=== PATIENT | male | born 1940 ===

== ENCOUNTER 2019-11-03 13:51 | Inpatient (IN) | payer MEDICAID, MEDICARE ==
[2019-11-03 16:40] LABS: Bilirubin,Urine NEG (Negative); Blood,Urine MOD (Negative); Color,Urine Yellow (Yellow); Mucus,Urine FEW /HPF; Urobilinogen,Urine < 2.0 mg/dL (<2.0)
[2019-11-03] MEDS ORDERED: SODIUM CHLORIDE 0.9% 1000 ML 1,000 ML IV ONE ×2 (16:40)
--- NOTE | 2019-11-03 16:40 | Emergency Department Report ---
ED General Adult HPI - General Chief complaint: Weakness Stated complaint: HYPOTENSION/DEMENTIA/LAB WORK Time Seen by Provider: 11/03/19 15:24 Source: EMS Mode of arrival: Ambulatory Limitations: Altered Mental Status, Physical Limitation - History of Present Illness Initial comments: The patient presents from a local alf for altered mental status and concern for systemic infection. Due to the patient's mental status is not able to add to the history and physical. -: unknown Severity scale (0 -10): 0 Consistency: constant Improves with: none Worsens with: none Associated Symptoms: other (Patient not able to answer questions about associated symptoms) Treatments Prior to Arrival: none - Related Data Previous Rx's Medication Instructions Recorded Last Taken Type Prednisone [predniSONE 10 mg 10 mg PO .TAPER #1 tab.ds.pk 02/02/16 Unknown Rx (6-Day Pack, 21 Tabs)] Amoxicillin/K Clav Tab [Augmentin 1 tab PO Q12HR #5 tab 02/03/16 Unknown Rx 875MG TAB] ALBUTEROL NEB's [Proventil 0.083% 2.5 mg IH Q3HRT PRN #30 nebu 02/04/16 Unknown Rx NEBS] Allergies Allergy/AdvReac Type Severity Reaction Status Date / Time No Known Allergies Allergy Unverified 01/31/16 13:51 ED Review of Systems ROS: Stated complaint: HYPOTENSION/DEMENTIA/LAB WORK Other details as noted in HPI Comment: Unobtainable due to pts medical conditions ED Past Medical Hx - Past Medical History Previous Medical History?: Yes Hx Psychiatric Treatment: Yes (dementia) - Surgical History Past Surgical History?: Yes Additional Surgical History: hand surgery as a child - Social History Smoking Status: Never Smoker Substance Use Type: None - Medications Home Medications: Home Medications Medication Instructions Recorded Confirmed Last Taken Type Prednisone [predniSONE 10 mg 10 mg PO .TAPER #1 tab.ds.pk 02/02/16 Unknown Rx (6-Day Pack, 21 Tabs)] Amoxicillin/K Clav Tab [Augmentin 1 tab PO Q12HR #5 tab 02/03/16 Unknown Rx 875MG TAB] ALBUTEROL NEB's [Proventil 0.083% 2.5 mg IH Q3HRT PRN #30 nebu 02/04/16 Unknown Rx NEBS] ED Physical Exam - General Limitations: Altered Mental Status, Physical Limitation General appearance: other (Altered) - Head Head exam: Present: atraumatic, normocephalic - Eye Eye exam: Present: normal appearance - ENT ENT exam: Present: mucous membranes dry - Neck Neck exam: Present: normal inspection - Respiratory Respiratory exam: Present: normal lung sounds bilaterally. Absent: respiratory distress, wheezes, rales - Cardiovascular Cardiovascular Exam: Present: normal rhythm, tachycardia. Absent: systolic murmur, diastolic murmur, rubs, gallop - GI/Abdominal GI/Abdominal exam: Present: soft, normal bowel sounds. Absent: distended, tenderness - Rectal Rectal exam: Present: deferred - Extremities Exam Extremities exam: Present: normal inspection - Back Exam Back exam: Present: normal inspection - Neurological Exam Neurological exam: Present: altered, other (Not able to assess cranial nerves or motor sensory deficits due to the patient's condition) - Psychiatric Psychiatric exam: Present: other (Not able to assess due to the patient's condition) - Skin Skin exam: Present: warm, dry, intact, normal color. Absent: rash ED Course Vital Signs 11/03/19 11/03/19 11/03/19 14:32 14:45 15:01 Temperature Pulse Rate 91 H 86 Respiratory 26 H 29 H Rate Blood Pressure 120/50 96/53 Blood Pressure [Right] O2 Sat by Pulse 90 91 93 Oximetry 11/03/19 11/03/19 11/03/19 15:15 15:18 16:19 Temperature 98.6 F Pulse Rate 94 H 89 Respiratory 26 H 18 18 Rate Blood Pressure 96/53 120/76 Blood Pressure 120/76 [Right] O2 Sat by Pulse 91 86 100 Oximetry ED Medical Decision Making - Lab Data Result diagrams: 11/03/19 16:24 11/03/19 16:24 Lab Results 11/03/19 11/03/19 11/03/19 Range/Units 16:24 16:24 16:24 WBC 18.3 H (4.5-11.0) K/mm3 RBC 4.74 (3.65-5.03) M/mm3 Hgb 13.9 (11.8-15.2) gm/dl Hct 43.7 (35.5-45.6) % MCV 92 (84-94) fl MCH 29 (28-32) pg MCHC 32 (32-34) % RDW 15.4 H (13.2-15.2) % Plt Count 294 (140-440) K/mm3 Lymph % (Auto) 6.2 L (13.4-35.0) % [place] % (Auto) 5.5 (0.0-7.3) % Eos % (Auto) 0.0 (0.0-4.3) % Baso % (Auto) 0.5 (0.0-1.8) % Lymph # 1.1 L (1.2-5.4) K/mm3 [place] # 1.0 H (0.0-0.8) K/mm3 Eos # 0.0 (0.0-0.4) K/mm3 Baso # 0.1 (0.0-0.1) K/mm3 Seg Neutrophils % 87.8 H (40.0-70.0) % Seg Neutrophils # 16.0 H (1.8-7.7) K/mm3 PT 15.7 H (12.2-14.9) Sec. INR 1.22 H (0.87-1.13) APTT 26.2 (24.2-36.6) Sec. Sodium 170 H* (137-145) mmol/L Potassium 3.8 (3.6-5.0) mmol/L Chloride 133.5 H (98-107) mmol/L Carbon Dioxide 20 L (22-30) mmol/L Anion Gap 20 mmol/L BUN 54 H (9-20) mg/dL Creatinine 1.4 H (0.8-1.3) mg/dL Estimated GFR 49 ml/min BUN/Creatinine Ratio 39 % Glucose 107 H (75-100) mg/dL Lactic Acid (0.7-2.0) mmol/L Calcium 9.3 (8.4-10.2) mg/dL Total Bilirubin 0.50 (0.1-1.2) mg/dL AST 57 H (5-40) units/L ALT 27 (7-56) units/L Alkaline Phosphatase 79 (35-129) units/L Troponin T 0.011 (0.00-0.029) ng/mL NT-Pro-B Natriuret Pep (0-900) pg/mL Total Protein 7.6 (6.3-8.2) g/dL Albumin 2.5 L (3.9-5) g/dL Albumin/Globulin Ratio 0.5 % Lipase 36 (13-60) units/L Urine Color (Yellow) Urine Turbidity (Clear) Urine pH (5.0-7.0) Ur Specific [place] (1.003-1.030) Urine Protein (Negative) mg/dL Urine Glucose (UA) (Negative) mg/dL Urine Ketones (Negative) mg/dL Urine Blood (Negative) Urine Nitrite (Negative) Urine Bilirubin (Negative) Urine Urobilinogen (<2.0) mg/dL Ur Leukocyte Esterase (Negative) Urine WBC (Auto) (0.0-6.0) /HPF Urine RBC (Auto) (0.0-6.0) /HPF U Epithel Cells (Auto) (0-13.0) /HPF Urine Mucus /HPF Urine Yeast (Budding) /HPF Urine Opiates Screen Urine Methadone Screen Ur Barbiturates Screen Ur Phencyclidine Scrn Ur Amphetamines Screen U Benzodiazepines Scrn Urine Cocaine Screen U Marijuana (THC) Screen Drugs of Abuse Note 11/03/19 11/03/19 11/03/19 Range/Units 16:24 16:24 16:29 WBC (4.5-11.0) K/mm3 RBC (3.65-5.03) M/mm3 Hgb (11.8-15.2) gm/dl Hct (35.5-45.6) % MCV (84-94) fl MCH (28-32) pg MCHC (32-34) % RDW (13.2-15.2) % Plt Count (140-440) K/mm3 Lymph % (Auto) (13.4-35.0) % [place] % (Auto) (0.0-7.3) % Eos % (Auto) (0.0-4.3) % Baso % (Auto) (0.0-1.8) % Lymph # (1.2-5.4) K/mm3 [place] # (0.0-0.8) K/mm3 Eos # (0.0-0.4) K/mm3 Baso # (0.0-0.1) K/mm3 Seg Neutrophils % (40.0-70.0) % Seg Neutrophils # (1.8-7.7) K/mm3 PT (12.2-14.9) Sec. INR (0.87-1.13) APTT (24.2-36.6) Sec. Sodium (137-145) mmol/L Potassium (3.6-5.0) mmol/L Chloride (98-107) mmol/L Carbon Dioxide (22-30) mmol/L Anion Gap mmol/L BUN (9-20) mg/dL Creatinine (0.8-1.3) mg/dL Estimated GFR ml/min BUN/Creatinine Ratio % Glucose (75-100) mg/dL Lactic Acid 2.10 H* (0.7-2.0) mmol/L Calcium (8.4-10.2) mg/dL Total Bilirubin (0.1-1.2) mg/dL AST (5-40) units/L ALT (7-56) units/L Alkaline Phosphatase (35-129) units/L Troponin T (0.00-0.029) ng/mL NT-Pro-B Natriuret Pep 1532 H (0-900) pg/mL Total Protein (6.3-8.2) g/dL Albumin (3.9-5) g/dL Albumin/Globulin Ratio % Lipase (13-60) units/L Urine Color Yellow (Yellow) Urine Turbidity Slightly-cloudy (Clear) Urine pH 5.0 (5.0-7.0) Ur Specific [place] 1.019 (1.003-1.030) Urine Protein 30 mg/dl (Negative) mg/dL Urine Glucose (UA) Neg (Negative) mg/dL Urine Ketones Neg (Negative) mg/dL Urine Blood Mod (Negative) Urine Nitrite Neg (Negative) Urine Bilirubin Neg (Negative) Urine Urobilinogen < 2.0 (<2.0) mg/dL Ur Leukocyte Esterase Neg (Negative) Urine WBC (Auto) 2.0 (0.0-6.0) /HPF Urine RBC (Auto) 2.0 (0.0-6.0) /HPF U Epithel Cells (Auto) < 1.0 (0-13.0) /HPF Urine Mucus Few /HPF Urine Yeast (Budding) Few /HPF Urine Opiates Screen Urine Methadone Screen Ur Barbiturates Screen Ur Phencyclidine Scrn Ur Amphetamines Screen U Benzodiazepines Scrn Urine Cocaine Screen U Marijuana (THC) Screen Drugs of Abuse Note 11/03/19 11/03/19 11/03/19 Range/Units 16:29 18:20 18:20 WBC (4.5-11.0) K/mm3 RBC (3.65-5.03) M/mm3 Hgb (11.8-15.2) gm/dl Hct (35.5-45.6) % MCV (84-94) fl MCH (28-32) pg MCHC (32-34) % RDW (13.2-15.2) % Plt Count (140-440) K/mm3 Lymph % (Auto) (13.4-35.0) % [place] % (Auto) (0.0-7.3) % Eos % (Auto) (0.0-4.3) % Baso % (Auto) (0.0-1.8) % Lymph # (1.2-5.4) K/mm3 [place] # (0.0-0.8) K/mm3 Eos # (0.0-0.4) K/mm3 Baso # (0.0-0.1) K/mm3 Seg Neutrophils % (40.0-70.0) % Seg Neutrophils # (1.8-7.7) K/mm3 PT (12.2-14.9) Sec. INR (0.87-1.13) APTT (24.2-36.6) Sec. Sodium (137-145) mmol/L Potassium (3.6-5.0) mmol/L Chloride (98-107) mmol/L Carbon Dioxide (22-30) mmol/L Anion Gap mmol/L BUN (9-20) mg/dL Creatinine (0.8-1.3) mg/dL Estimated GFR ml/min BUN/Creatinine Ratio % Glucose (75-100) mg/dL Lactic Acid 1.70 (0.7-2.0) mmol/L Calcium (8.4-10.2) mg/dL Total Bilirubin (0.1-1.2) mg/dL AST (5-40) units/L ALT (7-56) units/L Alkaline Phosphatase (35-129) units/L Troponin T < 0.010 (0.00-0.029) ng/mL NT-Pro-B Natriuret Pep (0-900) pg/mL Total Protein (6.3-8.2) g/dL Albumin (3.9-5) g/dL Albumin/Globulin Ratio % Lipase (13-60) units/L Urine Color (Yellow) Urine Turbidity (Clear) Urine pH (5.0-7.0) Ur Specific [place] (1.003-1.030) Urine Protein (Negative) mg/dL Urine Glucose (UA) (Negative) mg/dL Urine Ketones (Negative) mg/dL Urine Blood (Negative) Urine Nitrite (Negative) Urine Bilirubin (Negative) Urine Urobilinogen (<2.0) mg/dL Ur Leukocyte Esterase (Negative) Urine WBC (Auto) (0.0-6.0) /HPF Urine RBC (Auto) (0.0-6.0) /HPF U Epithel Cells (Auto) (0-13.0) /HPF Urine Mucus /HPF Urine Yeast (Budding) /HPF Urine Opiates Screen Presumptive negative Urine Methadone Screen Presumptive negative Ur Barbiturates Screen Presumptive negative Ur Phencyclidine Scrn Presumptive negative Ur Amphetamines Screen Presumptive negative U Benzodiazepines Scrn Presumptive negative Urine Cocaine Screen Presumptive negative U Marijuana (THC) Screen Presumptive negative Drugs of Abuse Note Disclamer - EKG Data -: EKG Interpreted by [place] EKG shows normal: sinus rhythm Rate: normal - Radiology Data Radiology results: report reviewed - Medical Decision Making Due to the patient's hyponatremia his 30 cc/kg of IV fluids for sepsis protocol will be given over 24 hours then 175 cc/h per sepsis [facility] protocol. IV antibiotics given Critical Care Time: Yes Critical care time in (mins) excluding proc time.: 35 Critical care attestation.: If time is entered above; I have spent that time in minutes in the direct care of this critically ill patient, excluding procedure time. ED Disposition Clinical Impression: SIRS (systemic inflammatory response syndrome), Hyponatremia, AMS (altered mental status) Disposition: OP ADMIT IP TO THIS HOSP Is pt being admited?: Yes Does the pt Need Aspirin: No Condition: Fair
[2019-11-03] MEDS ORDERED: SODIUM CHLORIDE 0.9% 500 ML 500 ML IV ONE (16:41)
[2019-11-03 16:46] LABS: Amphetamine Screen,Urine PRESUMPTIVE NEGATIVE; Benzodiazepines Screen,Urine PRESUMPTIVE NEGATIVE; Cannabinoid Screen,Urine PRESUMPTIVE NEGATIVE; Cocaine Screen,Urine PRESUMPTIVE NEGATIVE; Methadone Screen,Urine PRESUMPTIVE NEGATIVE; Opiate Screen,Urine PRESUMPTIVE NEGATIVE
--- NOTE | 2019-11-03 16:51 | XRay Report ---
CHEST 1 VIEW 1641 INDICATION / CLINICAL INFORMATION: Chest Pain, failure to thrive, altered mental status COMPARISON: 01/31/2016 FINDINGS: SUPPORT DEVICES: None HEART / MEDIASTINUM: No significant abnormality. LUNGS / PLEURA: Patient is mildly rotated. Less than full degree of inspiration is seen. In view of t his, no definite acute infiltrates are noted. No pneumothorax. ADDITIONAL FINDINGS: No significant additional findings. IMPRESSION: No significant acute abnormality Signer Name: Chandler Mansfield MD Signed: 11/03/2019 4:47 PM Workstation Name: [id number]
[2019-11-03 17:26] LABS: Basophils # (Auto) 0.1 K/mm3 (0.0-0.1); Basophils % (Auto) 0.5 % (0.0-1.8); Hematocrit 43.7 % (35.5-45.6); Hemoglobin 13.9 gm/dl (11.8-15.2); Lymphocytes # (Auto) 1.1 K/mm3 (1.2-5.4); Lymphocytes % (Auto) 6.2 % (13.4-35.0); Mean Corpuscular HGB Conc 32 % (32-34); Mean Corpuscular Volume 92 fl (84-94); Monocytes % (Auto) 5.5 % (0.0-7.3); Platelet Count 294 K/mm3 (140-440); Red Blood Count 4.74 M/mm3 (3.65-5.03); Red Cell Distribution Width 15.4 % (13.2-15.2)
--- NOTE | 2019-11-03 17:26 | Cat Scan Report ---
NONENHANCED CT SCAN OF THE HEAD: INDICATION / CLINICAL INFORMATION: 78 years Male; weakneaa. TECHNIQUE: Routine CT head without contrast. All CT scans at this location are performed using CT dos e reduction for ALARA by means of automated exposure control. COMPARISON: None. FINDINGS: BRAIN / INTRACRANIAL CONTENTS: 2 ventricle sets of nonenhanced CT scan of the head from 11/03/2019 obt ained at 4:56 PM and 5:03 PM are available for interpretation. No previous imaging studies are availa ble. No hemorrhage or stroke mimics. Encephalomalacia is seen in the corpus stratum bilaterally with compensatory enlargement of the front al horns. Extensive periventricular low attenuation areas are seen due to chronic small vessel diseas e. Focal small low-attenuation deep hemispheric white matter lesions are seen coronal due to chronic small vessel disease. Small left thalamic lacune is seen. It is difficult to determine the age of thi s lacune. Chronic ischemic changes are seen in the paul. Cerebellar hemispheres are normal. Mild cortical involution is seen. CRANIOCERVICAL JUNCTION: No significant abnormality. ORBITS: No significant abnormality of visualized orbits. SINUSES / MASTOIDS: No significant abnormality of the visualized paranasal sinuses or mastoid air les ls. ADDITIONAL FINDINGS: None. 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
[2019-11-03 17:40] LABS: Albumin 2.5 g/dL (3.9-5); Calcium 9.3 mg/dL (8.4-10.2)
[2019-11-03 17:44] LABS: INR 1.22 (0.87-1.13)
[2019-11-03 17:45] LABS: Partial Thromboplastin Time 26.2 Sec. (24.2-36.6)
[2019-11-03] MEDS ORDERED: CEFEPIME/NS 1 GM/100 ML 1 GM/100 ML BAG IV ONE (17:52)
[2019-11-03] MEDS ORDERED: HYDROmorphone 1 MG/1 ML INJ IV ONE (21:41)
[2019-11-04] MEDS ORDERED: ONDANSETRON 4 MG/2 ML INJ IV PRN (00:25)
[2019-11-04] MEDS ORDERED: SODIUM CHLORIDE 0.9% 1000 ML 1,000 ML IV SCH (00:30)
--- NOTE | 2019-11-04 00:33 | History and Physical Report ---
History of Present Illness Date of examination: 11/03/19 Date of admission: 11/03/19 22:42 Chief complaint: Altered mental status History of present illness: 78-year-old male with history of dementia [facility] for changes in mental status which started today. Patient is unable to give any history and most of the history was gotten from the ER physician. There was said to be constant at the jail and patient may have an unde rlying infection. Work-up in the emergency room reveals a leukocytosis of 18, hypernatremia of 170, elevated BUN and creatinine and slightly elevated lactic acid. Chest x-ray and urinalysis were within normal limits Patient is being treated for dehydration,SIRS. Was commenced on IV fluid and also placed on empiric IV antibiotics. Past History Past Medical History: other (Dementia) Past Surgical History: Other (Hand surgery in childhood) Social history: other (Unknown) Family history: other (Unknown) Medications and Allergies Allergies Allergy/AdvReac Type Severity Reaction Status Date / Time No Known Allergies Allergy Unverified 01/31/16 13:51 Home Medications Medication Instructions Recorded Confirmed Last Taken Type Prednisone [predniSONE 10 mg 10 mg PO .TAPER #1 tab.ds.pk 02/02/16 11/04/19 Unknown Rx (6-Day Pack, 21 Tabs)] Amoxicillin/K Clav Tab [Augmentin 1 tab PO Q12HR #5 tab 02/03/16 11/04/19 Unknown Rx 875MG TAB] ALBUTEROL NEB's [Proventil 0.083% 2.5 mg IH Q3HRT PRN #30 nebu 02/04/16 11/04/19 Unknown Rx NEBS] Review of Systems ROS unobtainable: due to mental status Exam - Constitutional Vitals: Temp Pulse Resp BP Pulse Ox 98.6 F 77 24 115/63 97 11/03/19 15:18 11/03/19 23:01 11/03/19 23:01 11/03/19 23:01 11/03/19 23:01 General appearance: Present: no acute distress, well-nourished - EENT Eyes: Present: PERRL, EOM intact ENT: hearing intact, clear oral mucosa, dentition normal - Neck Neck: Present: supple, normal ROM - Respiratory Respiratory effort: normal Respiratory: bilateral: CTA - Cardiovascular Rhythm: regular Heart Sounds: Present: S1 & S2. Absent: gallop, systolic murmur, diastolic murmur, rub - Extremities Extremities: no ischemia, pulses intact, pulses symmetrical, No edema, Full ROM - Abdominal General gastrointestinal: Present: soft, non-tender, non-distended, normal bowel sounds. Absent: mass - Integumentary Integumentary: Present: clear, warm, dry. Absent: rash - Musculoskeletal Musculoskeletal: strength equal bilaterally - Psychiatric Psychiatric: cooperative - Neurologic Neurologic: CNII-XII intact, moves all extremities HEART Score - HEART Score Troponin: Troponin T < 0.010 ng/mL (0.00-0.029) 11/03/19 18:20 Results - Labs CBC & Chem 7: 11/03/19 16:24 11/03/19 16:24 Labs: Abnormal lab results 11/03/19 11/03/19 11/03/19 Range/Units 16:24 16:24 16:24 WBC 18.3 H (4.5-11.0) K/mm3 RDW 15.4 H (13.2-15.2) % Lymph % (Auto) 6.2 L (13.4-35.0) % Lymph # 1.1 L (1.2-5.4) K/mm3 [place] # 1.0 H (0.0-0.8) K/mm3 Seg Neutrophils % 87.8 H (40.0-70.0) % Seg Neutrophils # 16.0 H (1.8-7.7) K/mm3 PT 15.7 H (12.2-14.9) Sec. INR 1.22 H (0.87-1.13) Sodium 170 H* (137-145) mmol/L Chloride 133.5 H (98-107) mmol/L Carbon Dioxide 20 L (22-30) mmol/L BUN 54 H (9-20) mg/dL Creatinine 1.4 H (0.8-1.3) mg/dL Glucose 107 H (75-100) mg/dL Lactic Acid (0.7-2.0) mmol/L AST 57 H (5-40) units/L NT-Pro-B Natriuret Pep (0-900) pg/mL Albumin 2.5 L (3.9-5) g/dL 11/03/19 11/03/19 Range/Units 16:24 16:24 WBC (4.5-11.0) K/mm3 RDW (13.2-15.2) % Lymph % (Auto) (13.4-35.0) % Lymph # (1.2-5.4) K/mm3 [place] # (0.0-0.8) K/mm3 Seg Neutrophils % (40.0-70.0) % Seg Neutrophils # (1.8-7.7) K/mm3 PT (12.2-14.9) Sec. INR (0.87-1.13) Sodium (137-145) mmol/L Chloride (98-107) mmol/L Carbon Dioxide (22-30) mmol/L BUN (9-20) mg/dL Creatinine (0.8-1.3) mg/dL Glucose (75-100) mg/dL Lactic Acid 2.10 H* (0.7-2.0) mmol/L AST (5-40) units/L NT-Pro-B Natriuret Pep 1532 H (0-900) pg/mL Albumin (3.9-5) g/dL Assessment and Plan - Patient Problems (1) Hypernatremia Current Visit: Yes Status: Acute Plan to address problem: Possibly secondary to dehydration. Patient placed on IV fluids and will monitor chemistry (2) Dehydration Current Visit: Yes Status: Acute Plan to address problem: We will continue on IV fluid and monitor chemistry. (3) Leucocytosis Current Visit: Yes Status: Acute Plan to address problem: Possibly reactive. We will monitor CBC. (4) AMS (altered mental status) Current Visit: Yes Status: Acute Plan to address problem: Possibly secondary to the hypernatremia and a baseline history of dementia. (5) SIRS (systemic inflammatory response syndrome) Current Visit: Yes Status: Acute Plan to address problem: There has been no obvious source of infection. However patient was placed on empiric IV antibiotics. (6) DVT prophylaxis Current Visit: Yes Status: Acute Plan to address problem: Patient placed on anticoagulation. (7) Full code status Current Visit: Yes Status: Acute
[2019-11-04] MEDS: HEPARIN 5,000 UNIT/1 ML VIAL SUB-Q SCH ×3 (05:50→21:47)
[2019-11-04 07:20] LABS: Basophils % (Auto) 0.2 % (0.0-1.8); Hematocrit 39.3 % (35.5-45.6); Hemoglobin 12.6 gm/dl (11.8-15.2); Lymphocytes # (Auto) 0.7 K/mm3 (1.2-5.4); Lymphocytes % (Auto) 5.1 % (13.4-35.0); Mean Corpuscular HGB Conc 32 % (32-34); Mean Corpuscular Volume 95 fl (84-94); Monocytes # (Auto) 0.8 K/mm3 (0.0-0.8); Monocytes % (Auto) 5.7 % (0.0-7.3); Platelet Count 222 K/mm3 (140-440); Red Blood Count 4.14 M/mm3 (3.65-5.03); Red Cell Distribution Width 15.4 % (13.2-15.2)
[2019-11-04 07:40] LABS: Calcium 8.1 mg/dL (8.4-10.2)
[2019-11-04] MEDS ORDERED: DEXTROSE 5% IN WATER 1,000 ML IV SCH ×2 (09:00→16:00)
--- NOTE | 2019-11-04 09:55 | Progress Note ---
Assessment and Plan Assessment and plan: Acute toxic metabolic encephalopathy. Patient with a sodium of 170 on admission and now 175. We will continue to treat hyponatremia as likely etiology. Severe hypernatremia. Nephrology consulted. Start hypotonic IV fluids with D5W at 75 cc an hour. Monitor serial CBC. SIRS. Patient meets criteria given the tachycardia, tachypnea and leukocytosis but no obvious signs of infection. Urinalysis and checks x-ray are negative. Follow-up blood cultures. Acute renal failure. Etiology secondary to acute kidney injury from vasomotor nephropathy/dehydration. Continue IV fluids and follow-up BMP. Hypokalemia. Replete potassium. History Interval history: No new issues overnight. Patient remains confused. Hospitalist Physical - Constitutional Vitals: Temp Pulse Resp BP Pulse Ox 97.9 F 68 20 109/59 96 11/04/19 04:48 11/04/19 04:48 11/04/19 05:00 11/04/19 04:48 11/04/19 07:40 General appearance: Present: no acute distress, well-nourished - EENT Eyes: Present: PERRL, EOM intact ENT: hearing intact, clear oral mucosa, dentition normal - Neck Neck: Present: supple, normal ROM - Respiratory Respiratory effort: normal Respiratory: bilateral: CTA - Cardiovascular Rhythm: regular Heart Sounds: Present: S1 & S2. Absent: gallop, rub - Extremities Extremities: no ischemia, No edema, Full ROM - Abdominal General gastrointestinal: soft, non-tender, non-distended, normal bowel sounds - Integumentary Integumentary: Present: clear, warm, dry - Neurologic Neurologic: CNII-XII intact, moves all extremities HEART Score - HEART Score Troponin: Troponin T < 0.010 ng/mL (0.00-0.029) 11/03/19 18:20 Results - Labs CBC & Chem 7: 11/04/19 06:52 11/04/19 06:52 Labs: Laboratory Last Values WBC 14.3 K/mm3 (4.5-11.0) H 11/04/19 06:52 RBC 4.14 M/mm3 (3.65-5.03) 11/04/19 06:52 Hgb 12.6 gm/dl (11.8-15.2) 11/04/19 06:52 Hct 39.3 % (35.5-45.6) 11/04/19 06:52 MCV 95 fl (84-94) H 11/04/19 06:52 MCH 30 pg (28-32) 11/04/19 06:52 MCHC 32 % (32-34) 11/04/19 06:52 RDW 15.4 % (13.2-15.2) H 11/04/19 06:52 Plt Count 222 K/mm3 (140-440) 11/04/19 06:52 Lymph % (Auto) 5.1 % (13.4-35.0) L 11/04/19 06:52 [place] % (Auto) 5.7 % (0.0-7.3) 11/04/19 06:52 Eos % (Auto) 0.0 % (0.0-4.3) 11/04/19 06:52 Baso % (Auto) 0.2 % (0.0-1.8) 11/04/19 06:52 Lymph # 0.7 K/mm3 (1.2-5.4) L 11/04/19 06:52 [place] # 0.8 K/mm3 (0.0-0.8) 11/04/19 06:52 Eos # 0.0 K/mm3 (0.0-0.4) 11/04/19 06:52 Baso # 0.0 K/mm3 (0.0-0.1) 11/04/19 06:52 Seg Neutrophils % 89.0 % (40.0-70.0) H 11/04/19 06:52 Seg Neutrophils # 12.7 K/mm3 (1.8-7.7) H 11/04/19 06:52 PT 15.7 Sec. (12.2-14.9) H 11/03/19 16:24 INR 1.22 (0.87-1.13) H 11/03/19 16:24 APTT 26.2 Sec. (24.2-36.6) 11/03/19 16:24 Sodium 175 mmol/L (137-145) H* 11/04/19 06:52 Potassium 3.2 mmol/L (3.6-5.0) L 11/04/19 06:52 Chloride 138.1 mmol/L (98-107) H 11/04/19 06:52 Carbon Dioxide 21 mmol/L (22-30) L 11/04/19 06:52 Anion Gap 16 mmol/L 11/04/19 06:52 BUN 50 mg/dL (9-20) H 11/04/19 06:52 Creatinine 1.3 mg/dL (0.8-1.3) 11/04/19 06:52 Estimated GFR 54 ml/min 11/04/19 06:52 BUN/Creatinine Ratio 38 % 11/04/19 06:52 Glucose 102 mg/dL (75-100) H 11/04/19 06:52 Lactic Acid 1.70 mmol/L (0.7-2.0) 11/03/19 18:20 Calcium 8.1 mg/dL (8.4-10.2) L 11/04/19 06:52 Total Bilirubin 0.50 mg/dL (0.1-1.2) 11/03/19 16:24 AST 57 units/L (5-40) H 11/03/19 16:24 ALT 27 units/L (7-56) 11/03/19 16:24 Alkaline Phosphatase 79 units/L (35-129) 11/03/19 16:24 Troponin T < 0.010 ng/mL (0.00-0.029) 11/03/19 18:20 NT-Pro-B Natriuret Pep 1532 pg/mL (0-900) H 11/03/19 16:24 Total Protein 7.6 g/dL (6.3-8.2) 11/03/19 16:24 Albumin 2.5 g/dL (3.9-5) L 11/03/19 16:24 Albumin/Globulin Ratio 0.5 % 11/03/19 16:24 Lipase 36 units/L (13-60) 11/03/19 16:24 Urine Color Yellow (Yellow) 11/03/19 16:29 Urine Turbidity Slightly-cloudy (Clear) 11/03/19 16: Urine pH 5.0 (5.0-7.0) 11/03/19 16: Ur Specific [place] 1.019 (1.003-1.030) 11/03/19 16: Urine Protein 30 mg/dl mg/dL (Negative) 11/03/19 16: Urine Glucose (UA) Neg mg/dL (Negative) 11/03/19 16:29 Urine Ketones Neg mg/dL (Negative) 11/03/19 16:29 Urine Blood Mod (Negative) 11/03/19 16:29 Urine Nitrite Neg (Negative) 11/03/19 16:29 Urine Bilirubin Neg (Negative) 11/03/19 16:29 Urine Urobilinogen < 2.0 mg/dL (<2.0) 11/03/19 16:29 Ur Leukocyte Esterase Neg (Negative) 11/03/19 16:29 Urine WBC (Auto) 2.0 /HPF (0.0-6.0) 11/03/19 16:29 Urine RBC (Auto) 2.0 /HPF (0.0-6.0) 11/03/19 16:29 U Epithel Cells (Auto) < 1.0 /HPF (0-13.0) 11/03/19 16:29 Urine Mucus Few /HPF 11/03/19 16:29 Urine Yeast (Budding) Few /HPF 11/03/19 16:29 Urine Opiates Screen Presumptive negative 11/03/19 16:29 Urine Methadone Screen Presumptive negative 11/03/19 16:29 Ur Barbiturates Screen Presumptive negative 11/03/19 16:29 Ur Phencyclidine Scrn Presumptive negative 11/03/19 16:29 Ur Amphetamines Screen Presumptive negative 11/03/19 16:29 U Benzodiazepines Scrn Presumptive negative 11/03/19 16:29 Urine Cocaine Screen Presumptive negative 11/03/19 16:29 U Marijuana (THC) Screen Presumptive negative 11/03/19 16:29 Drugs of Abuse Note Disclamer 11/03/19 16:29 Microbiology: Microbiology 11/03/19 16:24 Peripheral/Venous Blood Culture - Preliminary Culture in Progress 11/03/19 16:24 Peripheral/Venous Blood Culture - Preliminary Culture in Progress Alcazar/IV: Voiding Method Diaper IV Catheter Type [Left Forearm INT / Saline Lock ] Active Medications - Current Medications Current Medications: Generic Name Dose Route Start Last Admin Trade Name Freq PRN Reason Stop Dose Admin Acetaminophen 650 mg 11/04/19 00:25 Tylenol PO Q4H PRN Pain MILD(1-3)/Fever >100.5/VALENTIN Heparin Sodium (Porcine) 5,000 unit 11/04/19 06:00 11/04/19 05:50 Heparin SUB-Q 5,000 unit Q8HR GIDEON Administration Dextrose 1,000 mls @ 75 mls/hr 11/04/19 09:00 D5w IV DIRECT GIDEON Ondansetron HCl 4 mg 11/04/19 00:25 Zofran IV Q8H PRN Nausea And Vomiting Sodium Chloride 10 ml 11/04/19 10:00 Sodium Chloride Flush Syringe 10 Ml IV BID GIDEON Sodium Chloride 10 ml 11/04/19 00:25 Sodium Chloride Flush Syringe 10 Ml IV PRN PRN LINE FLUSH Nutrition/Malnutrition Assess - Dietary Evaluation Nutrition/Malnutrition Findings: Nutrition Notes Start: 11/04/19 09:16 Freq: Status: Active Protocol: Document 11/04/19 09:16 LP (Rec: 11/04/19 09:22 LP [id number]) Nutrition Notes Need for Assessment generated from: transcript clerk Initial or Follow up Assessment Other Pertinent Diagnosis Dehydration, AMS, SIRS Current Diet NPO Labs/Tests Na 175 K 3.2 BUN 50 BG 102 Pertinent Medications NS at 125ml/h Height 5 ft 10 in Weight 79.379 kg [place] Body Weight (kg) 75.45 BMI 25.1 Weight Status Overweight Subjective/Other Information Screen for MST. Pt from NH and unable to comprehend, and noted with bilateral weak fish peddler strength. Burn Absent Trauma Absent GI Symptoms None Current % PO Negligible Minimum of two criteria Yes Energy Intake (severe) < or equal to 50% Estimated Energy Requirement > or equal to 5 days Reduced Spare Parts Clerk Strength Measurably Reduced (severe) #1 Nutrition Diagnosis Malnutrition Etiology advanced age/AMS As Evidenced by Signs and Symptoms Pt admitted with dehydration and weak fish peddler strength Is patient on ventilator? No Is Patient Ambulatory and/or Out of Bed No REE-([facility]-confined to bed) [phone] Calculation Used for Recommendations [facility] Additional Notes Protein needs are 95-119g (1.2 -1.5g/kg) Fluid needs are 1ml/kcal Nutrition Intervention Change Diet Order: Advance diet as feasible to Regular diet Nutrition Support: May need TF if AMS continues Goal #1 Advance diet as feasible Goal #2 Na WNL Anticipated Discharge Needs: Unable to determine at this time Follow-Up By: 11/06/19 Additional Comments Follow for diet advancement and intakes or need for nutrition support
--- NOTE | 2019-11-04 10:02 | Consultation ---
History of Present Illness - Reason for Consult Consult date: 11/04/19 hypernatremia - History of Present Illness HPI: Mr Loving is a 78 year old M with a PMH of dementia who has been admitted to the [facility] with hypernatremia. Pt is altered and cannot give any history. Pt has been found to have severe hypernatremia. ROS: Unable to obtain due to AMS Past History Past Medical History: other (Dementia) Past Surgical History: Other (Hand surgery in childhood) Social history: other (Unknown) Family history: other (Unknown) Medications and Allergies Allergies Allergy/AdvReac Type Severity Reaction Status Date / Time No Known Allergies Allergy Unverified 01/31/16 13:51 Home Medications Medication Instructions Recorded Confirmed Last Taken Type Prednisone [predniSONE 10 mg 10 mg PO .TAPER #1 tab.ds.pk 02/02/16 11/04/19 Unknown Rx (6-Day Pack, 21 Tabs)] Amoxicillin/K Clav Tab [Augmentin 1 tab PO Q12HR #5 tab 02/03/16 11/04/19 Unknown Rx 875MG TAB] ALBUTEROL NEB's [Proventil 0.083% 2.5 mg IH Q3HRT PRN #30 nebu 02/04/16 11/04/19 Unknown Rx NEBS] Active Meds: Active Medications Acetaminophen (Tylenol) 650 mg PO Q4H PRN PRN Reason: Pain MILD(1-3)/Fever >100.5/VALENTIN Heparin Sodium (Porcine) (Heparin) 5,000 unit SUB-Q Q8HR GIDEON Last Admin: 11/04/19 05:50 Dose: 5,000 unit Documented by: Dextrose (D5w) 1,000 mls @ 75 mls/hr IV DIRECT GIDEON Last Admin: 11/04/19 10:00 Dose: 75 mls/hr Documented by: Ondansetron HCl (Zofran) 4 mg IV Q8H PRN PRN Reason: Nausea And Vomiting Sodium Chloride (Sodium Chloride Flush Syringe 10 Ml) 10 ml IV BID GIDEON Sodium Chloride (Sodium Chloride Flush Syringe 10 Ml) 10 ml IV PRN PRN PRN Reason: LINE FLUSH Exam - Vital Signs Vital signs: Vital Signs Pulse Ox 90 11/03/19 14:32 - Physical Exam Narrative exam: - EENT Eyes: Present: PERRL, EOM intact ENT: hearing intact, clear oral mucosa, dentition normal - Neck Neck: Present: supple, normal ROM - Respiratory Respiratory effort: normal Respiratory: bilateral: CTA - Cardiovascular Rhythm: regular Heart Sounds: Present: S1 & S2. Absent: gallop, systolic murmur, diastolic murmur, rub - Extremities Extremities: no ischemia, pulses intact, pulses symmetrical, No edema, Full ROM - Abdominal General gastrointestinal: Present: soft, non-tender, non-distended, normal bowel sounds. Absent: mass - Integumentary Integumentary: Present: clear, warm, dry. Absent: rash - Musculoskeletal Musculoskeletal: strength equal bilaterally - Psychiatric Psychiatric: altered - Neurologic Neurologic: CNII-XII intact, moves all extremities Results - Lab Results 11/04/19 06:52 11/04/19 06:52 Most recent lab results Calcium 8.1 mg/dL (8.4-10.2) L 11/04/19 06:52 Assessment and Plan Hypernatremia: Acute renal failure likely pre-renal: Dehydration: Altered Mental status: SIRS: History of dementia: -Inc D5W rate to 100 mls/hr -Check BMP q4H -Target drop in Na <10 meq/24 hours to prevent Cerebral edema -Strict I/Os Sixto Caruso MD [phone]
[2019-11-04] MEDS: ACETAMINOPHEN 325 MG TAB PO PRN (17:55)
[2019-11-04 20:43] LABS: Calcium 8.4 mg/dL (8.4-10.2)
[2019-11-04] MEDS ORDERED: POTASSIUM CHLORIDE ER 20 MEQ TAB PO ONE (22:00)
[2019-11-04] MEDS: POTASSIUM CHLORIDE 10 MEQ 10 MEQ/100 ML BAG IV SCH (23:17)
[2019-11-05 00:08] LABS: Calcium 8.2 mg/dL (8.4-10.2)
[2019-11-05] MEDS: POTASSIUM CHLORIDE 10 MEQ 10 MEQ/100 ML BAG IV SCH (03:16)
[2019-11-05] MEDS: HEPARIN 5,000 UNIT/1 ML VIAL SUB-Q SCH ×3 (05:03→21:00)
[2019-11-05 08:25] LABS: Basophils # (Auto) 0.1 K/mm3 (0.0-0.1); Basophils % (Auto) 0.6 % (0.0-1.8); Eosinophils % (Auto) 0.1 % (0.0-4.3); Hematocrit 40.3 % (35.5-45.6); Lymphocytes # (Auto) 0.9 K/mm3 (1.2-5.4); Lymphocytes % (Auto) 6.4 % (13.4-35.0); Mean Corpuscular HGB Conc 32 % (32-34); Mean Corpuscular Volume 93 fl (84-94); Monocytes # (Auto) 0.6 K/mm3 (0.0-0.8); Monocytes % (Auto) 4.5 % (0.0-7.3); Platelet Count 224 K/mm3 (140-440); Red Blood Count 4.33 M/mm3 (3.65-5.03); Red Cell Distribution Width 15.2 % (13.2-15.2)
[2019-11-05 08:33] LABS: INR 1.26 (0.87-1.13)
[2019-11-05 08:34] LABS: BUN/Creatinine Ratio TNR; Blood Urea Nitrogen TNR mg/dL (9-20)
[2019-11-05 08:35] LABS: Calcium TNR mg/dL (8.4-10.2); Hemolysis Index TNR
--- NOTE | 2019-11-05 09:12 | Progress Note ---
Assessment and Plan Assessment and plan: Acute toxic metabolic encephalopathy. Patient with a sodium of 170 on admission and now 175. We will continue to treat hyponatremia as likely etiology. Severe hypernatremia. Nephrology consulted. Start hypotonic IV fluids with D5W at 75 cc an hour. Monitor serial CBC. SIRS. Patient meets criteria given the tachycardia, tachypnea and leukocytosis but no obvious signs of infection. Urinalysis and checks x-ray are negative. Follow-up blood cultures. Acute renal failure. Etiology secondary to acute kidney injury from vasomotor nephropathy/dehydration. Continue IV fluids and follow-up BMP. Hypokalemia. Replete potassium. 11/05/2019. Replete potassium. Hyponatremia has improved from 175> 171> 166. Continue to monitor BMP closely. Nephrology following. History Interval history: No new issues overnight. Patient remains confused. Hospitalist Physical - Constitutional Vitals: Temp Pulse Resp BP Pulse Ox 99.0 F 74 18 131/64 97 11/05/19 06:18 11/05/19 06:18 11/05/19 06:18 11/05/19 06:18 11/05/19 09:07 General appearance: Present: no acute distress, well-nourished - EENT Eyes: Present: PERRL, EOM intact ENT: hearing intact, clear oral mucosa, dentition normal - Neck Neck: Present: supple, normal ROM - Respiratory Respiratory effort: normal Respiratory: bilateral: CTA - Cardiovascular Rhythm: regular Heart Sounds: Present: S1 & S2. Absent: gallop, rub - Extremities Extremities: no ischemia, No edema, Full ROM - Abdominal General gastrointestinal: soft, non-tender, non-distended, normal bowel sounds - Integumentary Integumentary: Present: clear, warm, dry - Neurologic Neurologic: CNII-XII intact, moves all extremities HEART Score - HEART Score Troponin: Troponin T < 0.010 ng/mL (0.00-0.029) 11/03/19 18:20 Results - Labs CBC & Chem 7: 11/05/19 07:08 11/05/19 07:08 Labs: Laboratory Last Values WBC 13.4 K/mm3 (4.5-11.0) H 11/05/19 07:08 RBC 4.33 M/mm3 (3.65-5.03) 11/05/19 07:08 Hgb 13.0 gm/dl (11.8-15.2) 11/05/19 07:08 Hct 40.3 % (35.5-45.6) 11/05/19 07:08 MCV 93 fl (84-94) 11/05/19 07:08 MCH 30 pg (28-32) 11/05/19 07:08 MCHC 32 % (32-34) 11/05/19 07:08 RDW 15.2 % (13.2-15.2) 11/05/19 07:08 Plt Count 224 K/mm3 (140-440) 11/05/19 07:08 Lymph % (Auto) 6.4 % (13.4-35.0) L 11/05/19 07:08 [place] % (Auto) 4.5 % (0.0-7.3) 11/05/19 07:08 Eos % (Auto) 0.1 % (0.0-4.3) 11/05/19 07:08 Baso % (Auto) 0.6 % (0.0-1.8) 11/05/19 07:08 Lymph # 0.9 K/mm3 (1.2-5.4) L 11/05/19 07:08 [place] # 0.6 K/mm3 (0.0-0.8) 11/05/19 07:08 Eos # 0.0 K/mm3 (0.0-0.4) 11/05/19 07:08 Baso # 0.1 K/mm3 (0.0-0.1) 11/05/19 07:08 Seg Neutrophils % 88.4 % (40.0-70.0) H 11/05/19 07:08 Seg Neutrophils # 11.9 K/mm3 (1.8-7.7) H 11/05/19 07:08 PT 16.1 Sec. (12.2-14.9) H 11/05/19 07:08 INR 1.26 (0.87-1.13) H 11/05/19 07:08 APTT 26.2 Sec. (24.2-36.6) 11/03/19 16:24 Sodium TNR 11/05/19 07:08 Potassium TNR 11/05/19 07:08 Chloride TNR 11/05/19 07:08 Carbon Dioxide TNR 11/05/19 07:08 Anion Gap TNR 11/05/19 07:08 BUN TNR 11/05/19 07:08 Creatinine TNR 11/05/19 07:08 Estimated GFR TNR 11/05/19 07:08 BUN/Creatinine Ratio TNR 11/05/19 07:08 Glucose TNR 11/05/19 07:08 Lactic Acid 1.70 mmol/L (0.7-2.0) 11/03/19 18:20 Calcium TNR 11/05/19 07:08 Total Bilirubin 0.50 mg/dL (0.1-1.2) 11/03/19 16:24 AST 57 units/L (5-40) H 11/03/19 16:24 ALT 27 units/L (7-56) 11/03/19 16:24 Alkaline Phosphatase 79 units/L (35-129) 11/03/19 16:24 Troponin T < 0.010 ng/mL (0.00-0.029) 11/03/19 18:20 NT-Pro-B Natriuret Pep 1532 pg/mL (0-900) H 11/03/19 16:24 Total Protein 7.6 g/dL (6.3-8.2) 11/03/19 16:24 Albumin 2.5 g/dL (3.9-5) L 11/03/19 16:24 Albumin/Globulin Ratio 0.5 % 11/03/19 16:24 Lipase 36 units/L (13-60) 11/03/19 16:24 Urine Color Yellow (Yellow) 11/03/19 16:29 Urine Turbidity Slightly-cloudy (Clear) 11/03/19 16:29 Urine pH 5.0 (5.0-7.0) 11/03/19 16:29 Ur Specific [place] 1.019 (1.003-1.030) 11/03/19 16:29 Urine Protein 30 mg/dl mg/dL (Negative) 11/03/19 16:29 Urine Glucose (UA) Neg mg/dL (Negative) 11/03/19 16:29 Urine Ketones Neg mg/dL (Negative) 11/03/19 16:29 Urine Blood Mod (Negative) 11/03/19 16:29 Urine Nitrite Neg (Negative) 11/03/19 16:29 Urine Bilirubin Neg (Negative) 11/03/19 16:29 Urine Urobilinogen < 2.0 mg/dL (<2.0) 11/03/19 16:29 Ur Leukocyte Esterase Neg (Negative) 11/03/19 16:29 Urine WBC (Auto) 2.0 /HPF (0.0-6.0) 11/03/19 16:29 Urine RBC (Auto) 2.0 /HPF (0.0-6.0) 11/03/19 16:29 U Epithel Cells (Auto) < 1.0 /HPF (0-13.0) 11/03/19 16:29 Urine Mucus Few /HPF 11/03/19 16:29 Urine Yeast (Budding) Few /HPF 11/03/19 16:29 Urine Opiates Screen Presumptive negative 11/03/19 16:29 Urine Methadone Screen Presumptive negative 11/03/19 16:29 Ur Barbiturates Screen Presumptive negative 11/03/19 16:29 Ur Phencyclidine Scrn Presumptive negative 11/03/19 16:29 Ur Amphetamines Screen Presumptive negative 11/03/19 16:29 U Benzodiazepines Scrn Presumptive negative 11/03/19 16:29 Urine Cocaine Screen Presumptive negative 11/03/19 16:29 U Marijuana (THC) Screen Presumptive negative 11/03/19 16:29 Drugs of Abuse Note Disclamer 11/03/19 16:29 Coronavirus (PCR) Negative (Negative) 11/04/19 09:56 Microbiology: Microbiology 11/03/19 16:24 Peripheral/Venous Blood Culture - Preliminary NO GROWTH AFTER 24 HOURS 11/03/19 16:24 Peripheral/Venous Blood Culture - Preliminary NO GROWTH AFTER 24 HOURS Alcazar/IV: Voiding Method Indwelling Catheter IV Catheter Type [Left Forearm INT / Saline Lock ] Active Medications - Current Medications Current Medications: Generic Name Dose Route Start Last Admin Trade Name Freq PRN Reason Stop Dose Admin Acetaminophen 650 mg 11/04/19 00:25 11/04/19 17:55 Tylenol PO 650 mg Q4H PRN Administration Pain MILD(1-3)/Fever >100.5/VALENTIN Heparin Sodium (Porcine) 5,000 unit 11/04/19 06:00 11/05/19 05:03 Heparin SUB-Q 5,000 unit Q8HR GIDEON Administration Dextrose 1,000 mls @ 100 mls/hr 11/04/19 16:00 D5w IV DIRECT GIDEON Ondansetron HCl 4 mg 11/04/19 00:25 Zofran IV Q8H PRN Nausea And Vomiting Sodium Chloride 10 ml 11/04/19 10:00 11/04/19 23:20 Sodium Chloride Flush Syringe 10 Ml IV Not Given BID GIDEON Sodium Chloride 10 ml 11/04/19 00:25 Sodium Chloride Flush Syringe 10 Ml IV PRN PRN LINE FLUSH Nutrition/Malnutrition Assess - Dietary Evaluation Nutrition/Malnutrition Findings: Nutrition Notes Start: 11/04/19 09:16 Freq: Status: Active Protocol: Document 11/04/19 09:16 LP (Rec: 11/04/19 09:22 LP [id number]) Nutrition Notes Need for Assessment generated from: vice president of procurement Initial or Follow up Assessment Other Pertinent Diagnosis Dehydration, AMS, SIRS Current Diet NPO Labs/Tests Na 175 K 3.2 BUN 50 BG 102 Pertinent Medications NS at 125ml/h Height 5 ft 10 in Weight 79.379 kg [place] Body Weight (kg) 75.45 BMI 25.1 Weight Status Overweight Subjective/Other Information Screen for MST. Pt from NH and unable to comprehend, and noted with bilateral weak venture capital analyst strength. Burn Absent Trauma Absent GI Symptoms None Current % PO Negligible Minimum of two criteria Yes Energy Intake (severe) < or equal to 50% Estimated Energy Requirement > or equal to 5 days Reduced Chemical Compounder Strength Measurably Reduced (severe) #1 Nutrition Diagnosis Malnutrition Etiology advanced age/AMS As Evidenced by Signs and Symptoms Pt admitted with dehydration and weak venture capital analyst strength Is patient on ventilator? No Is Patient Ambulatory and/or Out of Bed No REE-([facility]-confined to bed) 1846.396 Calculation Used for Recommendations [facility] Additional Notes Protein needs are 95-119g (1.2 -1.5g/kg) Fluid needs are 1ml/kcal Nutrition Intervention Change Diet Order: Advance diet as feasible to Regular diet Nutrition Support: May need TF if AMS continues Goal #1 Advance diet as feasible Goal #2 Na WNL Anticipated Discharge Needs: Unable to determine at this time Follow-Up By: 11/06/19 Additional Comments Follow for diet advancement and intakes or need for nutrition support
[2019-11-05 10:31] LABS: Calcium 8.5 mg/dL (8.4-10.2)
--- NOTE | 2019-11-05 11:23 | Progress Note ---
Assessment and Plan Hypernatremia: Acute renal failure likely pre-renal: Dehydration: Altered Mental status: SIRS: History of dementia: -Adjust D5W to 75 cc/hr. -Na trending down. -Check BMP q4H -Target drop in Na <10 meq/24 hours to prevent Cerebral edema -Strict I/Os Sixto Caruso MD [phone] Subjective Date of service: 11/05/19 Interval history: Making urine. Objective - Exam Narrative Exam: - EENT Eyes: Present: PERRL, EOM intact ENT: hearing intact, clear oral mucosa, dentition normal - Neck Neck: Present: supple, normal ROM - Respiratory Respiratory effort: normal Respiratory: bilateral: CTA - Cardiovascular Rhythm: regular Heart Sounds: Present: S1 & S2. Absent: gallop, systolic murmur, diastolic murmur, rub - Extremities Extremities: no ischemia, pulses intact, pulses symmetrical, No edema, Full ROM - Abdominal General gastrointestinal: Present: soft, non-tender, non-distended, normal bowel sounds. Absent: mass - Integumentary Integumentary: Present: clear, warm, dry. Absent: rash - Musculoskeletal Musculoskeletal: strength equal bilaterally - Psychiatric Psychiatric: altered - Neurologic Neurologic: CNII-XII intact, moves all extremities - Vital Signs Vital signs: Vital Signs - 12hr 11/05/19 11/05/19 06:18 09:07 Temperature 99.0 F Pulse Rate 74 Respiratory 18 Rate Blood Pressure 131/64 O2 Sat by Pulse 99 97 Oximetry - Lab 11/05/19 07:08 11/05/19 14:41 Most recent lab results Calcium 8.5 mg/dL (8.4-10.2) 11/05/19 10:12 Medications & Allergies - Medications Allergies/Adverse Reactions: Allergies No Known Allergies Allergy (Unverified 01/31/16 13:51) Home Medications: Home Medications Medication Instructions Recorded Confirmed Last Taken Type Prednisone [predniSONE 10 mg 10 mg PO .TAPER #1 tab.ds.pk 02/02/16 11/04/19 Unknown Rx (6-Day Pack, 21 Tabs)] Amoxicillin/K Clav Tab [Augmentin 1 tab PO Q12HR #5 tab 02/03/16 11/04/19 Unknown Rx 875MG TAB] ALBUTEROL NEB's [Proventil 0.083% 2.5 mg IH Q3HRT PRN #30 nebu 02/04/16 11/04/19 Unknown Rx NEBS] Active Medications: Generic Name Dose Route Start Last Admin Trade Name Ericq PRN Reason Stop Dose Admin Acetaminophen 650 mg 11/04/19 00:25 11/04/19 17:55 Tylenol PO 650 mg Q4H PRN Administration Pain MILD(1-3)/Fever >100.5/VALENTIN Heparin Sodium (Porcine) 5,000 unit 11/04/19 06:00 11/05/19 05:03 Heparin SUB-Q 5,000 unit Q8HR GIDEON Administration Dextrose 1,000 mls @ 100 mls/hr 11/04/19 16:00 11/05/19 10:26 D5w IV 100 mls/hr DIRECT GIDEON Administration Dextrose 1,000 mls @ 50 mls/hr 11/05/19 12:00 D5w IV DIRECT GIDEON Ondansetron HCl 4 mg 11/04/19 00:25 Zofran IV Q8H PRN Nausea And Vomiting Sodium Chloride 10 ml 11/04/19 10:00 11/04/19 23:20 Sodium Chloride Flush Syringe 10 Ml IV Not Given BID GIDEON Sodium Chloride 10 ml 11/04/19 00:25 Sodium Chloride Flush Syringe 10 Ml IV PRN PRN LINE FLUSH
[2019-11-05] MEDS ORDERED: DEXTROSE 5% IN WATER 1,000 ML IV SCH ×2 (12:00→16:00)
[2019-11-05 15:07] LABS: Calcium 8.7 mg/dL (8.4-10.2)
[2019-11-05 19:32] LABS: Calcium 8.5 mg/dL (8.4-10.2)
[2019-11-06 00:33] LABS: Calcium 7.8 mg/dL (8.4-10.2)
[2019-11-06] MEDS: HEPARIN 5,000 UNIT/1 ML VIAL SUB-Q SCH ×3 (06:04→22:23)
[2019-11-06 07:44] LABS: Basophils % (Auto) 0.3 % (0.0-1.8); Eosinophils % (Auto) 0.1 % (0.0-4.3); Hematocrit 36.3 % (35.5-45.6); Hemoglobin 11.7 gm/dl (11.8-15.2); Lymphocytes % (Auto) 6.3 % (13.4-35.0); Mean Corpuscular HGB Conc 32 % (32-34); Mean Corpuscular Volume 92 fl (84-94); Monocytes # (Auto) 0.5 K/mm3 (0.0-0.8); Monocytes % (Auto) 3.6 % (0.0-7.3); Platelet Count 239 K/mm3 (140-440); Red Blood Count 3.94 M/mm3 (3.65-5.03); Red Cell Distribution Width 14.9 % (13.2-15.2)
[2019-11-06 08:04] LABS: Calcium 8.4 mg/dL (8.4-10.2)
[2019-11-06] MEDS: DEXTROSE 5% IN WATER 1,000 ML IV SCH (09:30)
--- NOTE | 2019-11-06 09:31 | Progress Note ---
Assessment and Plan Assessment and plan: Acute toxic metabolic encephalopathy. Patient with a sodium of 170 on admission and now 175. We will continue to treat hyponatremia as likely etiology. Severe hypernatremia. Nephrology consulted. Start hypotonic IV fluids with D5W at 75 cc an hour. Monitor serial CBC. SIRS. Patient meets criteria given the tachycardia, tachypnea and leukocytosis but no obvious signs of infection. Urinalysis and checks x-ray are negative. Follow-up blood cultures. Acute renal failure. Etiology secondary to acute kidney injury from vasomotor nephropathy/dehydration. Continue IV fluids and follow-up BMP. Hypokalemia. Replete potassium. 11/05/2019. Replete potassium. Hypernatremia has improved from 175> 171> 166. Continue to monitor BMP closely. Nephrology following. 11/06/2019. Hypernatremia continues to improve. Today sodium is 163. Continue hypotonic IV fluid of D5W. Continue to trend serial BMP. Nephrology following. Continue to monitor mental status. Patient was noted to have urinary retention yesterday likely secondary to BPH. Catheter placed. Start Flomax. Bladder tra ining per nursing. History Interval history: No new issues overnight. Patient remains confused. Hospitalist Physical - Constitutional Vitals: Temp Pulse Resp BP Pulse Ox 99.0 F 66 20 123/47 96 11/06/19 05:08 11/06/19 05:08 11/06/19 05:08 11/06/19 05:08 11/06/19 07:53 General appearance: Present: no acute distress, well-nourished - EENT Eyes: Present: PERRL, EOM intact ENT: hearing intact, clear oral mucosa, dentition normal - Neck Neck: Present: supple, normal ROM - Respiratory Respiratory effort: normal Respiratory: bilateral: CTA - Cardiovascular Rhythm: regular Heart Sounds: Present: S1 & S2. Absent: gallop, rub - Extremities Extremities: no ischemia, No edema, Full ROM - Abdominal General gastrointestinal: soft, non-tender, non-distended, normal bowel sounds - Integumentary Integumentary: Present: clear, warm, dry - Neurologic Neurologic: CNII-XII intact, moves all extremities HEART Score - HEART Score Troponin: Troponin T < 0.010 ng/mL (0.00-0.029) 11/03/19 18:20 Results - Labs CBC & Chem 7: 11/06/19 07:29 11/06/19 07:29 Labs: Laboratory Last Values WBC 15.2 K/mm3 (4.5-11.0) H 11/06/19 07:29 RBC 3.94 M/mm3 (3.65-5.03) 11/06/19 07:29 Hgb 11.7 gm/dl (11.8-15.2) L 11/06/19 07: Hct 36.3 % (35.5-45.6) 11/06/19 07: MCV 92 fl (84-94) 11/06/19 07: MCH 30 pg (28-32) 11/06/19 07: MCHC 32 % (32-34) 11/06/19 07: RDW 14.9 % (13.2-15.2) 11/06/19 07:29 Plt Count 239 K/mm3 (140-440) 11/06/19 07: Lymph % (Auto) 6.3 % (13.4-35.0) L 11/06/19 07: [place] % (Auto) 3.6 % (0.0-7.3) 11/06/19 07: Eos % (Auto) 0.1 % (0.0-4.3) 11/06/19 07: Baso % (Auto) 0.3 % (0.0-1.8) 11/06/19 07:29 Lymph # 1.0 K/mm3 (1.2-5.4) L 11/06/19 07: [place] # 0.5 K/mm3 (0.0-0.8) 11/06/19 07: Eos # 0.0 K/mm3 (0.0-0.4) 11/06/19 07: Baso # 0.0 K/mm3 (0.0-0.1) 11/06/19 07: Seg Neutrophils % 89.7 % (40.0-70.0) H 11/06/19 07:29 Seg Neutrophils # 13.7 K/mm3 (1.8-7.7) H 11/06/19 07:29 PT 16.1 Sec. (12.2-14.9) H 11/05/19 07:08 INR 1.26 (0.87-1.13) H 11/05/19 07:08 APTT 26.2 Sec. (24.2-36.6) 11/03/19 16:24 Sodium 163 mmol/L (137-145) H* D 11/06/19 07:29 Potassium 3.5 mmol/L (3.6-5.0) L 11/06/19 07:29 Chloride 130.6 mmol/L (98-107) H 11/06/19 07:29 Carbon Dioxide 21 mmol/L (22-30) L 11/06/19 07:29 Anion Gap 15 mmol/L 11/06/19 07:29 BUN 35 mg/dL (9-20) H 11/06/19 07:29 Creatinine 1.3 mg/dL (0.8-1.3) 11/06/19 07:29 Estimated GFR 54 ml/min 11/06/19 07:29 BUN/Creatinine Ratio 27 % 11/06/19 07:29 Glucose 135 mg/dL (75-100) H 11/06/19 07:29 Lactic Acid 1.70 mmol/L (0.7-2.0) 11/03/19 18:20 Calcium 8.4 mg/dL (8.4-10.2) 11/06/19 07:29 Total Bilirubin 0.50 mg/dL (0.1-1.2) 11/03/19 16:24 AST 57 units/L (5-40) H 11/03/19 16:24 ALT 27 units/L (7-56) 11/03/19 16:24 Alkaline Phosphatase 79 units/L (35-129) 11/03/19 16:24 Troponin T < 0.010 ng/mL (0.00-0.029) 11/03/19 18:20 NT-Pro-B Natriuret Pep 1532 pg/mL (0-900) H 11/03/19 16:24 Total Protein 7.6 g/dL (6.3-8.2) 11/03/19 16:24 Albumin 2.5 g/dL (3.9-5) L 11/03/19 16:24 Albumin/Globulin Ratio 0.5 % 11/03/19 16:24 Lipase 36 units/L (13-60) 11/03/19 16:24 Urine Color Yellow (Yellow) 11/03/19 16:29 Urine Turbidity Slightly-cloudy (Clear) 11/03/19 16:29 Urine pH 5.0 (5.0-7.0) 11/03/19 16:29 Ur Specific [place] 1.019 (1.003-1.030) 11/03/19 16:29 Urine Protein 30 mg/dl mg/dL (Negative) 11/03/19 16:29 Urine Glucose (UA) Neg mg/dL (Negative) 11/03/19 16:29 Urine Ketones Neg mg/dL (Negative) 11/03/19 16:29 Urine Blood Mod (Negative) 11/03/19 16:29 Urine Nitrite Neg (Negative) 11/03/19 16:29 Urine Bilirubin Neg (Negative) 11/03/19 16:29 Urine Urobilinogen < 2.0 mg/dL (<2.0) 11/03/19 16:29 Ur Leukocyte Esterase Neg (Negative) 11/03/19 16:29 Urine WBC (Auto) 2.0 /HPF (0.0-6.0) 11/03/19 16:29 Urine RBC (Auto) 2.0 /HPF (0.0-6.0) 11/03/19 16:29 U Epithel Cells (Auto) < 1.0 /HPF (0-13.0) 11/03/19 16:29 Urine Mucus Few /HPF 11/03/19 16:29 Urine Yeast (Budding) Few /HPF 11/03/19 16:29 Urine Opiates Screen Presumptive negative 11/03/19 16:29 Urine Methadone Screen Presumptive negative 11/03/19 16:29 Ur Barbiturates Screen Presumptive negative 11/03/19 16:29 Ur Phencyclidine Scrn Presumptive negative 11/03/19 16:29 Ur Amphetamines Screen Presumptive negative 11/03/19 16:29 U Benzodiazepines Scrn Presumptive negative 11/03/19 16:29 Urine Cocaine Screen Presumptive negative 11/03/19 16:29 U Marijuana (THC) Screen Presumptive negative 11/03/19 16:29 Drugs of Abuse Note Disclamer 11/03/19 16:29 Coronavirus (PCR) Negative (Negative) 11/04/19 09:56 Microbiology: Microbiology 11/03/19 16:24 Peripheral/Venous Blood Culture - Preliminary NO GROWTH AFTER 48 HOURS 11/03/19 16:24 Peripheral/Venous Blood Culture - Preliminary NO GROWTH AFTER 48 HOURS Alcazar/IV: Voiding Method Indwelling Catheter IV Catheter Type [Left Forearm INT / Saline Lock ] Active Medications - Current Medications Current Medications: Generic Name Dose Route Start Last Admin Trade Name Freq PRN Reason Stop Dose Admin Acetaminophen 650 mg 11/04/19 00:25 11/04/19 17:55 Tylenol PO 650 mg Q4H PRN Administration Pain MILD(1-3)/Fever >100.5/VALENTIN Heparin Sodium (Porcine) 5,000 unit 11/04/19 06:00 11/06/19 06:04 Heparin SUB-Q 5,000 unit Q8HR GIDEON Administration Dextrose 1,000 mls @ 75 mls/hr 11/06/19 10:00 D5w IV DIRECT GIDEON Ondansetron HCl 4 mg 11/04/19 00:25 Zofran IV Q8H PRN Nausea And Vomiting Sodium Chloride 10 ml 11/04/19 10:00 11/05/19 23:10 Sodium Chloride Flush Syringe 10 Ml IV Not Given BID GIDEON Sodium Chloride 10 ml 11/04/19 00:25 Sodium Chloride Flush Syringe 10 Ml IV PRN PRN LINE FLUSH Nutrition/Malnutrition Assess - Dietary Evaluation Nutrition/Malnutrition Findings: Nutrition Notes Start: 11/04/19 09:16 Freq: Status: Active Protocol: Document 11/04/19 09:16 LP (Rec: 11/04/19 09:22 LP [id number]) Nutrition Notes Need for Assessment generated from: phlebotomist medical lab assistant Initial or Follow up Assessment Other Pertinent Diagnosis Dehydration, AMS, SIRS Current Diet NPO Labs/Tests Na 175 K 3.2 BUN 50 BG 102 Pertinent Medications NS at 125ml/h Height 5 ft 10 in Weight 79.379 kg [place] Body Weight (kg) 75.45 BMI 25.1 Weight Status Overweight Subjective/Other Information Screen for MST. Pt from NH and unable to comprehend, and noted with bilateral weak benchroom shop optician strength. Burn Absent Trauma Absent GI Symptoms None Current % PO Negligible Minimum of two criteria Yes Energy Intake (severe) < or equal to 50% Estimated Energy Requirement > or equal to 5 days Reduced Junior Marketing Associate Strength Measurably Reduced (severe) #1 Nutrition Diagnosis Malnutrition Etiology advanced age/AMS As Evidenced by Signs and Symptoms Pt admitted with dehydration and weak benchroom shop optician strength Is patient on ventilator? No Is Patient Ambulatory and/or Out of Bed No REE-([place]-confined to bed) [phone] Calculation Used for Recommendations [facility] Additional Notes Protein needs are 95-119g (1.2 -1.5g/kg) Fluid needs are 1ml/kcal Nutrition Intervention Change Diet Order: Advance diet as feasible to Regular diet Nutrition Support: May need TF if AMS continues Goal #1 Advance diet as feasible Goal #2 Na WNL Anticipated Discharge Needs: Unable to determine at this time Follow-Up By: 11/06/19 Additional Comments Follow for diet advancement and intakes or need for nutrition support
[2019-11-06] MEDS: TAMSULOSIN 0.4 MG CAP PO SCH (10:00)
[2019-11-06 13:51] LABS: Calcium 8.4 mg/dL (8.4-10.2)
--- NOTE | 2019-11-06 15:09 | Progress Note ---
Assessment and Plan Assessment: Hypernatremia: Acute renal failure likely pre-renal: Dehydration: Altered Mental status: SIRS: History of dementia: Plan: -Recent sodium levels today is 160, prior was 162 -Target drop in Na <10 meq/24 hours to prevent Cerebral edema -On D5W to 75 ml/hr -Sodium trending down -Check BMP every 4 hours -Hypokalemia- KCl 20 meq IV X 1 -Strict I/Os monitoring Subjective Date of service: 11/06/19 Principal diagnosis: Acute toxic metabolic encephalopathy Interval history: Patient seen lying in bed. Awake. [place] head. Objective - Vital Signs Vital signs: Vital Signs - 12hr 11/06/19 11/06/19 05:08 07:53 Temperature 99.0 F Pulse Rate 66 Respiratory 20 Rate Blood Pressure 123/47 O2 Sat by Pulse 95 96 Oximetry - General Appearance General appearance: chronically ill, fatigue, other (No acute distress) EENT: ATNC, PERRL Neck: no JVD, supple Respiratory: Present: Decreased Breath Sounds Cardiology: S1S2 Gastrointestinal: normoactive bowel sounds Integumentary: warm and dry Neurologic: other (Awake, knods head) Musculoskeletal: decreased ROM, other (No edema) - Lab 11/06/19 07:29 11/06/19 13:07 Most recent lab results Calcium 8.4 mg/dL (8.4-10.2) 11/06/19 13:07 Medications & Allergies - Medications Allergies/Adverse Reactions: Allergies No Known Allergies Allergy (Unverified 01/31/16 13:51) Home Medications: Home Medications Medication Instructions Recorded Confirmed Last Taken Type Prednisone [predniSONE 10 mg 10 mg PO .TAPER #1 tab.ds.pk 02/02/16 11/04/19 Unknown Rx (6-Day Pack, 21 Tabs)] Amoxicillin/K Clav Tab [Augmentin 1 tab PO Q12HR #5 tab 02/03/16 11/04/19 Unknown Rx 875MG TAB] ALBUTEROL NEB's [Proventil 0.083% 2.5 mg IH Q3HRT PRN #30 nebu 02/04/16 11/04/19 Unknown Rx NEBS] Active Medications: Generic Name Dose Route Start Last Admin Trade Name Freq PRN Reason Stop Dose Admin Acetaminophen 650 mg 11/04/19 00:25 11/04/19 17:55 Tylenol PO 650 mg Q4H PRN Administration Pain MILD(1-3)/Fever >100.5/VALENTIN Heparin Sodium (Porcine) 5,000 unit 11/04/19 06:00 11/06/19 06:04 Heparin SUB-Q 5,000 unit Q8HR GIDEON Administration Dextrose 1,000 mls @ 75 mls/hr 11/06/19 10:00 11/06/19 09:30 D5w IV 75 mls/hr DIRECT GIDEON Administration Ondansetron HCl 4 mg 11/04/19 00:25 Zofran IV Q8H PRN Nausea And Vomiting Sodium Chloride 10 ml 11/04/19 10:00 11/06/19 09:31 Sodium Chloride Flush Syringe 10 Ml IV 10 ml BID GIDEON Administration Sodium Chloride 10 ml 11/04/19 00:25 Sodium Chloride Flush Syringe 10 Ml IV PRN PRN LINE FLUSH Tamsulosin HCl 0.4 mg 11/06/19 10:00 Flomax PO QDAY GIDEON
[2019-11-06 16:06] LABS: Calcium 8.3 mg/dL (8.4-10.2)
[2019-11-06] MEDS: POTASSIUM CHLORIDE 10 MEQ 10 MEQ/100 ML BAG IV SCH ×2 (16:39→17:30)
[2019-11-06 23:34] LABS: BUN/Creatinine Ratio 27; Blood Urea Nitrogen 30 mg/dL (9-20); Hemolysis Index 5
[2019-11-07] MEDS: DEXTROSE 5% IN WATER 1,000 ML IV SCH ×2 (01:58→22:43)
[2019-11-07] MEDS: HEPARIN 5,000 UNIT/1 ML VIAL SUB-Q SCH ×3 (06:14→22:43)
[2019-11-07 06:25] LABS: Basophils % (Auto) 0.2 % (0.0-1.8); Eosinophils % (Auto) 0.1 % (0.0-4.3); Hematocrit 34.9 % (35.5-45.6); Hemoglobin 11.8 gm/dl (11.8-15.2); Lymphocytes # (Auto) 0.9 K/mm3 (1.2-5.4); Mean Corpuscular HGB Conc 34 % (32-34); Mean Corpuscular Volume 91 fl (84-94); Monocytes # (Auto) 0.5 K/mm3 (0.0-0.8); Monocytes % (Auto) 3.8 % (0.0-7.3); Platelet Count 211 K/mm3 (140-440); Red Blood Count 3.82 M/mm3 (3.65-5.03); Red Cell Distribution Width 14.8 % (13.2-15.2)
[2019-11-07 06:43] LABS: BUN/Creatinine Ratio 26; Blood Urea Nitrogen 29 mg/dL (9-20); Calcium 8.2 mg/dL (8.4-10.2); Hemolysis Index 4
[2019-11-07 07:24] LABS: Bilirubin,Urine NEG (Negative); Blood,Urine MOD (Negative); Color,Urine Amber (Yellow); Mucus,Urine 3+ /HPF
--- NOTE | 2019-11-07 08:05 | Progress Note ---
Assessment and Plan Assessment and plan: Acute toxic metabolic encephalopathy. Patient with a sodium of 170 on admission and now 156. We will continue to treat hyponatremia as likely etiology. Severe hypernatremia. Nephrology consulted. Start hypotonic IV fluids with D5W at 75 cc an hour. Monitor serial CBC. SIRS. Patient meets criteria given the tachycardia, tachypnea and leukocytosis but no obvious signs of infection. Urinalysis and checks x-ray are negative. Blood cultures are negative. Acute renal failure. Etiology secondary to acute kidney injury from vasomotor nephropathy/dehydration. Continue IV fluids and follow-up BMP. Improving Hypokalemia. Replete potassium. 11/05/2019. Replete potassium. Hyponatremia has improved from 175> 171> 166--->156. Continue to monitor BMP closely. Nephrology following. 11/07/19; Patient was agitated and non verbal. Patient failed swallow evaluation and I order NG tube insertion and dietary consult. Increase free water. Patient was seen by psychiatry and pending recommendation. Disposition; per clinical course. Patient came from SNF but will discharge him back once he is stable and off NG tube feeding. History Interval history: Patient was agitated and didn't talk to me Hospitalist Physical - Physical exam Narrative exam: Not in cardiopulmonary distress. The patient appeared well nourished and normally developed. Vital signs as documented. Head exam is unremarkable. No scleral icterus . Neck is without jugular venous distension, thyromegaly, or carotid bruits. Lungs are clear to auscultation. Cardiac exam reveals regular rate and Rhythm. Abdominal exam reveals normal bowel sounds, nontender, no organomegaly. Extremities are nonedematous and both femoral and pedal pulses are normal. 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 - Constitutional Vitals: Temp Pulse Resp BP Pulse Ox 98.2 F 68 22 113/62 95 11/07/19 05:47 11/07/19 07:00 11/07/19 05:47 11/07/19 05:47 11/07/19 05:47 General appearance: Present: no acute distress, well-nourished HEART Score - HEART Score Troponin: Troponin T < 0.010 ng/mL (0.00-0.029) 11/03/19 18:20 Results - Labs CBC & Chem 7: 11/07/19 05:00 11/07/19 05:00 Labs: Laboratory Last Values WBC 13.1 K/mm3 (4.5-11.0) H 11/07/19 05:00 RBC 3.82 M/mm3 (3.65-5.03) 11/07/19 05:00 Hgb 11.8 gm/dl (11.8-15.2) 11/07/19 05:00 Hct 34.9 % (35.5-45.6) L 11/07/19 05:00 MCV 91 fl (84-94) 11/07/19 05:00 MCH 31 pg (28-32) 11/07/19 05:00 MCHC 34 % (32-34) 11/07/19 05:00 RDW 14.8 % (13.2-15.2) 11/07/19 05:00 Plt Count 211 K/mm3 (140-440) 11/07/19 05:00 Lymph % (Auto) 7.0 % (13.4-35.0) L 11/07/19 05:00 [place] % (Auto) 3.8 % (0.0-7.3) 11/07/19 05:00 Eos % (Auto) 0.1 % (0.0-4.3) 11/07/19 05:00 Baso % (Auto) 0.2 % (0.0-1.8) 11/07/19 05:00 Lymph # 0.9 K/mm3 (1.2-5.4) L 11/07/19 05:00 [place] # 0.5 K/mm3 (0.0-0.8) 11/07/19 05:00 Eos # 0.0 K/mm3 (0.0-0.4) 11/07/19 05:00 Baso # 0.0 K/mm3 (0.0-0.1) 11/07/19 05:00 Seg Neutrophils % 88.9 % (40.0-70.0) H 11/07/19 05:00 Seg Neutrophils # 11.7 K/mm3 (1.8-7.7) H 11/07/19 05:00 PT 16.1 Sec. (12.2-14.9) H 11/05/19 07:08 INR 1.26 (0.87-1.13) H 11/05/19 07:08 APTT 26.2 Sec. (24.2-36.6) 11/03/19 16:24 Sodium 156 mmol/L (137-145) H 11/07/19 05:00 Potassium 3.5 mmol/L (3.6-5.0) L 11/07/19 05:00 Chloride 124.7 mmol/L (98-107) H 11/07/19 05:00 Carbon Dioxide 19 mmol/L (22-30) L 11/07/19 05:00 Anion Gap 16 mmol/L 11/07/19 05:00 BUN 29 mg/dL (9-20) H 11/07/19 05:00 Creatinine 1.1 mg/dL (0.8-1.3) 11/07/19 05:00 Estimated GFR > 60 ml/min 11/07/19 05:00 BUN/Creatinine Ratio 26 % 11/07/19 05:00 Glucose 113 mg/dL (75-100) H 11/07/19 05:00 Lactic Acid 1.70 mmol/L (0.7-2.0) 11/03/19 18:20 Calcium 8.2 mg/dL (8.4-10.2) L 11/07/19 05:00 Total Bilirubin 0.50 mg/dL (0.1-1.2) 11/03/19 16:24 AST 57 units/L (5-40) H 11/03/19 16:24 ALT 27 units/L (7-56) 11/03/19 16:24 Alkaline Phosphatase 79 units/L (35-129) 11/03/19 16:24 Troponin T < 0.010 ng/mL (0.00-0.029) 11/03/19 18:20 NT-Pro-B Natriuret Pep 1532 pg/mL (0-900) H 11/03/19 16:24 Total Protein 7.6 g/dL (6.3-8.2) 11/03/19 16:24 Albumin 2.5 g/dL (3.9-5) L 11/03/19 16:24 Albumin/Globulin Ratio 0.5 % 11/03/19 16:24 Lipase 36 units/L (13-60) 11/03/19 16:24 Urine Color [place] (Yellow) 11/07/19 06:55 Urine Turbidity Turbid (Clear) 11/07/19 06:55 Urine pH 5.0 (5.0-7.0) 11/07/19 06:55 Ur Specific [place] 1.016 (1.003-1.030) 11/07/19 06:55 Urine Protein 30 mg/dl mg/dL (Negative) 11/07/19 06:55 Urine Glucose (UA) Neg mg/dL (Negative) 11/07/19 06:55 Urine Ketones Neg mg/dL (Negative) 11/07/19 06:55 Urine Blood Mod (Negative) 11/07/19 06:55 Urine Nitrite Neg (Negative) 11/07/19 06:55 Urine Bilirubin Neg (Negative) 11/07/19 06:55 Urine Urobilinogen 4.0 mg/dL (<2.0) 11/07/19 06:55 Ur Leukocyte Esterase Mod (Negative) 11/07/19 06:55 Urine WBC (Auto) 27.0 /HPF (0.0-6.0) H 11/07/19 06:55 Urine RBC (Auto) 12.0 /HPF (0.0-6.0) 11/07/19 06:55 U Epithel Cells (Auto) < 1.0 /HPF (0-13.0) 11/07/19 06:55 Urine Yeast (Budding) Few /HPF 11/03/19 16:29 Uric Acid Crystals 1+ 11/07/19 06:55 Urine Mucus 3+ /HPF 11/07/19 06:55 Urine Opiates Screen Presumptive negative 11/03/19 16:29 Urine Methadone Screen Presumptive negative 11/03/19 16:29 Ur Barbiturates Screen Presumptive negative 11/03/19 16:29 Ur Phencyclidine Scrn Presumptive negative 11/03/19 16:29 Ur Amphetamines Screen Presumptive negative 11/03/19 16:29 U Benzodiazepines Scrn Presumptive negative 11/03/19 16:29 Urine Cocaine Screen Presumptive negative 11/03/19 16:29 U Marijuana (THC) Screen Presumptive negative 11/03/19 16:29 Drugs of Abuse Note Disclamer 11/03/19 16:29 Coronavirus (PCR) Negative (Negative) 11/04/19 09:56 Microbiology: Microbiology 11/03/19 16:24 Peripheral/Venous Blood Culture - Preliminary NO GROWTH AFTER 72 HOURS 09/18/20 16:24 Peripheral/Venous Blood Culture - Preliminary NO GROWTH AFTER 72 HOURS Alcazar/IV: Voiding Method Indwelling Catheter IV Catheter Type [Left Forearm INT / Saline Lock ] Active Medications - Current Medications Current Medications: Generic Name Dose Route Start Last Admin Trade Name Freq PRN Reason Stop Dose Admin Acetaminophen 650 mg 11/04/19 00:25 11/04/19 17:55 Tylenol PO 650 mg Q4H PRN Administration Pain MILD(1-3)/Fever >100.5/VALENTIN Heparin Sodium (Porcine) 5,000 unit 11/04/19 06:00 11/07/19 06:14 Heparin SUB-Q 5,000 unit Q8HR GIDEON Administration Dextrose 1,000 mls @ 75 mls/hr 11/06/19 10:00 11/07/19 01:58 D5w IV 75 mls/hr DIRECT GIDEON Administration Ondansetron HCl 4 mg 11/04/19 00:25 Zofran IV Q8H PRN Nausea And Vomiting Sodium Chloride 10 ml 11/04/19 10:00 11/06/19 22:24 Sodium Chloride Flush Syringe 10 Ml IV 10 ml BID GIDEON Administration Sodium Chloride 10 ml 11/04/19 00:25 Sodium Chloride Flush Syringe 10 Ml IV PRN PRN LINE FLUSH Tamsulosin HCl 0.4 mg 11/06/19 10:00 11/06/19 10:00 Flomax PO Not Given QDAY GIDEON Nutrition/Malnutrition Assess - Dietary Evaluation Nutrition/Malnutrition Findings: Nutrition Notes Start: 11/04/19 09:16 Freq: Status: Active Protocol: Document 11/06/19 15:22 (Rec: 11/06/19 15:25 [id number]) Co-Sign 11/06/19 15:22 LP Nutrition Notes Initial or Follow up Brief Note Other Pertinent Diagnosis Dehydration, AMS, SIRS Current Diet NPO Subjective/Other Information FU for intakes. Speech recommends NPO at this time due to swallowing difficulty. Nutrition Intervention Anticipated Discharge Needs: Unable to determine at this time Follow-Up By: 11/07/19 Additional Comments FU for diet advancement or need for TF
[2019-11-07] MEDS: TAMSULOSIN 0.4 MG CAP PO SCH (10:00)
[2019-11-07] MEDS ORDERED: LIPASE 10,500/PROTEASE 25,000/AMYLASE 43,750 (UNITS) DR CAP FEEDTUBE PRN (11:03)
[2019-11-07] MEDS ORDERED: SODIUM BICARBONATE 325 MG TAB FEEDTUBE PRN (11:03)
[2019-11-07] MEDS ORDERED: SIMPLE SYRUP 15 ML FEEDTUBE PRN ×2 (11:03)
--- NOTE | 2019-11-07 11:11 | Consultation ---
History of Present Illness - Reason for Consult Consult date: 11/07/19 Reason for consult: MHE Requesting physician: PRIETO MAN - Chief Complaint Chief complaint: Altered mental status - History of Present Psychiatric Illness Per ED Provider: The patient [facility] for altered mental status and concern for systemic infection. Due to the patient's mental status is not able to add to the history and physical. PSYCH HPI This is a 78 year old male with past medical history of dementia admitted for AMS from [facility] per records. Patient seen in room in bed, no restraints and no sitter and on oxygen. Patient appears calm and somnolent, Answers to his own name very slowly, and speaks sofetly with prolong hesitation but says he is ok, knows the year unable to recollect the month and admits to not knowing the month. Patient stared at me and unable to answer follow up questions but alert and awake. PAST PSYCHIATRIC HISTORY Diagnoses: n/a Suicide attempts or Self-harm behavior: n/a Prior psychiatric hospitalizations: n/a Substance Abuse history: n/a Previous psychiatric medications tried: n/a Outpatient treatment: n/a PAST MEDICAL HISTORY: Family Psychiatric History: None reported or documented SOCIAL HISTORY Marital Status: n/a Living Arrangements:n/a Employment Status: n/a Access to guns/weapons: n/a Education: n/a History of Abuse: n/a Legal History: n/a REVIEW OF SYSTEMS ROS cannot be reliably obtained from the patient due to patient not responding to questions MENTAL STATUS EXAMINATION General Appearance and Behavior: Age appropriate, fair hygiene, wearing appropriate clothes, lying in bed, good eye contact Psychomotor Behavior:psychomotor retardation Mood: "Im ok" Affect and affective range: flat Thought Process:Logical Thought Content: Poverty Speech:soft volume, paucity of speech, Intellectual Functioning: Fair Suicidal Ideation: unknown Homicidal Ideation: unknown Impulse Control: n/a Insight and Judgment: Impaired Memory: Normal, impaired Attention: Normal Orientation: Alert Assessment and Plan - Psychiatric problem (1) History of dementia Current Visit: Yes Status: Acute (2) Acute metabolic encephalopathy Current Visit: Yes Status: Acute Treatment Plan No psych intervention/benefit indicated at this time, reviewed labs, acute metabolic encephalopathy, pt appears somewhat somnolent, slow in response, minimally verbal and not displaying endangering behavior. MEDICATIONS: Risks, benefits and alternatives of medications discussed with the patient, questions answered and consent obtained from patient. PSYCHOTHERAPY: Supportive psychotherapy provided MEDICAL: Per primary team DELIRIUM PRECAUTIONS: Please re-orient patient frequently, keep lights on during the day, and minimize benzodiazepines and opiates as these medications could worsen patient's confusion. CABIN AGENT: Per medical team DISPOSITION: Do not Recommend acute inpatient psychiatric hospitalization at this time. LEGAL STATUS: Voluntary FOLLOW-UP: Will sign off Thank you for the consult. Please contact with any questions and/or concerns. Medications and Allergies Allergies Allergy/AdvReac Type Severity Reaction Status Date / Time No Known Allergies Allergy Unverified 01/31/16 13:51 Home Medications Medication Instructions Recorded Confirmed Last Taken Type Prednisone [predniSONE 10 mg 10 mg PO .TAPER #1 tab.ds.pk 02/02/16 11/04/19 Unknown Rx (6-Day Pack, 21 Tabs)] Amoxicillin/K Clav Tab [Augmentin 1 tab PO Q12HR #5 tab 02/03/16 11/04/19 Un known Rx 875MG TAB] ALBUTEROL NEB's [Proventil 0.083% 2.5 mg IH Q3HRT PRN #30 nebu 02/04/16 11/04/19 Unknown Rx NEBS] Active Meds: Active Medications Acetaminophen (Tylenol) 650 mg PO Q4H PRN PRN Reason: Pain MILD(1-3)/Fever >100.5/VALENTIN Last Admin: 11/04/19 17:55 Dose: 650 mg Documented by: Lipase/Protease/Amylase (Pancreaze Dr 10,500 Unit) 1 each FEEDTUBE PRN PRN PRN Reason: For Clogged Feeding Tube Heparin Sodium (Porcine) (Heparin) 5,000 unit SUB-Q Q8HR GIDEON Last Admin: 11/07/19 06:14 Dose: 5,000 unit Documented by: Dextrose (D5w) 1,000 mls @ 75 mls/hr IV DIRECT GIDEON Last Admin: 11/07/19 01:58 Dose: 75 mls/hr Documented by: Ondansetron HCl (Zofran) 4 mg IV Q8H PRN PRN Reason: Nausea And Vomiting Simple Syrup (Simple Syrup) 15 ml FEEDTUBE PRN PRN PRN Reason: Hypoglycemia Simple Syrup (Simple Syrup) 30 ml FEEDTUBE PRN PRN PRN Reason: Hypoglycemia Sodium Bicarbonate (Sodium Bicarbonate) 325 mg FEEDTUBE PRN PRN PRN Reason: For Clogged Feeding Tube Sodium Chloride (Sodium Chloride Flush Syringe 10 Ml) 10 ml IV BID [facility] Last Admin: 11/06/19 22:24 Dose: 10 ml Documented by: Sodium Chloride (Sodium Chloride Flush Syringe 10 Ml) 10 ml IV PRN PRN PRN Reason: LINE FLUSH Tamsulosin HCl (Flomax) 0.4 mg PO QDAY [facility] Last Admin: 11/06/19 10:00 Dose: Not Given Documented by: Mental Status Exam - Vital signs Last Vital Signs Temp 98.2 F 11/07/19 05:47 Pulse 68 11/07/19 07:00 Resp 22 11/07/19 05:47 BP 113/62 11/07/19 05:47 Pulse Ox 95 11/07/19 08:48 Results Result Diagrams: 11/07/19 05:00 11/07/19 05:00 Abnormal lab results 11/06/19 11/06/19 11/06/19 Range/Units 13:07 15:29 22:34 WBC (4.5-11.0) K/mm3 Hct (35.5-45.6) % Lymph % (Auto) (13.4-35.0) % Lymph # (1.2-5.4) K/mm3 Seg Neutrophils % (40.0-70.0) % Seg Neutrophils # (1.8-7.7) K/mm3 Sodium 160 H 161 H* 159 H (137-145) mmol/L Potassium 3.3 L 3.4 L 3.4 L (3.6-5.0) mmol/L Chloride 127.8 H 128.2 H 130.8 H (98-107) mmol/L Carbon Dioxide 20 L 19 L 17 L (22-30) mmol/L BUN 33 H 31 H 30 H (9-20) mg/dL Glucose 118 H 128 H 123 H (75-100) mg/dL Calcium 8.3 L 8.0 L (8.4-10.2) mg/dL Urine WBC (Auto) (0.0-6.0) /HPF 11/07/19 11/07/19 11/07/19 Range/Units 05:00 05:00 06:55 WBC 13.1 H (4.5-11.0) K/mm3 Hct 34.9 L (35.5-45.6) % Lymph % (Auto) 7.0 L (13.4-35.0) % Lymph # 0.9 L (1.2-5.4) K/mm3 Seg Neutrophils % 88.9 H (40.0-70.0) % Seg Neutrophils # 11.7 H (1.8-7.7) K/mm3 Sodium 156 H (137-145) mmol/L Potassium 3.5 L (3.6-5.0) mmol/L Chloride 124.7 H (98-107) mmol/L Carbon Dioxide 19 L (22-30) mmol/L BUN 29 H (9-20) mg/dL Glucose 113 H (75-100) mg/dL Calcium 8.2 L (8.4-10.2) mg/dL Urine WBC (Auto) 27.0 H (0.0-6.0) /HPF All other labs normal. Assessment and Plan - Psychiatric problem (1) History of dementia Current Visit: Yes Status: Acute (2) Acute metabolic encephalopathy Current Visit: Yes Status: Acute
--- NOTE | 2019-11-07 14:47 | Progress Note ---
Assessment and Plan Hypernatremia: Acute renal failure likely pre-renal: Dehydration: Altered Mental status: SIRS: History of dementia: Plan: -Na is trending down -Target drop in Na <10 meq/24 hours to prevent Cerebral edema -increase D5W to 100 ml/hr -Sodium trending down -Strict I/Os monitoring Casper Perdomo MD [phone] Subjective Date of service: 11/07/19 Principal diagnosis: Acute toxic metabolic encephalopathy Interval history: follows simple commands, no family at bedside Objective - Vital Signs Vital signs: Vital Signs - 12hr 11/07/19 11/07/19 11/07/19 05:47 07:00 08:48 Temperature 98.2 F Pulse Rate 68 68 Respiratory 22 Rate Blood Pressure 113/62 O2 Sat by Pulse 95 95 Oximetry 11/07/19 12:00 Temperature 98.2 F Pulse Rate 68 Respiratory 22 Rate Blood Pressure 100/67 O2 Sat by Pulse 94 Oximetry - General Appearance General appearance: well-developed, well-nourished EENT: ATNC, PERRL, mucous membranes dry Neck: no JVD, no carotid bruit Respiratory: Present: Clear to Ascultation. Absent: Rales, Ronchi Cardiology: regular, S1S2 Gastrointestinal: normoactive bowel sounds, no tenderness, no distended Integumentary: no rash, warm and dry Neurologic: no focal deficit, no asterixis Musculoskeletal: other (no edema in BLE) Psychiatric: cooperative - Lab 11/07/19 05:00 11/07/19 05:00 Most recent lab results Calcium 8.2 mg/dL (8.4-10.2) L 11/07/19 05:00 Medications & Allergies - Medications Allergies/Adverse Reactions: Allergies No Known Allergies Allergy (Unverified 01/31/16 13:51) Home Medications: Home Medications Medication Instructions Recorded Confirmed Last Taken Type Prednisone [predniSONE 10 mg 10 mg PO .TAPER #1 tab.ds.pk 02/02/16 11/04/19 Unknown Rx (6-Day Pack, 21 Tabs)] Amoxicillin/K Clav Tab [Augmentin 1 tab PO Q12HR #5 tab 02/03/16 11/04/19 Unknown Rx 875MG TAB] ALBUTEROL NEB's [Proventil 0.083% 2.5 mg IH Q3HRT PRN #30 nebu 02/04/16 11/04/19 Unknown Rx NEBS] Active Medications: Generic Name Dose Route Start Last Admin Trade Name Freq PRN Reason Stop Dose Admin Acetaminophen 650 mg 11/04/19 00:25 11/04/19 17:55 Tylenol PO 650 mg Q4H PRN Administration Pain MILD(1-3)/Fever >100.5/VALENTIN Lipase/Protease/Amylase 1 each 11/07/19 11:03 Pancreazitz Panda 10,500 Unit FEEDTUBE PRN PRN For Clogged Feeding Tube Heparin Sodium (Porcine) 5,000 unit 11/04/19 06:00 11/07/19 13:56 Heparin SUB-Q 5,000 unit Q8HR GIDEON Administration Dextrose 1,000 mls @ 100 mls/hr 11/06/19 10:00 11/07/19 01:58 D5w IV 75 mls/hr DIRECT GIDEON Administration Ondansetron HCl 4 mg 11/04/19 00:25 Zofran IV Q8H PRN Nausea And Vomiting Simple Syrup 15 ml 11/07/19 11:03 Simple Syrup FEEDTUBE PRN PRN Hypoglycemia Simple Syrup 30 ml 11/07/19 11:03 Simple Syrup FEEDTUBE PRN PRN Hypoglycemia Sodium Bicarbonate 325 mg 11/07/19 11:03 Sodium Bicarbonate FEEDTUBE PRN PRN For Clogged Feeding Tube Sodium Chloride 10 ml 11/04/19 10:00 11/07/19 10:00 Sodium Chloride Flush Syringe 10 Ml IV 10 ml BID GIDEON Administration Sodium Chloride 10 ml 11/04/19 00:25 Sodium Chloride Flush Syringe 10 Ml IV PRN PRN LINE FLUSH Tamsulosin HCl 0.4 mg 11/06/19 10:00 11/07/19 10:00 Flomax PO 0.4 mg QDAY GIDEON Administration
[2019-11-07 15:56] LABS: BUN/Creatinine Ratio 28; Blood Urea Nitrogen 28 mg/dL (9-20); Calcium 8.4 mg/dL (8.4-10.2); Hemolysis Index 9
--- NOTE | 2019-11-07 16:26 | XRay Report ---
ABDOMEN 1 VIEW(S) INDICATION / CLINICAL INFORMATION: Feeding tube placement. COMPARISON: None available. FINDINGS: TUBES / LINES: The tip of the feeding tube projects over the right lower lung. BOWEL GAS PATTERN/EXTRALUMINAL GAS: No significant abnormality. No pneumatosis or secondary signs of free air. ADDITIONAL FINDINGS: No significant additional findings. IMPRESSION: 1. Feeding tube tip projects over the right lower lung and is likely in the right main bronchus. Repo sitioning is reportedly being performed. Signer Name: Robert Miranda MD Signed: 11/07/2019 4:21 PM Workstation Name: [id number]
--- NOTE | 2019-11-07 16:29 | XRay Report ---
ABDOMEN 1 VIEW INDICATION / CLINICAL INFORMATION: FoR dobhoff placement. COMPARISON: 11/07/2019. FINDINGS: TUBES / LINES: There is been interval replacement of the Dobbhoff tube now with its tip projected ove r the gastric lumen. BOWEL GAS PATTERN: No significant abnormality. FREE AIR / EXTRALUMINAL GAS: None seen. ADDITIONAL FINDINGS: Previously noted pulmonary findings are stable since prior exam. IMPRESSION: 1. Appropriate placement of Dobbhoff tube. Signer Name: Adriano Noel MD Signed: 11/07/2019 4:25 PM Workstation Name: [id number]
[2019-11-07 21:14] LABS: BUN/Creatinine Ratio 28; Blood Urea Nitrogen 28 mg/dL (9-20); Calcium 8.2 mg/dL (8.4-10.2); Hemolysis Index 4
[2019-11-08] MEDS: HEPARIN 5,000 UNIT/1 ML VIAL SUB-Q SCH ×3 (06:07→21:44)
[2019-11-08 08:17] LABS: BUN/Creatinine Ratio 34; Blood Urea Nitrogen 31 mg/dL (9-20); Calcium 8.2 mg/dL (8.4-10.2); Hemolysis Index 70
[2019-11-08 08:23] LABS: Hematocrit 38.6 % (35.5-45.6); Hemoglobin 12.3 gm/dl (11.8-15.2); Mean Corpuscular HGB Conc 32 % (32-34); Mean Corpuscular Volume 96 fl (84-94); Red Blood Count 4.02 M/mm3 (3.65-5.03); Red Cell Distribution Width 15.6 % (13.2-15.2)
--- NOTE | 2019-11-08 08:23 | Progress Note ---
Assessment and Plan Assessment and plan: Acute toxic metabolic encephalopathy. Patient with a sodium of 170 on admission and now corrected to 145. Patient is on D5 half-normal saline and on tube feeding with increased free water intake. Severe hypernatremia. Nephrology consulted. Management as stated above and corrected SIRS. Patient meets criteria given the tachycardia, tachypnea and leukocytosis but no obvious signs of infection. Urinalysis and checks x-ray are negative. Blood cultures are negative. Acute renal failure. Etiology secondary to acute kidney injury from vasomotor nephropathy/dehydration. Continue IV fluids and follow-up BMP. Improving Hypokalemia. Replete potassium. 11/05/2019. Replete potassium. Hyponatremia has improved from 175> 171> 166--->156. Continue to monitor BMP closely. Nephrology following. 11/07/19; Patient was agitated and non verbal. Patient failed swallow evaluation and I order NG tube insertion and dietary consult. Increase free water. Patient was seen by psychiatry and pending recommendation. Disposition; per clinical course. Patient came from SNF but will discharge him back once he is stable and off NG tube feeding. Trying to reach to his sister pattie Guo at [phone] unsuccessfully. 11/08/2019; Patient was agitated and non verbal. Patient failed swallow evaluat ion and NG tube feeding. Increase free water. Hypernatremia corrected. Patient was seen by psychiatry and sign off, no psych recommendations. Disposition; per clinical course. Patient came from SNF but will discharge him back once he is stable and off NG tube feeding. History Interval history: Patient was agitated and didn't talk to me Patient refused to eat Patient has NG tube and on restraints Hospitalist Physical - Physical exam Narrative exam: Not in cardiopulmonary distress. The patient appeared well nourished and normally developed. Vital signs as documented. Head exam is unremarkable. No scleral icterus . Neck is without jugular venous distension, thyromegaly, or carotid bruits. Lungs are clear to auscultation. Cardiac exam reveals regular rate and Rhythm. Abdominal exam reveals normal bowel sounds, nontender, no organomegaly. Extremities are nonedematous and both femoral and pedal pulses are normal. CALL CENTER MANAGER: Patient was agitated and nonverbal. - Constitutional Vitals: Temp Pulse Resp BP Pulse Ox 97.2 F L 60 16 103/54 94 11/08/19 04:17 11/08/19 04:17 11/08/19 04:17 11/08/19 04:17 11/08/19 04:17 General appearance: Present: no acute distress, well-nourished HEART Score - HEART Score Troponin: Troponin T < 0.010 ng/mL (0.00-0.029) 11/03/19 18:20 Results - Labs CBC & Chem 7: 11/07/19 05:00 11/08/19 07:40 Labs: Laboratory Last Values WBC 13.1 K/mm3 (4.5-11.0) H 11/07/19 05:00 RBC 3.82 M/mm3 (3.65-5.03) 11/07/19 05:00 Hgb 11.8 gm/dl (11.8-15.2) 11/07/19 05:00 Hct 34.9 % (35.5-45.6) L 11/07/19 05:00 MCV 91 fl (84-94) 11/07/19 05:00 MCH 31 pg (28-32) 11/07/19 05:00 MCHC 34 % (32-34) 11/07/19 05:00 RDW 14.8 % (13.2-15.2) 11/07/19 05:00 Plt Count 211 K/mm3 (140-440) 11/07/19 05:00 Lymph % (Auto) 7.0 % (13.4-35.0) L 11/07/19 05:00 Jackson % (Auto) 3.8 % (0.0-7.3) 11/07/19 05:00 Eos % (Auto) 0.1 % (0.0-4.3) 11/07/19 05:00 Baso % (Auto) 0.2 % (0.0-1.8) 11/07/19 05:00 Lymph # 0.9 K/mm3 (1.2-5.4) L 11/07/19 05:00 Jackson # 0.5 K/mm3 (0.0-0.8) 11/07/19 05:00 Eos # 0.0 K/mm3 (0.0-0.4) 11/07/19 05:00 Baso # 0.0 K/mm3 (0.0-0.1) 11/07/19 05:00 Seg Neutrophils % 88.9 % (40.0-70.0) H 11/07/19 05:00 Seg Neutrophils # 11.7 K/mm3 (1.8-7.7) H 11/07/19 05:00 PT 16.1 Sec. (12.2-14.9) H 11/05/19 07:08 INR 1.26 (0.87-1.13) H 11/05/19 07:08 APTT 26.2 Sec. (24.2-36.6) 11/03/19 16:24 Sodium 145 mmol/L (137-145) 11/08/19 07:40 Potassium 3.2 mmol/L (3.6-5.0) L 11/07/19 20:24 Chloride 121.1 mmol/L (98-107) H 11/08/19 07:40 Carbon Dioxide 13 mmol/L (22-30) L 11/08/19 07:40 Anion Gap 15 mmol/L 11/08/19 07:40 BUN 31 mg/dL (9-20) H 11/08/19 07:40 Creatinine 0.9 mg/dL (0.8-1.3) 11/08/19 07:40 Estimated GFR > 60 ml/min 11/08/19 07:40 BUN/Creatinine Ratio 34 % 11/08/19 07:40 Glucose 129 mg/dL (75-100) H 11/08/19 07:40 POC Glucose 134 (70-105) H 11/08/19 05:57 Lactic Acid 1.70 mmol/L (0.7-2.0) 11/03/19 18:20 Calcium 8.2 mg/dL (8.4-10.2) L 11/08/19 07:40 Total Bilirubin 0.50 mg/dL (0.1-1.2) 11/03/19 16:24 AST 57 units/L (5-40) H 11/03/19 16:24 ALT 27 units/L (7-56) 11/03/19 16:24 Alkaline Phosphatase 79 units/L (35-129) 11/03/19 16:24 Troponin T < 0.010 ng/mL (0.00-0.029) 11/03/19 18:20 NT-Pro-B Natriuret Pep 1532 pg/mL (0-900) H 11/03/19 16:24 Total Protein 7.6 g/dL (6.3-8.2) 11/03/19 16:24 Albumin 2.5 g/dL (3.9-5) L 11/03/19 16:24 Albumin/Globulin Ratio 0.5 % 11/03/19 16:24 Lipase 36 units/L (13-60) 11/03/19 16:24 Urine Color Pam (Yellow) 11/07/19 06:55 Urine Turbidity Turbid (Clear) 11/07/19 06:55 Urine pH 5.0 (5.0-7.0) 11/07/19 06:55 Ur Specific [place] 1.016 (1.003-1.030) 11/07/19 06:55 Urine Protein 30 mg/dl mg/dL (Negative) 11/07/19 06:55 Urine Glucose (UA) Neg mg/dL (Negative) 11/07/19 06:55 Urine Ketones Neg mg/dL (Negative) 11/07/19 06:55 Urine Blood Mod (Negative) 11/07/19 06:55 Urine Nitrite Neg (Negative) 11/07/19 06:55 Urine Bilirubin Neg (Negative) 11/07/19 06:55 Urine Urobilinogen 4.0 mg/dL (<2.0) 11/07/19 06:55 Ur Leukocyte Esterase Mod (Negative) 11/07/19 06:55 Urine WBC (Auto) 27.0 /HPF (0.0-6.0) H 11/07/19 06:55 Urine RBC (Auto) 12.0 /HPF (0.0-6.0) 11/07/19 06:55 U Epithel Cells (Auto) < 1.0 /HPF (0-13.0) 11/07/19 06:55 Urine Yeast (Budding) Few /HPF 11/03/19 16:29 Uric Acid Crystals 1+ 11/07/19 06:55 Urine Mucus 3+ /HPF 11/07/19 06:55 Urine Opiates Screen Presumptive negative 11/03/19 16:29 Urine Methadone Screen Presumptive negative 11/03/19 16:29 Ur Barbiturates Screen Presumptive negative 11/03/19 16:29 Ur Phencyclidine Scrn Presumptive negative 11/03/19 16:29 Ur Amphetamines Screen Presumptive negative 11/03/19 16:29 U Benzodiazepines Scrn Presumptive negative 11/03/19 16:29 Urine Cocaine Screen Presumptive negative 11/03/19 16:29 U Marijuana (THC) Screen Presumptive negative 11/03/19 16:29 Drugs of Abuse Note Disclamer 11/03/19 16:29 Coronavirus (PCR) Negative (Negative) 11/04/19 09:56 Microbiology: Microbiology 11/03/19 16:24 Peripheral/Venous Blood Culture - Preliminary NO GROWTH AFTER 4 DAYS 11/03/19 16:24 Peripheral/Venous Blood Culture - Preliminary NO GROWTH AFTER 4 DAYS Alcazar/IV: Voiding Method Condom Catheter IV Catheter Type [Right Upper INT / Saline Lock arm] IV Catheter Type [Left Forearm INT / Saline Lock ] Active Medications - Current Medications Current Medications: Generic Name Dose Route Start Last Admin Trade Name Freq PRN Reason Stop Dose Admin Acetaminophen 650 mg 11/04/19 00:25 11/04/19 17:55 Tylenol PO 650 mg Q4H PRN Administration Pain MILD(1-3)/Fever >100.5/VALENTIN Lipase/Protease/Amylase 1 each 11/07/19 11:[address] 10,500 Unit FEEDTUBE PRN PRN For Clogged Feeding Tube Heparin Sodium (Porcine) 5,000 unit 11/04/19 06:00 11/08/19 06:07 Heparin SUB-Q 5,000 unit Q8HR GIDEON Administration Dextrose 1,000 mls @ 100 mls/hr 11/06/19 10:00 11/07/19 22:43 D5w IV 75 mls/hr DIRECT GIDEON Administration Ondansetron HCl 4 mg 11/04/19 00:25 Zofran IV Q8H PRN Nausea And Vomiting Simple Syrup 15 ml 11/07/19 11:03 Simple Syrup FEEDTUBE PRN PRN Hypoglycemia Simple Syrup 30 ml 11/07/19 11:03 Simple Syrup FEEDTUBE PRN PRN Hypoglycemia Sodium Bicarbonate 325 mg 11/07/19 11:03 Sodium Bicarbonate FEEDTUBE PRN PRN For Clogged Feeding Tube Sodium Chloride 10 ml 11/04/19 10:00 11/07/19 22:43 Sodium Chloride Flush Syringe 10 Ml IV 10 ml BID GIDEON Administration Sodium Chloride 10 ml 11/04/19 00:25 Sodium Chloride Flush Syringe 10 Ml IV PRN PRN LINE FLUSH Tamsulosin HCl 0.4 mg 11/06/19 10:00 11/07/19 10:00 Flomax PO 0.4 mg QDAY GIDEON Administration Nutrition/Malnutrition Assess - Dietary Evaluation Nutrition/Malnutrition Findings: Nutrition Notes Start: 11/04/19 09:16 Freq: Status: Active Protocol: Document 11/07/19 11:43 MK (Rec: 11/07/19 12:19 MK [id number]) Co-Sign 11/07/19 11:43 LP Nutrition Notes Need for Assessment generated from: MD Order Initial or Follow up Reassessment Other Pertinent Diagnosis Dehydration, AMS, SIRS Current Diet NPO Labs/Tests Na 156 K 3.5 BUN 29 Pertinent Medications D5w at 75 ml/hr Height 5 ft 10 in Weight 70.1 kg [place] Body Weight (kg) 75.45 BMI 22.1 Weight change and time frame Wt change noted Weight Status Appropriate Subjective/Other Information MD order for TF. 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 No Is Patient Ambulatory and/or Out of Bed No REE-([facility]-confined to bed) 1731.156 Calculation Used for Recommendations [facility] Additional Notes Protein needs are 95-119g (1.2 -1.5g/kg) Fluid needs are 1ml/kcal Nutrition Intervention Change Diet Order: TF Nutrition Support: Promote 1.0 at 75 ml/hr (goal rate) Flush 50 ml Kcal 1,800 Protein (gm) 112 Fluid (mL) 1,510 Goal #1 TF start/tolerance Goal #2 Na WNL Anticipated Discharge Needs: Unable to determine at this time Follow-Up By: 11/09/19 Additional Comments FU for TF tolerance, Na levels
[2019-11-08 08:24] LABS: Platelet Count 145 K/mm3 (140-440)
--- NOTE | 2019-11-08 08:49 | Progress Note ---
Assessment and Plan Assessment and plan: Acute toxic metabolic encephalopathy. Patient with a sodium of 170 on admission and now 156. We will continue to treat hyponatremia as likely etiology. Severe hypernatremia. Nephrology consulted. Start hypotonic IV fluids with D5W at 75 cc an hour. Monitor serial CBC. SIRS. Patient meets criteria given the tachycardia, tachypnea and leukocytosis but no obvious signs of infection. Urinalysis and checks x-ray are negative. Blood cultures are negative. Acute renal failure. Etiology secondary to acute kidney injury from vasomotor nephropathy/dehydration. Continue IV fluids and follow-up BMP. Improving Hypokalemia. Replete potassium. Enterococcus UTI -Urine culture came back on 11/08/2019 positive for enterococcus, pending medication and sensitivity -Patient is on ampicillin and will adjust antibiotics based on identification 11/05/2019. Replete potassium. Hyponatremia has improved from 175> 171> 166--->156. Continue to monitor BMP closely. Nephrology following. 11/07/19; Patient was agitated and non verbal. Patient failed swallow evaluation and I order NG tube insertion and dietary consult. Increase free water. Patient was seen by psychiatry and appreciate recommendations. Disposition; per clinical course. Patient came from SNF but will discharge him back once he is stable and off NG tube feeding. 11/08/2019; patient's potassium is corrected . Patient has enterococcus UTI and started with ampicillin pending sensitivity and identification. Tried to reach in contact with his sister Ms. Guo at [phone] but could not sheepskin pickler her phone. History Interval history: Patient was seen and evaluated this morning Patient talks very little, did not answer most of my questions Hospitalist Physical - Physical exam Narrative exam: Patient does not communicate much The patient appeared well nourished and normally developed. Vital signs as documented. Head exam is unremarkable. No scleral icterus . Neck is without jugular venous distension, thyromegaly, or carotid bruits. Lungs are clear to auscultation. Cardiac exam reveals regular rate and Rhythm. Abdominal exam reveals normal bowel sounds, nontender, no organomegaly. Extremities are nonedematous and both femoral and pedal pulses are normal. 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: Minimally communicative - Constitutional Vitals: Temp Pulse Resp BP Pulse Ox 97.2 F L 60 16 103/54 94 11/08/19 04:17 11/08/19 04:17 11/08/19 04:17 11/08/19 04:17 11/08/19 04:17 General appearance: Present: no acute distress, well-nourished HEART Score - HEART Score Troponin: Troponin T < 0.010 ng/mL (0.00-0.029) 11/03/19 18:20 Results - Labs CBC & Chem 7: 11/08/19 07:40 11/08/19 07:40 Labs: Laboratory Last Values WBC 12.3 K/mm3 (4.5-11.0) H 11/08/19 07:40 RBC 4.02 M/mm3 (3.65-5.03) 11/08/19 07:40 Hgb 12.3 gm/dl (11.8-15.2) 11/08/19 07:40 Hct 38.6 % (35.5-45.6) 11/08/19 07:40 MCV 96 fl (84-94) H 11/08/19 07:40 MCH 31 pg (28-32) 11/08/19 07:40 MCHC 32 % (32-34) 11/08/19 07:40 RDW 15.6 % (13.2-15.2) H 11/08/19 07:40 Plt Count 145 K/mm3 (140-440) 11/08/19 07:40 Lymph % (Auto) 7.0 % (13.4-35.0) L 11/07/19 05:00 [place] % (Auto) 3.8 % (0.0-7.3) 11/07/19 05:00 Eos % (Auto) 0.1 % (0.0-4.3) 11/07/19 05:00 Baso % (Auto) 0.2 % (0.0-1.8) 11/07/19 05:00 Lymph # 0.9 K/mm3 (1.2-5.4) L 11/07/19 05:00 [place] # 0.5 K/mm3 (0.0-0.8) 11/07/19 05:00 Eos # 0.0 K/mm3 (0.0-0.4) 11/07/19 05:00 Baso # 0.0 K/mm3 (0.0-0.1) 11/07/19 05:00 Seg Neutrophils % 88.9 % (40.0-70.0) H 11/07/19 05:00 Seg Neutrophils # 11.7 K/mm3 (1.8-7.7) H 11/07/19 05:00 PT 16.1 Sec. (12.2-14.9) H 11/05/19 07:08 INR 1.26 (0.87-1.13) H 11/05/19 07:08 APTT 26.2 Sec. (24.2-36.6) 11/03/19 16:24 Sodium 145 mmol/L (137-145) 11/08/19 07:40 Potassium 4.0 mmol/L (3.6-5.0) D 11/08/19 07:40 Chloride 121.1 mmol/L (98-107) H 11/08/19 07:40 Carbon Dioxide 13 mmol/L (22-30) L 11/08/19 07:40 Anion Gap 15 mmol/L 11/08/19 07:40 BUN 31 mg/dL (9-20) H 11/08/19 07:40 Creatinine 0.9 mg/dL (0.8-1.3) 11/08/19 07:40 Estimated GFR > 60 ml/min 11/08/19 07:40 BUN/Creatinine Ratio 34 % 11/08/19 07:40 Glucose 129 mg/dL (75-100) H 11/08/19 07:40 POC Glucose 134 (70-105) H 11/08/19 05:57 Lactic Acid 1.70 mmol/L (0.7-2.0) 11/03/19 18:20 Calcium 8.2 mg/dL (8.4-10.2) L 11/08/19 07:40 Total Bilirubin 0.50 mg/dL (0.1-1.2) 11/03/19 16:24 AST 57 units/L (5-40) H 11/03/19 16:24 ALT 27 units/L (7-56) 11/03/19 16:24 Alkaline Phosphatase 79 units/L (35-129) 11/03/19 16:24 Troponin T < 0.010 ng/mL (0.00-0.029) 11/03/19 18:20 NT-Pro-B Natriuret Pep 1532 pg/mL (0-900) H 11/03/19 16:24 Total Protein 7.6 g/dL (6.3-8.2) 11/03/19 16:24 Albumin 2.5 g/dL (3.9-5) L 11/03/19 16:24 Albumin/Globulin Ratio 0.5 % 11/03/19 16:24 Lipase 36 units/L (13-60) 11/03/19 16:24 Urine Color Pam (Yellow) 11/07/19 06:55 Urine Turbidity Turbid (Clear) 11/07/19 06:55 Urine pH 5.0 (5.0-7.0) 11/07/19 06:55 Ur Specific [place] 1.016 (1.003-1.030) 11/07/19 06:55 Urine Protein 30 mg/dl mg/dL (Negative) 11/07/19 06:55 Urine Glucose (UA) Neg mg/dL (Negative) 11/07/19 06:55 Urine Ketones Neg mg/dL (Negative) 11/07/19 06:55 Urine Blood Mod (Negative) 11/07/19 06:55 Urine Nitrite Neg (Negative) 11/07/19 06:55 Urine Bilirubin Neg (Negative) 11/07/19 06:55 Urine Urobilinogen 4.0 mg/dL (<2.0) 11/07/19 06:55 Ur Leukocyte Esterase Mod (Negative) 11/07/19 06:55 Urine WBC (Auto) 27.0 /HPF (0.0-6.0) H 11/07/19 06:55 Urine RBC (Auto) 12.0 /HPF (0.0-6.0) 11/07/19 06:55 U Epithel Cells (Auto) < 1.0 /HPF (0-13.0) 11/07/19 06:55 Urine Yeast (Budding) Few /HPF 11/03/19 16:29 Uric Acid Crystals 1+ 11/07/19 06:55 Urine Mucus 3+ /HPF 11/07/19 06:55 Urine Opiates Screen Presumptive negative 11/03/19 16:29 Urine Methadone Screen Presumptive negative 11/03/19 16:29 Ur Barbiturates Screen Presumptive negative 11/03/19 16:29 Ur Phencyclidine Scrn Presumptive negative 11/03/19 16:29 Ur Amphetamines Screen Presumptive negative 11/03/19 16:29 U Benzodiazepines Scrn Presumptive negative 11/03/19 16:29 Urine Cocaine Screen Presumptive negative 11/03/19 16:29 U Marijuana (THC) Screen Presumptive negative 11/03/19 16:29 Drugs of Abuse Note Disclamer 11/03/19 16:29 Coronavirus (PCR) Negative (Negative) 11/04/19 09:56 Microbiology: Microbiology 11/03/19 16:24 Peripheral/Venous Blood Culture - Preliminary NO GROWTH AFTER 4 DAYS 11/03/19 16:24 Peripheral/Venous Blood Culture - Preliminary NO GROWTH AFTER 4 DAYS [place]/IV: Voiding Method Condom Catheter IV Catheter Type [Right Upper INT / Saline Lock arm] IV Catheter Type [Left Forearm INT / Saline Lock ] Active Medications - Current Medications Current Medications: Generic Name Dose Route Start Last Admin Trade Name Freq PRN Reason Stop Dose Admin Acetaminophen 650 mg 11/04/19 00:25 11/04/19 17:55 Tylenol PO 650 mg Q4H PRN Administration Pain MILD(1-3)/Fever >100.5/VALENTIN Lipase/Protease/Amylase 1 each 11/07/19 11:[address] 10,500 Unit FEEDTUBE PRN PRN For Clogged Feeding Tube Heparin Sodium (Porcine) 5,000 unit 11/04/19 06:00 11/08/19 06:07 Heparin SUB-Q 5,000 unit Q8HR GIDEON Administration Dextrose 1,000 mls @ 100 mls/hr 11/06/19 10:00 11/07/19 22:43 D5w IV 75 mls/hr DIRECT GIDEON Administration Ondansetron HCl 4 mg 11/04/19 00:25 Zofran IV Q8H PRN Nausea And Vomiting Simple Syrup 15 ml 11/07/19 11:03 Simple Syrup FEEDTUBE PRN PRN Hypoglycemia Simple Syrup 30 ml 11/07/19 11:03 Simple Syrup FEEDTUBE PRN PRN Hypoglycemia Sodium Bicarbonate 325 mg 11/07/19 11:03 Sodium Bicarbonate FEEDTUBE PRN PRN For Clogged Feeding Tube Sodium Chloride 10 ml 11/04/19 10:00 11/07/19 22:43 Sodium Chloride Flush Syringe 10 Ml IV 10 ml BID GIDEON Administration Sodium Chloride 10 ml 11/04/19 00:25 Sodium Chloride Flush Syringe 10 Ml IV PRN PRN LINE FLUSH Tamsulosin HCl 0.4 mg 11/06/19 10:00 11/07/19 10:00 Flomax PO 0.4 mg QDAY GIDEON Administration Nutrition/Malnutrition Assess - Dietary Evaluation Nutrition/Malnutrition Findings: Nutrition Notes Start: 11/04/19 09:16 Freq: Status: Active Protocol: Document 11/07/19 11:43 MK (Rec: 11/07/19 12:19 MK [id number]) Co-Sign 11/07/19 11:43 LP Nutrition Notes Need for Assessment generated from: MD Order Initial or Follow up Reassessment Other Pertinent Diagnosis Dehydration, AMS, SIRS Current Diet NPO Labs/Tests Na 156 K 3.5 BUN 29 Pertinent Medications D5w at 75 ml/hr Height 5 ft 10 in Weight 70.1 kg [place] Body Weight (kg) 75.45 BMI 22.1 Weight change and time frame Wt change noted Weight Status Appropriate Subjective/Other Information MD order for TF. 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 No Is Patient Ambulatory and/or Out of Bed No REE-([facility]-confined to bed) 1731.156 Calculation Used for Recommendations [facility] Additional Notes Protein needs are 95-119g (1.2 -1.5g/kg) Fluid needs are 1ml/kcal Nutrition Intervention Change Diet Order: TF Nutrition Support: Promote 1.0 at 75 ml/hr (goal rate) Flush 50 ml Kcal 1,800 Protein (gm) 112 Fluid (mL) 1,510 Goal #1 TF start/tolerance Goal #2 Na WNL Anticipated Discharge Needs: Unable to determine at this time Follow-Up By: 11/09/19 Additional Comments FU for TF tolerance, Na levels
[2019-11-08] MEDS: TAMSULOSIN 0.4 MG CAP PO SCH (09:17)
[2019-11-08 10:18] LABS: Basophils % (Manual) 0 % (0.0-1.8); Eosinophils % (Manual) 0 % (0.0-4.3); Platelet Estimate Consistent w Auto; RBC Morphology Normal; Total Cells Counted 100
--- NOTE | 2019-11-08 11:59 | Progress Note ---
Assessment and Plan Assessment: Hypernatremia: Acute renal failure likely pre-renal: Dehydration: Altered Mental status: SIRS: History of dementia: Metabolic Acidosis: Plan: -Recent sodium levels today is 145, prior was 152 -Target drop in Na <10 meq/24 hours to prevent Cerebral edema -S/P D5W to 75 ml/hr -Sodium trending down -Check BMP every 4 hours -Strict I/O's monitoring -Start Sodium Bicarbonate 650 mg TID via feeding tube -Continue to monitor Subjective Date of service: 11/08/19 Principal diagnosis: Acute toxic metabolic encephalopathy Interval history: Patient seen lying in bed. Resting. Objective - Vital Signs Vital signs: Vital Signs - 12hr 11/08/19 11/08/19 04:17 10:09 Temperature 97.2 F L Pulse Rate 60 Respiratory 16 Rate Blood Pressure 103/54 O2 Sat by Pulse 94 97 Oximetry - General Appearance General appearance: chronically ill, fatigue EENT: ATNC Neck: no JVD, supple Respiratory: Present: Decreased Breath Sounds Cardiology: S1S2 Gastrointestinal: other (Has dobhoff tube in place) Integumentary: warm and dry Neurologic: other (Awake, does not follow commands) Musculoskeletal: other (No edema) - Lab 11/08/19 07:40 11/08/19 07:40 Most recent lab results Calcium 8.2 mg/dL (8.4-10.2) L 11/08/19 07:40 Medications & Allergies - Medications Allergies/Adverse Reactions: Allergies No Known Allergies Allergy (Unverified 01/31/16 13:51) Home Medications: Home Medications Medication Instructions Recorded Confirmed Last Taken Type Prednisone [predniSONE 10 mg 10 mg PO .TAPER #1 tab.ds.pk 02/02/16 11/04/19 Unknown Rx (6-Day Pack, 21 Tabs)] Amoxicillin/K Clav Tab [Augmentin 1 tab PO Q12HR #5 tab 02/03/16 11/04/19 Unknown Rx 875MG TAB] ALBUTEROL NEB's [Proventil 0.083% 2.5 mg IH Q3HRT PRN #30 nebu 02/04/16 11/04/19 Unknown Rx NEBS] Active Medications: Generic Name Dose Route Start Last Admin Trade Name Freq PRN Reason Stop Dose Admin Acetaminophen 650 mg 11/04/19 00:25 11/04/19 17:55 Tylenol PO 650 mg Q4H PRN Administration Pain MILD(1-3)/Fever >100.5/VALENTIN Lipase/Protease/Amylase 1 each 11/07/19 11:03 Pancreyine 10,500 Unit FEEDTUBE PRN PRN For Clogged Feeding Tube Heparin Sodium (Porcine) 5,000 unit 11/04/19 06:00 11/08/19 06:07 Heparin SUB-Q 5,000 unit Q8HR GIDEON Administration Ampicillin Sodium 2 gm in 100 mls @ 100 mls/hr 11/08/19 12:30 Ampicillin/Ns 2 Gm/100 Ml IV 11/10/19 06:59 Q6HR GIDEON Protocol Ondansetron HCl 4 mg 11/04/19 00:25 Zofran IV Q8H PRN Nausea And Vomiting Simple Syrup 15 ml 11/07/19 11:03 Simple Syrup FEEDTUBE PRN PRN Hypoglycemia Simple Syrup 30 ml 11/07/19 11:03 Simple Syrup FEEDTUBE PRN PRN Hypoglycemia Sodium Bicarbonate 325 mg 11/07/19 11:03 Sodium Bicarbonate FEEDTUBE PRN PRN For Clogged Feeding Tube Sodium Chloride 10 ml 11/04/19 10:00 11/08/19 09:17 Sodium Chloride Flush Syringe 10 Ml IV 10 ml BID GIDEON Administration Sodium Chloride 10 ml 11/04/19 00:25 Sodium Chloride Flush Syringe 10 Ml IV PRN PRN LINE FLUSH Tamsulosin HCl 0.4 mg 11/06/19 10:00 11/08/19 09:17 Flomax PO 0.4 mg QDAY GIDEON Administration
[2019-11-08] MEDS ORDERED: AMPICILLIN/NS 2 GM/100 ML 2 GM/100 ML BAG IV SCH (12:30)
[2019-11-08] MEDS: SODIUM BICARBONATE 650 MG TAB FEEDTUBE SCH ×2 (16:38→21:45)
[2019-11-08] MEDS: AMPICILLIN/NS 2 GM/100 ML 2 GM/100 ML BAG IV SCH ×2 (16:45→22:01)
[2019-11-08] MEDS: INSULIN LISPRO 100 UNIT/ML VIAL 3 mL SUB-Q SCH ×2 (18:00→22:07)
--- NOTE | 2019-11-08 18:12 | Cat Scan Report ---
CT head/brain wo con INDICATION / CLINICAL INFORMATION: 78 years Male; AMS. TECHNIQUE: Routine CT head without contrast. All CT scans at this location are performed using CT dos e reduction for ALARA by means of automated exposure control. 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 Lacunar infarcts are se en in the gangliocapsular regions and anterior left thalamus, as well. Similar type findings seen on prior. Otherwise, no acute hemorrhage, mass effect, midline shift, hydrocephalus, or acute, large territori al infarct. Mild to moderate cerebral and mild cerebellar atrophy. Mild to moderate degree of hippocampal atrophy suggested bilaterally. There are moderate, confluent areas of decreased attenuation in the white matter of the cerebral tess spheres, as well as the gangliocapsular regions. These are nonspecific findings and may be related to microangiopathy (hypertension, diabetes, atherosclerosis), given the patient's age. It might be diff icult to evaluate for small areas of ischemia without diffusion imaging by MRI. CRANIOCERVICAL JUNCTION: No significant abnormality. ORBITS: No significant abnormality of visualized orbits. SINUSES / MASTOIDS: No significant abnormality in the visualized paranasal sinuses or mastoid air les ls. ADDITIONAL FINDINGS: NG tube noted. 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 Atherosclerotic disease is seen in the anterior and posterior circulation. IMPRESSION: 1. No focal mass, hemorrhage, hydrocephalus, or acute, large territorial infarct. Follow-up with diff usion imaging by MRI, as clinically warranted. Signer Name: Lane Latham MD, III Signed: 11/08/2019 6:07 PM Workstation Name: [id number]
[2019-11-09] MEDS: AMPICILLIN/NS 2 GM/100 ML 2 GM/100 ML BAG IV SCH ×4 (04:44→22:37)
[2019-11-09] MEDS: INSULIN LISPRO 100 UNIT/ML VIAL 3 mL SUB-Q SCH ×3 (05:36→23:27)
[2019-11-09] MEDS: HEPARIN 5,000 UNIT/1 ML VIAL SUB-Q SCH ×3 (05:37→21:42)
--- NOTE | 2019-11-09 07:44 | Progress Note ---
Assessment and Plan Assessment and plan: Acute toxic metabolic encephalopathy. Patient with a sodium of 170 on admission and now 156. We will continue to treat hyponatremia as likely etiology. Severe hypernatremia. Nephrology consulted. Start hypotonic IV fluids with D5W at 75 cc an hour. Monitor serial CBC. SIRS. Patient meets criteria given the tachycardia, tachypnea and leukocytosis but no obvious signs of infection. Urinalysis and checks x-ray are negative. Blood cultures are negative. Acute renal failure. Etiology secondary to acute kidney injury from vasomotor nephropathy/dehydration. Continue IV fluids and follow-up BMP. Improving Hypokalemia. Replete potassium. Enterococcus UTI -Urine culture came back on 11/08/2019 positive for enterococcus, pending medication and sensitivity -Patient is on ampicillin and will adjust antibiotics based on identification 11/05/2019. Replete potassium. Hyponatremia has improved from 175> 171> 166--->156. Continue to monitor BMP closely. Nephrology following. 11/07/19; Patient was agitated and non verbal. Patient failed swallow evaluation and I order NG tube insertion and dietary consult. Increase free water. Patient was seen by psychiatry and appreciate recommendations. Disposition; per clinical course. Patient came from SNF but will discharge him back once he is stable and off NG tube feeding. 11/08/2019; patient's sodium is corrected . Patient has enterococcus UTI and started with ampicillin pending sensitivity and identification. Discussed with his sister Ms. Guo at [phone] 11/09/2019; patient failed swallow evaluation again and will continue with NG tube feeding, will do modified barium swallow. Enterococcus sensitive to penicillin and will continue with IV ampicillin. Management plan was discussed in detail with his sister Ms. Guo. History Interval history: Patient was seen and evaluated this morning Patient talks very little, did not answer most of my questions Hospitalist Physical - Physical exam Narrative exam: Patient does not communicate much The patient appeared well nourished and normally developed. Vital signs as documented. Head exam is unremarkable. No scleral icterus . Neck is without jugular venous distension, thyromegaly, or carotid bruits. Lungs are clear to auscultation. Cardiac exam reveals regular rate and Rhythm. Abdominal exam reveals normal bowel sounds, nontender, no organomegaly. Extremities are nonedematous and both femoral and pedal pulses are normal. 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 - Constitutional Vitals: Temp Pulse Resp BP Pulse Ox 97.5 F L 64 20 92/58 98 11/09/19 04:30 11/09/19 04:30 11/09/19 04:30 11/09/19 04:30 11/09/19 04:30 General appearance: Present: no acute distress, well-nourished HEART Score - HEART Score Troponin: Troponin T < 0.010 ng/mL (0.00-0.029) 11/03/19 18:20 Results - Labs CBC & Chem 7: 11/08/19 07:40 11/08/19 07:40 Labs: Laboratory Last Values WBC 12.3 K/mm3 (4.5-11.0) H 11/08/19 07:40 RBC 4.02 M/mm3 (3.65-5.03) 11/08/19 07:40 Hgb 12.3 gm/dl (11.8-15.2) 11/08/19 07:40 Hct 38.6 % (35.5-45.6) 11/08/19 07:40 MCV 96 fl (84-94) H 11/08/19 07:40 MCH 31 pg (28-32) 11/08/19 07:40 MCHC 32 % (32-34) 11/08/19 07:40 RDW 15.6 % (13.2-15.2) H 11/08/19 07:40 Plt Count 145 K/mm3 (140-440) 11/08/19 07:40 Lymph % (Auto) 7.0 % (13.4-35.0) L 11/07/19 05:00 Ceiba % (Auto) 3.8 % (0.0-7.3) 11/07/19 05:00 Eos % (Auto) 0.1 % (0.0-4.3) 11/07/19 05:00 Baso % (Auto) 0.2 % (0.0-1.8) 11/07/19 05:00 Lymph # 0.9 K/mm3 (1.2-5.4) L 11/07/19 05:00 Ceiba # 0.5 K/mm3 (0.0-0.8) 11/07/19 05:00 Eos # 0.0 K/mm3 (0.0-0.4) 11/07/19 05:00 Baso # 0.0 K/mm3 (0.0-0.1) 11/07/19 05:00 Seg Neutrophils % 88.9 % (40.0-70.0) H 11/07/19 05:00 Add Manual Diff Complete 11/08/19 07:40 Total Counted 100 11/08/19 07:40 Seg Neutrophils # 11.7 K/mm3 (1.8-7.7) H 11/07/19 05:00 Seg Neuts % (Manual) 89.0 % (40.0-70.0) H 11/08/19 07:40 Band Neutrophils % 0 % 11/08/19 07:40 Lymphocytes % (Manual) 6.0 % (13.4-35.0) L 11/08/19 07:40 Reactive Lymphs % (Man) 0 % 11/08/19 07:40 Monocytes % (Manual) 4.0 % (0.0-7.3) 11/08/19 07:40 Eosinophils % (Manual) 0 % (0.0-4.3) 11/08/19 07:40 Basophils % (Manual) 0 % (0.0-1.8) 11/08/19 07:40 Metamyelocytes % 1.0 % 11/08/19 07:40 Myelocytes % 0 % 11/08/19 07:40 Promyelocytes % 0 % 11/08/19 07:40 Blast Cells % 0 % 11/08/19 07:40 Nucleated RBC % Not Reportable 11/08/19 07:40 Seg Neutrophils # Man 10.9 K/mm3 (1.8-7.7) H 11/08/19 07:40 Band Neutrophils # 0.0 K/mm3 11/08/19 07:40 Lymphocytes # (Manual) 0.7 K/mm3 (1.2-5.4) L 11/08/19 07:40 Abs React Lymphs (Man) 0.0 K/mm3 11/08/19 07:40 Monocytes # (Manual) 0.5 K/mm3 (0.0-0.8) 11/08/19 07:40 Eosinophils # (Manual) 0.0 K/mm3 (0.0-0.4) 11/08/19 07:40 Basophils # (Manual) 0.0 K/mm3 (0.0-0.1) 11/08/19 07:40 Metamyelocytes # 0.1 K/mm3 11/08/19 07:40 Myelocytes # 0.0 K/mm3 11/08/19 07:40 Promyelocytes # 0.0 K/mm3 11/08/19 07:40 Blast Cells # 0.0 K/mm3 11/08/19 07:40 WBC Morphology Not Reportable 11/08/19 07:40 Hypersegmented Neuts Not Reportable 11/08/19 07:40 Hyposegmented Neuts Not Reportable 11/08/19 07:40 Hypogranular Neuts Not Reportable 11/08/19 07:40 Smudge Cells Not Reportable 11/08/19 07:40 Toxic Granulation Not Reportable 11/08/19 07:40 Toxic Vacuolation Not Reportable 11/08/19 07:40 Dohle Bodies Not Reportable 11/08/19 07:40 Pelger-Huet Anomaly Not Reportable 11/08/19 07:40 Emile Rods Not Reportable 11/08/19 07:40 Platelet Estimate Consistent w auto 11/08/19 07:40 Clumped Platelets Not Reportable 11/08/19 07:40 Plt Clumps, EDTA Not Reportable 11/08/19 07:40 Large Platelets Not Reportable 11/08/19 07:40 Giant Platelets Not Reportable 11/08/19 07:40 Platelet Satelliting Not Reportable 11/08/19 07:40 Plt Morphology Comment Not Reportable 11/08/19 07:40 RBC Morphology Normal 11/08/19 07:40 Dimorphic RBCs Not Reportable 11/08/19 07:40 Polychromasia Not Reportable 11/08/19 07:40 Hypochromasia Not Reportable 11/08/19 07:40 Poikilocytosis Not Reportable 11/08/19 07:40 Anisocytosis Not Reportable 11/08/19 07:40 Microcytosis Not Reportable 11/08/19 07:40 Macrocytosis Not Reportable 11/08/19 07:40 Spherocytes Not Reportable 11/08/19 07:40 Pappenheimer Bodies Not Reportable 11/08/19 07:40 Sickle Cells Not Reportable 11/08/19 07:40 Target Cells Not Reportable 11/08/19 07:40 Tear Drop Cells Not Reportable 11/08/19 07:40 Ovalocytes Not Reportable 11/08/19 07:40 Helmet Cells Not Reportable 11/08/19 07:40 Garza-Cement Bodies Not Reportable 11/08/19 07:40 [place] Rings Not Reportable 11/08/19 07:40 Carl Cells Not Reportable 11/08/19 07:40 Bite Cells Not Reportable 11/08/19 07:40 Crenated Cell Not Reportable 11/08/19 07:40 Elliptocytes Not Reportable 11/08/19 07:40 Acanthocytes (Spur) Not Reportable 11/08/19 07:40 Rouleaux Not Reportable 11/08/19 07:40 Hemoglobin C Crystals Not Reportable 11/08/19 07:40 Schistocytes Not Reportable 11/08/19 07:40 Malaria parasites Not Reportable 11/08/19 07:40 Jose Alberto Bodies Not Reportable 11/08/19 07:40 Hem Pathologist Commnt No 11/08/19 07:40 PT 16.1 Sec. (12.2-14.9) H 11/05/19 07:08 INR 1.26 (0.87-1.13) H 11/05/19 07:08 APTT 26.2 Sec. (24.2-36.6) 11/03/19 16:24 Sodium 145 mmol/L (137-145) 11/08/19 07:40 Potassium 4.0 mmol/L (3.6-5.0) D 11/08/19 07:40 Chloride 121.1 mmol/L (98-107) H 11/08/19 07:40 Carbon Dioxide 13 mmol/L (22-30) L 11/08/19 07:40 Anion Gap 15 mmol/L 11/08/19 07:40 BUN 31 mg/dL (9-20) H 11/08/19 07:40 Creatinine 0.9 mg/dL (0.8-1.3) 11/08/19 07:40 Estimated GFR > 60 ml/min 11/08/19 07:40 BUN/Creatinine Ratio 34 % 11/08/19 07:40 Glucose 129 mg/dL (75-100) H 11/08/19 07:40 POC Glucose 132 (70-105) H 11/09/19 04:51 Lactic Acid 1.70 mmol/L (0.7-2.0) 11/03/19 18:20 Calcium 8.2 mg/dL (8.4-10.2) L 11/08/19 07:40 Total Bilirubin 0.50 mg/dL (0.1-1.2) 11/03/19 16:24 AST 57 units/L (5-40) H 11/03/19 16:24 ALT 27 units/L (7-56) 11/03/19 16:24 Alkaline Phosphatase 79 units/L (35-129) 11/03/19 16:24 Troponin T < 0.010 ng/mL (0.00-0.029) 11/03/19 18:20 NT-Pro-B Natriuret Pep 1532 pg/mL (0-900) H 11/03/19 16:24 Total Protein 7.6 g/dL (6.3-8.2) 11/03/19 16:24 Albumin 2.5 g/dL (3.9-5) L 11/03/19 16:24 Albumin/Globulin Ratio 0.5 % 11/03/19 16:24 Lipase 36 units/L (13-60) 11/03/19 16:24 Urine Color Pam (Yellow) 11/07/19 06:55 Urine Turbidity Turbid (Clear) 11/07/19 06:55 Urine pH 5.0 (5.0-7.0) 11/07/19 06:55 Ur Specific [place] 1.016 (1.003-1.030) 11/07/19 06:55 Urine Protein 30 mg/dl mg/dL (Negative) 11/07/19 06:55 Urine Glucose (UA) Neg mg/dL (Negative) 11/07/19 06:55 Urine Ketones Neg mg/dL (Negative) 11/07/19 06:55 Urine Blood Mod (Negative) 11/07/19 06:55 Urine Nitrite Neg (Negative) 11/07/19 06:55 Urine Bilirubin Neg (Negative) 11/07/19 06:55 Urine Urobilinogen 4.0 mg/dL (<2.0) 11/07/19 06:55 Ur Leukocyte Esterase Mod (Negative) 11/07/19 06:55 Urine WBC (Auto) 27.0 /HPF (0.0-6.0) H 11/07/19 06:55 Urine RBC (Auto) 12.0 /HPF (0.0-6.0) 11/07/19 06:55 U Epithel Cells (Auto) < 1.0 /HPF (0-13.0) 11/07/19 06:55 Urine Yeast (Budding) Few /HPF 11/03/19 16:29 Uric Acid Crystals 1+ 11/07/19 06:55 Urine Mucus 3+ /HPF 11/07/19 06:55 Urine Opiates Screen Presumptive negative 11/03/19 16:29 Urine Methadone Screen Presumptive negative 11/03/19 16:29 Ur Barbiturates Screen Presumptive negative 11/03/19 16:29 Ur Phencyclidine Scrn Presumptive negative 11/03/19 16:29 Ur Amphetamines Screen Presumptive negative 11/03/19 16:29 U Benzodiazepines Scrn Presumptive negative 11/03/19 16:29 Urine Cocaine Screen Presumptive negative 11/03/19 16:29 U Marijuana (THC) Screen Presumptive negative 11/03/19 16:29 Drugs of Abuse Note Disclamer 11/03/19 16:29 Coronavirus (PCR) Negative (Negative) 11/04/19 09:56 Microbiology: Microbiology 11/07/19 06:55 Urine,Clean Catch Urine Culture - Preliminary Enterococcus Faecalis 11/03/19 16:24 Peripheral/Venous Blood Culture - Final NO GROWTH AFTER 5 DAYS 11/03/19 16:24 Peripheral/Venous Blood Culture - Final NO GROWTH AFTER 5 DAYS Alcazar/IV: Voiding Method Indwelling Catheter IV Catheter Type [Right Upper INT / Saline Lock arm] IV Catheter Type [Left Forearm INT / Saline Lock ] Active Medications - Current Medications Current Medications: Generic Name Dose Route Start Last Admin Trade Name Freq PRN Reason Stop Dose Admin Acetaminophen 650 mg 11/04/19 00:25 11/04/19 17:55 Tylenol PO 650 mg Q4H PRN Administration Pain MILD(1-3)/Fever >100.5/VALENTIN Lipase/Protease/Amylase 1 each 11/07/19 11:[address] 10,500 Unit FEEDTUBE PRN PRN For Clogged Feeding Tube Heparin Sodium (Porcine) 5,000 unit 11/04/19 06:00 11/09/19 05:37 Heparin SUB-Q 5,000 unit Q8HR GIDEON Administration Ampicillin Sodium 2 gm in 100 mls @ 100 mls/hr 11/08/19 17:00 11/09/19 04:44 Ampicillin/Ns 2 Gm/100 Ml IV 11/10/19 11:59 100 mls/hr Q6H GIDEON Administration Protocol Insulin Human Lispro 0 unit 11/08/19 17:00 11/09/19 05:36 Humalog SUB-Q Not Given Q6H [facility] Protocol Ondansetron HCl 4 mg 11/04/19 00:25 Zofran IV Q8H PRN Nausea And Vomiting Simple Syrup 15 ml 11/07/19 11:03 Simple Syrup FEEDTUBE PRN PRN Hypoglycemia Simple Syrup 30 ml 11/07/19 11:03 Simple Syrup FEEDTUBE PRN PRN Hypoglycemia Sodium Bicarbonate 325 mg 11/07/19 11:03 Sodium Bicarbonate FEEDTUBE PRN PRN For Clogged Feeding Tube Sodium Bicarbonate 650 mg 11/08/19 14:00 11/08/19 21:45 Sodium Bicarbonate FEEDTUBE 650 mg TID GIDEON Administration Sodium Chloride 10 ml 11/04/19 10:00 11/08/19 21:45 Sodium Chloride Flush Syringe 10 Ml IV 10 ml BID GIDEON Administration Sodium Chloride 10 ml 11/04/19 00:25 Sodium Chloride Flush Syringe 10 Ml IV PRN PRN LINE FLUSH Tamsulosin HCl 0.4 mg 11/06/19 10:00 11/08/19 09:17 Flomax PO 0.4 mg QDAY GIDEON Administration Nutrition/Malnutrition Assess - Dietary Evaluation Nutrition/Malnutrition Findings: Nutrition Notes Start: 11/04/19 09:16 Freq: Status: Active Protocol: Document 11/07/19 11:43 (Rec: 11/07/19 12:19 [id number]) Co-Sign 11/07/19 11:43 LP Nutrition Notes Need for Assessment generated from: MD Order Initial or Follow up Reassessment Other Pertinent Diagnosis Dehydration, AMS, SIRS Current Diet NPO Labs/Tests Na 156 K 3.5 BUN 29 Pertinent Medications D5w at 75 ml/hr Height 5 ft 10 in Weight 70.1 kg [place] Body Weight (kg) 75.45 BMI 22.1 Weight change and time frame Wt change noted Weight Status Appropriate Subjective/Other Information MD order for TF. Percent of energy/protein needs met: 0%/0% Burn Absent Trauma Absent GI Symptoms None Current % PO Negligible Minimum of two criteria Yes Energy Intake (severe) < or equal to 50% Estimated Energy Requirement > or equal to 5 days Reduced Polymerization Supervisor Strength Measurably Reduced (severe) #1 Nutrition Diagnosis Malnutrition As Evidenced by Signs and Symptoms Pt admitted with dehydration and weak press bucker strength Diagnosis Progress(for reassessment Continues documentation) Is patient on ventilator? No Is Patient Ambulatory and/or Out of Bed No REE-([facility]-confined to bed) 1731.156 Calculation Used for Recommendations [facility] Additional Notes Protein needs are 95-119g (1.2 -1.5g/kg) Fluid needs are 1ml/kcal Nutrition Intervention Change Diet Order: TF Nutrition Support: Promote 1.0 at 75 ml/hr (goal rate) Flush 50 ml Kcal 1,800 Protein (gm) 112 Fluid (mL) 1,510 Goal #1 TF start/tolerance Goal #2 Na WNL Anticipated Discharge Needs: Unable to determine at this time Follow-Up By: 11/09/19 Additional Comments FU for TF tolerance, Na levels
[2019-11-09] MEDS: SODIUM BICARBONATE 650 MG TAB FEEDTUBE SCH ×3 (10:57→21:41)
[2019-11-09] MEDS: TAMSULOSIN 0.4 MG CAP PO SCH (10:57)
--- NOTE | 2019-11-09 14:33 | Progress Note ---
Assessment and Plan Assessment: Hypernatremia, Resolving: Acute renal failure likely pre-renal: Dehydration: Altered Mental status: SIRS: History of dementia: Metabolic Acidosis: Plan: -Now new chemistry labs noted for today. Recent sodium levels today is 145, prior was 152 -Target drop in Na <10 meq/24 hours to prevent Cerebral edema -S/P D5W to 75 ml/hr -Sodium trending down -BMP in a.m -Strict I/O's monitoring -On Sodium Bicarbonate 650 mg TID via feeding tube -Continue to monitor Subjective Date of service: 11/09/19 Principal diagnosis: Acute toxic metabolic encephalopathy Interval history: Patient seen lying in bed. Opens eyes. 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 Objective - Vital Signs Vital signs: Vital Signs - 12hr 11/09/19 11/09/19 04:30 08:56 Temperature 97.5 F L Pulse Rate 64 Respiratory 20 Rate Blood Pressure 92/58 O2 Sat by Pulse 98 98 Oximetry - General Appearance General appearance: well-developed, chronically ill, fatigue EENT: ATNC Neck: no JVD, supple Respiratory: Present: Decreased Breath Sounds Cardiology: S1S2 Gastrointestinal: normoactive bowel sounds Integumentary: warm and dry Neurologic: other (Awake) Musculoskeletal: other (No edema) - Lab 11/08/19 07:40 11/08/19 07:40 Most recent lab results Calcium 8.2 mg/dL (8.4-10.2) L 11/08/19 07:40 Medications & Allergies - Medications Allergies/Adverse Reactions: Allergies No Known Allergies Allergy (Unverified 01/31/16 13:51) Home Medications: Home Medications Medication Instructions Recorded Confirmed Last Taken Type Prednisone [predniSONE 10 mg 10 mg PO .TAPER #1 tab.ds.pk 02/02/16 11/04/19 Unknown Rx (6-Day Pack, 21 Tabs)] Amoxicillin/K Clav Tab [Augmentin 1 tab PO Q12HR #5 tab 02/03/16 11/04/19 Unknown Rx 875MG TAB] ALBUTEROL NEB's [Proventil 0.083% 2.5 mg IH Q3HRT PRN #30 nebu 02/04/16 11/04/19 Unknown Rx NEBS] Active Medications: Generic Name Dose Route Start Last Admin Trade Name Freq PRN Reason Stop Dose Admin Acetaminophen 650 mg 11/04/19 00:25 11/04/19 17:55 Tylenol PO 650 mg Q4H PRN Administration Pain MILD(1-3)/Fever >100.5/VALENTIN Lipase/Protease/Amylase 1 each 11/07/19 11:03 Pancrebrian Panda 10,500 Unit FEEDTUBE PRN PRN For Clogged Feeding Tube Heparin Sodium (Porcine) 5,000 unit 11/04/19 06:00 11/09/19 05:37 Heparin SUB-Q 5,000 unit Q8HR GIDEON Administration Ampicillin Sodium 2 gm in 100 mls @ 100 mls/hr 11/08/19 17:00 11/09/19 10:57 Ampicillin/Ns 2 Gm/100 Ml IV 11/10/19 11:59 100 mls/hr Q6H GIDEON Administration Protocol Insulin Human Lispro 0 unit 11/08/19 17:00 11/09/19 12:00 Humalog SUB-Q Not Given Q6H [facility] Protocol Ondansetron HCl 4 mg 11/04/19 00:25 Zofran IV Q8H PRN Nausea And Vomiting Simple Syrup 15 ml 11/07/19 11:03 Simple Syrup FEEDTUBE PRN PRN Hypoglycemia Simple Syrup 30 ml 11/07/19 11:03 Simple Syrup FEEDTUBE PRN PRN Hypoglycemia Sodium Bicarbonate 325 mg 11/07/19 11:03 Sodium Bicarbonate FEEDTUBE PRN PRN For Clogged Feeding Tube Sodium Bicarbonate 650 mg 11/08/19 14:00 11/09/19 10:57 Sodium Bicarbonate FEEDTUBE 650 mg TID GIDEON Administration Sodium Chloride 10 ml 11/04/19 10:00 11/08/19 21:45 Sodium Chloride Flush Syringe 10 Ml IV 10 ml BID GIDEON Administration Sodium Chloride 10 ml 11/04/19 00:25 Sodium Chloride Flush Syringe 10 Ml IV PRN PRN LINE FLUSH Tamsulosin HCl 0.4 mg 11/06/19 10:00 11/09/19 10:57 Flomax PO 0.4 mg QDAY GIDEON Administration
--- NOTE | 2019-11-09 17:12 | Vascular Lab Report ---
DUPLEX DOPPLER UPPER EXTREMITY VENOUS, RIGHT INDICATION / CLINICAL INFORMATION: swelling in rt arm. TECHNIQUE: Duplex doppler imaging was performed through the veins of the right upper extremity using venous comp ression and other maneuvers. COMPARISON: None available. FINDINGS: RIGHT INTERNAL JUGULAR VEIN: Negative. RIGHT SUBCLAVIAN VEIN: Negative. RIGHT AXILLARY VEIN: Negative. RIGHT BRACHIAL VEIN: Negative. RIGHT FOREARM VEINS: Negative. RIGHT BASILIC VEIN (SUPERFICIAL): Negative. ADDITIONAL FINDINGS: None. IMPRESSION: 1. No sonographic evidence for DVT. Signer Name: Robert Miranda MD Signed: 11/09/2019 5:08 PM Workstation Name: [id number]
[2019-11-10] MEDS: HEPARIN 5,000 UNIT/1 ML VIAL SUB-Q SCH ×3 (05:10→22:42)
[2019-11-10] MEDS: INSULIN LISPRO 100 UNIT/ML VIAL 3 mL SUB-Q SCH ×3 (05:10→18:00)
[2019-11-10] MEDS: AMPICILLIN/NS 2 GM/100 ML 2 GM/100 ML BAG IV SCH (05:11)
--- NOTE | 2019-11-10 07:38 | Progress Note ---
Assessment and Plan Assessment and plan: Acute toxic metabolic encephalopathy. Patient with a sodium of 170 on admission and now 156. We will continue to treat hyponatremia as likely etiology. Severe hypernatremia. Nephrology consulted. Start hypotonic IV fluids with D5W at 75 cc an hour. Monitor serial CBC. SIRS. Patient meets criteria given the tachycardia, tachypnea and leukocytosis but no obvious signs of infection. Urinalysis and checks x-ray are negative. Blood cultures are negative. Acute renal failure. Etiology secondary to acute kidney injury from vasomotor nephropathy/dehydration. Continue IV fluids and follow-up BMP. Improving Hypokalemia. Replete potassium. Enterococcus UTI -Urine culture came back on 11/08/2019 positive for enterococcus, pending medication and sensitivity -Patient is on ampicillin and will adjust antibiotics based on identification 11/05/2019. Replete potassium. Hyponatremia has improved from 175> 171> 166--->156. Continue to monitor BMP closely. Nephrology following. 11/07/19; Patient was agitated and non verbal. Patient failed swallow evaluation and I order NG tube insertion and dietary consult. Increase free water. Patient was seen by psychiatry and appreciate recommendations. Disposition; per clinical course. Patient came from SNF but will discharge him back once he is stable and off NG tube feeding. 11/08/2019; patient's sodium is corrected . Patient has enterococcus UTI and started with ampicillin pending sensitivity and identification. Discussed with his sister Ms. Guo at [phone] 11/09/2019; patient failed swallow evaluation again and will continue with NG tube feeding, will do modified barium swallow. Enterococcus sensitive to penicillin and will continue with IV ampicillin. Management plan was discussed in detail with his sister Ms. Guo. 11/10/2019; patient is still on NG tube. UTI due to enterococcus sensitive to penicillin and was treated with IV ampicillin for 2 days and changed to p.o. amoxicillin [11/10/2019] to be given for 3 more days. Modified barium swallow was done and recommended PEG tube placement. I called his sister Ms. uGo at [phone] to update but did not spanish moss picker her phone. I put a consult for GI to evaluate for PEG tube placement. History Interval history: Patient was seen and evaluated this morning Patient talks very little, did not answer most of my questions Hospitalist Physical - Physical exam Narrative exam: Patient does not communicate much The patient appeared well nourished and normally developed. Vital signs as documented. Head exam is unremarkable. No scleral icterus . Neck is without jugular venous distension, thyromegaly, or carotid bruits. Lungs are clear to auscultation. Cardiac exam reveals regular rate and Rhythm. Abdominal exam reveals normal bowel sounds, nontender, no organomegaly. Extremities are nonedematous and both femoral and pedal pulses are normal. 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 - Constitutional Vitals: Temp Pulse Resp BP Pulse Ox 98.7 F 30 L 26 H 115/49 90 11/10/19 05:08 11/10/19 05:08 11/10/19 05:08 11/10/19 05:08 11/10/19 05:08 General appearance: Present: no acute distress, well-nourished HEART Score - HEART Score Troponin: Troponin T < 0.010 ng/mL (0.00-0.029) 11/03/19 18:20 Results - Labs CBC & Chem 7: 11/08/19 07:40 11/10/19 08:54 Labs: Laboratory Last Values WBC 12.3 K/mm3 (4.5-11.0) H 11/08/19 07:40 RBC 4.02 M/mm3 (3.65-5.03) 11/08/19 07:40 Hgb 12.3 gm/dl (11.8-15.2) 11/08/19 07:40 Hct 38.6 % (35.5-45.6) 11/08/19 07:40 MCV 96 fl (84-94) H 11/08/19 07:40 MCH 31 pg (28-32) 11/08/19 07:40 MCHC 32 % (32-34) 11/08/19 07:40 RDW 15.6 % (13.2-15.2) H 11/08/19 07:40 Plt Count 145 K/mm3 (140-440) 11/08/19 07:40 Lymph % (Auto) 7.0 % (13.4-35.0) L 11/07/19 05:00 Gates % (Auto) 3.8 % (0.0-7.3) 11/07/19 05:00 Eos % (Auto) 0.1 % (0.0-4.3) 11/07/19 05:00 Baso % (Auto) 0.2 % (0.0-1.8) 11/07/19 05:00 Lymph # 0.9 K/mm3 (1.2-5.4) L 11/07/19 05:00 Gates # 0.5 K/mm3 (0.0-0.8) 11/07/19 05:00 Eos # 0.0 K/mm3 (0.0-0.4) 11/07/19 05:00 Baso # 0.0 K/mm3 (0.0-0.1) 11/07/19 05:00 Seg Neutrophils % 88.9 % (40.0-70.0) H 11/07/19 05:00 Add Manual Diff Complete 11/08/19 07:40 Total Counted 100 11/08/19 07:40 Seg Neutrophils # 11.7 K/mm3 (1.8-7.7) H 11/07/19 05:00 Seg Neuts % (Manual) 89.0 % (40.0-70.0) H 11/08/19 07:40 Band Neutrophils % 0 % 11/08/19 07:40 Lymphocytes % (Manual) 6.0 % (13.4-35.0) L 11/08/19 07:40 Reactive Lymphs % (Man) 0 % 11/08/19 07:40 Monocytes % (Manual) 4.0 % (0.0-7.3) 11/08/19 07:40 Eosinophils % (Manual) 0 % (0.0-4.3) 11/08/19 07:40 Basophils % (Manual) 0 % (0.0-1.8) 11/08/19 07:40 Metamyelocytes % 1.0 % 11/08/19 07:40 Myelocytes % 0 % 11/08/19 07:40 Promyelocytes % 0 % 11/08/19 07:40 Blast Cells % 0 % 11/08/19 07:40 Nucleated RBC % Not Reportable 11/08/19 07:40 Seg Neutrophils # Man 10.9 K/mm3 (1.8-7.7) H 11/08/19 07:40 Band Neutrophils # 0.0 K/mm3 11/08/19 07:40 Lymphocytes # (Manual) 0.7 K/mm3 (1.2-5.4) L 11/08/19 07:40 Abs React Lymphs (Man) 0.0 K/mm3 11/08/19 07:40 Monocytes # (Manual) 0.5 K/mm3 (0.0-0.8) 11/08/19 07:40 Eosinophils # (Manual) 0.0 K/mm3 (0.0-0.4) 11/08/19 07:40 Basophils # (Manual) 0.0 K/mm3 (0.0-0.1) 11/08/19 07:40 Metamyelocytes # 0.1 K/mm3 11/08/19 07:40 Myelocytes # 0.0 K/mm3 11/08/19 07:40 Promyelocytes # 0.0 K/mm3 11/08/19 07:40 Blast Cells # 0.0 K/mm3 11/08/19 07:40 WBC Morphology Not Reportable 11/08/19 07:40 Hypersegmented Neuts Not Reportable 11/08/19 07:40 Hyposegmented Neuts Not Reportable 11/08/19 07:40 Hypogranular Neuts Not Reportable 11/08/19 07:40 Smudge Cells Not Reportable 11/08/19 07:40 Toxic Granulation Not Reportable 11/08/19 07:40 Toxic Vacuolation Not Reportable 11/08/19 07:40 Dohle Bodies Not Reportable 11/08/19 07:40 Pelger-Huet Anomaly Not Reportable 11/08/19 07:40 Emile Rods Not Reportable 11/08/19 07:40 Platelet Estimate Consistent w auto 11/08/19 07:40 Clumped Platelets Not Reportable 11/08/19 07:40 Plt Clumps, EDTA Not Reportable 11/08/19 07:40 Large Platelets Not Reportable 11/08/19 07:40 Giant Platelets Not Reportable 11/08/19 07:40 Platelet Satelliting Not Reportable 11/08/19 07:40 Plt Morphology Comment Not Reportable 11/08/19 07:40 RBC Morphology Normal 11/08/19 07:40 Dimorphic RBCs Not Reportable 11/08/19 07:40 Polychromasia Not Reportable 11/08/19 07:40 Hypochromasia Not Reportable 11/08/19 07:40 Poikilocytosis Not Reportable 11/08/19 07:40 Anisocytosis Not Reportable 11/08/19 07:40 Microcytosis Not Reportable 11/08/19 07:40 Macrocytosis Not Reportable 11/08/19 07:40 Spherocytes Not Reportable 11/08/19 07:40 Pappenheimer Bodies Not Reportable 11/08/19 07:40 Sickle Cells Not Reportable 11/08/19 07:40 Target Cells Not Reportable 11/08/19 07:40 Tear Drop Cells Not Reportable 11/08/19 07:40 Ovalocytes Not Reportable 11/08/19 07:40 Helmet Cells Not Reportable 11/08/19 07:40 Garza-Lecompte Bodies Not Reportable 11/08/19 07:40 Engelhard Rings Not Reportable 11/08/19 07:40 Forsan Cells Not Reportable 11/08/19 07:40 Bite Cells Not Reportable 11/08/19 07:40 Crenated Cell Not Reportable 11/08/19 07:40 Elliptocytes Not Reportable 11/08/19 07:40 Acanthocytes (Spur) Not Reportable 11/08/19 07:40 Rouleaux Not Reportable 11/08/19 07:40 Hemoglobin C Crystals Not Reportable 11/08/19 07:40 Schistocytes Not Reportable 11/08/19 07:40 Malaria parasites Not Reportable 11/08/19 07:40 Jose Alberto Bodies Not Reportable 11/08/19 07:40 Hem Pathologist Commnt No 11/08/19 07:40 PT 16.1 Sec. (12.2-14.9) H 11/05/19 07:08 INR 1.26 (0.87-1.13) H 11/05/19 07:08 APTT 26.2 Sec. (24.2-36.6) 11/03/19 16:24 Sodium 145 mmol/L (137-145) 11/08/19 07:40 Potassium 4.0 mmol/L (3.6-5.0) D 11/08/19 07:40 Chloride 121.1 mmol/L (98-107) H 11/08/19 07:40 Carbon Dioxide 13 mmol/L (22-30) L 11/08/19 07:40 Anion Gap 15 mmol/L 11/08/19 07:40 BUN 31 mg/dL (9-20) H 11/08/19 07:40 Creatinine 0.9 mg/dL (0.8-1.3) 11/08/19 07:40 Estimated GFR > 60 ml/min 11/08/19 07:40 BUN/Creatinine Ratio 34 % 11/08/19 07:40 Glucose 129 mg/dL (75-100) H 11/08/19 07:40 POC Glucose 122 (70-105) H 11/10/19 05:24 Lactic Acid 1.70 mmol/L (0.7-2.0) 11/03/19 18:20 Calcium 8.2 mg/dL (8.4-10.2) L 11/08/19 07:40 Total Bilirubin 0.50 mg/dL (0.1-1.2) 11/03/19 16:24 AST 57 units/L (5-40) H 11/03/19 16:24 ALT 27 units/L (7-56) 11/03/19 16:24 Alkaline Phosphatase 79 units/L (35-129) 11/03/19 16:24 Troponin T < 0.010 ng/mL (0.00-0.029) 11/03/19 18:20 NT-Pro-B Natriuret Pep 1532 pg/mL (0-900) H 11/03/19 16:24 Total Protein 7.6 g/dL (6.3-8.2) 11/03/19 16:24 Albumin 2.5 g/dL (3.9-5) L 11/03/19 16:24 Albumin/Globulin Ratio 0.5 % 11/03/19 16:24 Lipase 36 units/L (13-60) 11/03/19 16:24 Urine Color Pam (Yellow) 11/07/19 06:55 Urine Turbidity Turbid (Clear) 11/07/19 06:55 Urine pH 5.0 (5.0-7.0) 11/07/19 06:55 Ur Specific [place] 1.016 (1.003-1.030) 11/07/19 06:55 Urine Protein 30 mg/dl mg/dL (Negative) 11/07/19 06:55 Urine Glucose (UA) Neg mg/dL (Negative) 11/07/19 06:55 Urine Ketones Neg mg/dL (Negative) 11/07/19 06:55 Urine Blood Mod (Negative) 11/07/19 06:55 Urine Nitrite Neg (Negative) 11/07/19 06:55 Urine Bilirubin Neg (Negative) 11/07/19 06:55 Urine Urobilinogen 4.0 mg/dL (<2.0) 11/07/19 06:55 Ur Leukocyte Esterase Mod (Negative) 11/07/19 06:55 Urine WBC (Auto) 27.0 /HPF (0.0-6.0) H 11/07/19 06:55 Urine RBC (Auto) 12.0 /HPF (0.0-6.0) 11/07/19 06:55 U Epithel Cells (Auto) < 1.0 /HPF (0-13.0) 11/07/19 06:55 Urine Yeast (Budding) Few /HPF 11/03/19 16:29 Uric Acid Crystals 1+ 11/07/19 06:55 Urine Mucus 3+ /HPF 11/07/19 06:55 Urine Opiates Screen Presumptive negative 11/03/19 16:29 Urine Methadone Screen Presumptive negative 11/03/19 16:29 Ur Barbiturates Screen Presumptive negative 11/03/19 16:29 Ur Phencyclidine Scrn Presumptive negative 11/03/19 16:29 Ur Amphetamines Screen Presumptive negative 11/03/19 16:29 U Benzodiazepines Scrn Presumptive negative 11/03/19 16:29 Urine Cocaine Screen Presumptive negative 11/03/19 16:29 U Marijuana (THC) Screen Presumptive negative 11/03/19 16:29 Drugs of Abuse Note Disclamer 11/03/19 16:29 Coronavirus (PCR) Negative (Negative) 11/04/19 09:56 Microbiology: Microbiology 11/07/19 06:55 Urine,Clean Catch Urine Culture - Final Enterococcus Faecalis Alcazar/IV: Voiding Method Indwelling Catheter IV Catheter Type [Right Upper INT / Saline Lock arm] IV Catheter Type [Left Forearm INT / Saline Lock ] Active Medications - Current Medications Current Medications: Generic Name Dose Route Start Last Admin Trade Name Freq PRN Reason Stop Dose Admin Acetaminophen 650 mg 11/04/19 00:25 11/04/19 17:55 Tylenol PO 650 mg Q4H PRN Administration Pain MILD(1-3)/Fever >100.5/VALENTIN Lipase/Protease/Amylase 1 each 11/07/19 11:03 Pancreaze 10,500 Unit FEEDTUBE PRN PRN For Clogged Feeding Tube Heparin Sodium (Porcine) 5,000 unit 11/04/19 06:00 11/10/19 05:10 Heparin SUB-Q 5,000 unit Q8HR GIDEON Administration Insulin Human Lispro 0 unit 11/08/19 17:00 11/10/19 05:10 Humalog SUB-Q Not Given Q6H [facility] Protocol Ondansetron HCl 4 mg 11/04/19 00:25 Zofran IV Q8H PRN Nausea And Vomiting Simple Syrup 15 ml 11/07/19 11:03 Simple Syrup FEEDTUBE PRN PRN Hypoglycemia Simple Syrup 30 ml 11/07/19 11:03 Simple Syrup FEEDTUBE PRN PRN Hypoglycemia Sodium Bicarbonate 325 mg 11/07/19 11:03 Sodium Bicarbonate FEEDTUBE PRN PRN For Clogged Feeding Tube Sodium Bicarbonate 650 mg 11/08/19 14:00 11/09/19 21:41 Sodium Bicarbonate FEEDTUBE 650 mg TID GIDEON Administration Sodium Chloride 10 ml 11/04/19 10:00 11/09/19 21:42 Sodium Chloride Flush Syringe 10 Ml IV 10 ml BID GIDEON Administration Sodium Chloride 10 ml 11/04/19 00:25 Sodium Chloride Flush Syringe 10 Ml IV PRN PRN LINE FLUSH Tamsulosin HCl 0.4 mg 11/06/19 10:00 11/09/19 10:57 Flomax PO 0.4 mg QDAY GIDEON Administration Nutrition/Malnutrition Assess - Dietary Evaluation Nutrition/Malnutrition Findings: Nutrition Notes Start: 11/04/19 09:16 Freq: Status: Active Protocol: Document 11/09/19 12:47 ALMA (Rec: 11/09/19 13:57 ALMA [id number]) Co-Sign 11/09/19 12:47 LM Nutrition Notes Initial or Follow up Reassessment Current Diagnosis Acute Kidney Injury, Malnutrition Other Pertinent Diagnosis Dehydration, AMS, SIRS Current Diet Promote 75ml/hr Labs/Tests Na 145 K 4 BUN 31 Pertinent Medications D5w at 75 ml/hr Height 5 ft 10 in Weight 70.1 kg [place] Body Weight (kg) 75.45 BMI 22.1 Weight Status Appropriate Subjective/Other Information F/u TF tolerance. Per RN, pt is tolerating TF at goal rate. 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 No Is Patient Ambulatory and/or Out of Bed No REE-([facility]-confined to bed) 1731.156 Calculation Used for Recommendations [facility][1] Additional Notes Protein needs are 95-119g (1.2 -1.5g/kg) Fluid needs are 1ml/kcal Nutrition Intervention Change Diet Order: TF Nutrition Support: Promote 1.0 at 75 ml/hr (goal rate) Flush 50 ml Kcal 1,800 Protein (gm) 112 Fluid (mL) 1,510 Goal #1 TF tolerance Anticipated Discharge Needs: Unable to determine at this time Follow-Up By: 11/14/19 Additional Comments F/u for stable TF
[2019-11-10 09:35] LABS: BUN/Creatinine Ratio 35; Blood Urea Nitrogen 28 mg/dL (9-20); Calcium 8.2 mg/dL (8.4-10.2); Hemolysis Index 5
[2019-11-10] MEDS: TAMSULOSIN 0.4 MG CAP PO SCH (09:53)
[2019-11-10] MEDS: SODIUM BICARBONATE 650 MG TAB FEEDTUBE SCH ×3 (09:53→22:42)
[2019-11-10] MEDS: AMOXICILLIN 250 MG/10 ML ORAL SYRINGE FEEDTUBE SCH ×3 (09:53→22:42)
--- NOTE | 2019-11-10 11:16 | Progress Note ---
Assessment and Plan Hypernatremia: Acute renal failure likely pre-renal: Dehydration: Altered Mental status: SIRS: History of dementia: Plan: - Na is rising again due to oral intake - will restart D5W 50 cc/h -Strict I/Os monitoring Casper Perdomo MD [phone] Subjective Date of service: 11/10/19 Principal diagnosis: Acute toxic metabolic encephalopathy Interval history: patient was in barium swallow this AM Objective - Vital Signs Vital signs: Vital Signs - 12hr 11/10/19 11/10/19 05:08 08:46 Temperature 98.7 F Pulse Rate 30 L Respiratory 26 H Rate Blood Pressure 115/49 O2 Sat by Pulse 90 96 Oximetry - Lab 11/08/19 07:40 11/10/19 08:54 Most recent lab results Calcium 8.2 mg/dL (8.4-10.2) L 11/10/19 08:54 Medications & Allergies - Medications Allergies/Adverse Reactions: Allergies No Known Allergies Allergy (Unverified 01/31/16 13:51) Home Medications: Home Medications Medication Instructions Recorded Confirmed Last Taken Type Prednisone [predniSONE 10 mg 10 mg PO .TAPER #1 tab.ds.pk 02/02/16 11/04/19 Unknown Rx (6-Day Pack, 21 Tabs)] Amoxicillin/K Clav Tab [Augmentin 1 tab PO Q12HR #5 tab 02/03/16 11/04/19 Unknown Rx 875MG TAB] ALBUTEROL NEB's [Proventil 0.083% 2.5 mg IH Q3HRT PRN #30 nebu 02/04/16 11/04/19 Unknown Rx NEBS] Active Medications: Generic Name Dose Route Start Last Admin Trade Name Freq PRN Reason Stop Dose Admin Acetaminophen 650 mg 11/04/19 00:25 11/04/19 17:55 Tylenol PO 650 mg Q4H PRN Administration Pain MILD(1-3)/Fever >100.5/VALENTIN Amoxicillin 500 mg 11/10/19 08:30 11/10/19 09:53 Amoxicillin Oral Liqd FEEDTUBE 11/12/19 22:01 500 mg Q8HR GIDEON Administration Lipase/Protease/Amylase 1 each 11/07/19 11:03 Pancrebrian Panda 10,500 Unit FEEDTUBE PRN PRN For Clogged Feeding Tube Heparin Sodium (Porcine) 5,000 unit 11/04/19 06:00 11/10/19 05:10 Heparin SUB-Q 5,000 unit Q8HR GIDEON Administration Insulin Human Lispro 0 unit 11/08/19 17:00 11/10/19 05:10 Humalog SUB-Q Not Given Q6H [facility] Protocol Ondansetron HCl 4 mg 11/04/19 00:25 Zofran IV Q8H PRN Nausea And Vomiting Simple Syrup 15 ml 11/07/19 11:03 Simple Syrup FEEDTUBE PRN PRN Hypoglycemia Simple Syrup 30 ml 11/07/19 11:03 Simple Syrup FEEDTUBE PRN PRN Hypoglycemia Sodium Bicarbonate 325 mg 11/07/19 11:03 Sodium Bicarbonate FEEDTUBE PRN PRN For Clogged Feeding Tube Sodium Bicarbonate 650 mg 11/08/19 14:00 11/10/19 09:53 Sodium Bicarbonate FEEDTUBE 650 mg TID GIDEON Administration Sodium Chloride 10 ml 11/04/19 10:00 11/09/19 21:42 Sodium Chloride Flush Syringe 10 Ml IV 10 ml BID GIDEON Administration Sodium Chloride 10 ml 11/04/19 00:25 Sodium Chloride Flush Syringe 10 Ml IV PRN PRN LINE FLUSH Tamsulosin HCl 0.4 mg 11/06/19 10:00 11/10/19 09:53 Flomax PO 0.4 mg QDAY GIDEON Administration
--- NOTE | 2019-11-10 11:41 | Fluoroscopy Report ---
Limited modified barium swallow Indication: Stroke with dysphagia Technique: Swallowing was evaluated in the lateral position under direct fluoroscopy. Findings: The patient was evaluated with puree and thin barium consistencies. Swallowing mechanism w as overall weak and there was poor swallowing of puree consistency. There was poor elevation of the s wallowing apparatus, early spill, and vallecular retention. With thin liquid, there was deep flash pe netration reaching the level of the cords with no associated cough reflex. Exam was aborted after episode of deep flash penetration as above. Impression: Grossly abnormal exam as above. Fluoroscopic time: 1.5 minutes Number of fluoroscopic images: 4 Signer Name: Juan Francisco Graham MD Signed: 11/10/2019 11:37 AM Workstation Name: [id number]
[2019-11-11] MEDS: INSULIN LISPRO 100 UNIT/ML VIAL 3 mL SUB-Q SCH ×5 (01:33→22:59)
[2019-11-11 06:39] LABS: Blood Urea Nitrogen 27 mg/dL (9-20); Calcium 8.3 mg/dL (8.4-10.2); Hemolysis Index 0
[2019-11-11 06:44] LABS: BUN/Creatinine Ratio 39
[2019-11-11] MEDS: AMOXICILLIN 250 MG/10 ML ORAL SYRINGE FEEDTUBE SCH ×3 (06:44→22:53)
[2019-11-11] MEDS: HEPARIN 5,000 UNIT/1 ML VIAL SUB-Q SCH ×3 (06:44→22:52)
--- NOTE | 2019-11-11 07:37 | Progress Note ---
Assessment and Plan Assessment and plan: Acute toxic metabolic encephalopathy. Patient with a sodium of 170 on admission and now 156. We will continue to treat hyponatremia as likely etiology. Severe hypernatremia. Nephrology consulted. Start hypotonic IV fluids with D5W at 75 cc an hour. Monitor serial CBC. SIRS. Patient meets criteria given the tachycardia, tachypnea and leukocytosis but no obvious signs of infection. Urinalysis and checks x-ray are negative. Blood cultures are negative. Acute renal failure. Etiology secondary to acute kidney injury from vasomotor nephropathy/dehydration. Continue IV fluids and follow-up BMP. Improving Hypokalemia. Replete potassium. Enterococcus UTI -Urine culture came back on 11/08/2019 positive for enterococcus, pending medication and sensitivity -Patient is on ampicillin and will adjust antibiotics based on identification 11/05/2019. Replete potassium. Hyponatremia has improved from 175> 171> 166--->156. Continue to monitor BMP closely. Nephrology following. 11/07/19; Patient was agitated and non verbal. Patient failed swallow evaluation and I order NG tube insertion and dietary consult. Increase free water. Patient was seen by psychiatry and appreciate recommendations. Disposition; per clinical course. Patient came from SNF but will discharge him back once he is stable and off NG tube feeding. 11/08/2019; patient's sodium is corrected . Patient has enterococcus UTI and started with ampicillin pending sensitivity and identification. Discussed with his sister Ms. Guo at [phone] 11/09/2019; patient failed swallow evaluation again and will continue with NG tube feeding, will do modified barium swallow. Enterococcus sensitive to penicillin and will continue with IV ampicillin. Management plan was discussed in detail with his sister Ms. Guo. 11/10/2019; patient is still on NG tube. UTI due to enterococcus sensitive to penicillin and was treated with IV ampicillin for 2 days and changed to p.o. amoxicillin [11/10/2019] to be given for 3 more days. Modified barium swallow was done and recommended PEG tube placement. I called his sister Ms. Guo at [phone] to update but did not supervisor picking crew her phone. I put a consult for GI to evaluate for PEG tube placement. 11/11/2019; patient is still on NG tube. UTI due to enterococcus sensitive to penicillin and was treated with IV ampicillin for 2 days and changed to p.o. amoxicillin [11/10/2019] to be given for 3 more days. Modified barium swallow was done and recommended PEG tube placement. I called his sister Ms. Guo at [phone] to update but did not supervisor picking crew her phone. I put a consult for GI to evaluate for PEG tube placement. History Interval history: Patient was seen and evaluated this morning Patient talks very little, did not answer most of my questions Hospitalist Physical - Physical exam Narrative exam: Patient does not communicate much The patient appeared well nourished and normally developed. Vital signs as documented. Head exam is unremarkable. No scleral icterus . Neck is without jugular venous distension, thyromegaly, or carotid bruits. Lungs are clear to auscultation. Cardiac exam reveals regular rate and Rhythm. Abdominal exam reveals normal bowel sounds, nontender, no organomegaly. Extremities are nonedematous and both femoral and pedal pulses are normal. 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 - Constitutional Vitals: Temp Pulse Resp BP Pulse Ox 99.0 F 69 18 109/62 95 11/11/19 06:10 11/11/19 06:10 11/11/19 06:10 11/11/19 06:10 11/11/19 06:10 General appearance: Present: no acute distress, well-nourished HEART Score - HEART Score Troponin: Troponin T < 0.010 ng/mL (0.00-0.029) 11/03/19 18:20 Results - Labs CBC & Chem 7: 11/08/19 07:40 11/11/19 05:18 Labs: Laboratory Last Values WBC 12.3 K/mm3 (4.5-11.0) H 11/08/19 07:40 RBC 4.02 M/mm3 (3.65-5.03) 11/08/19 07:40 Hgb 12.3 gm/dl (11.8-15.2) 11/08/19 07:40 Hct 38.6 % (35.5-45.6) 11/08/19 07:40 MCV 96 fl (84-94) H 11/08/19 07:40 MCH 31 pg (28-32) 11/08/19 07:40 MCHC 32 % (32-34) 11/08/19 07:40 RDW 15.6 % (13.2-15.2) H 11/08/19 07:40 Plt Count 145 K/mm3 (140-440) 11/08/19 07:40 Lymph % (Auto) 7.0 % (13.4-35.0) L 11/07/19 05:00 [place] % (Auto) 3.8 % (0.0-7.3) 11/07/19 05:00 Eos % (Auto) 0.1 % (0.0-4.3) 11/07/19 05:00 Baso % (Auto) 0.2 % (0.0-1.8) 11/07/19 05:00 Lymph # 0.9 K/mm3 (1.2-5.4) L 11/07/19 05:00 [place] # 0.5 K/mm3 (0.0-0.8) 11/07/19 05:00 Eos # 0.0 K/mm3 (0.0-0.4) 11/07/19 05:00 Baso # 0.0 K/mm3 (0.0-0.1) 11/07/19 05:00 Seg Neutrophils % 88.9 % (40.0-70.0) H 11/07/19 05:00 Add Manual Diff Complete 11/08/19 07:40 Total Counted 100 11/08/19 07:40 Seg Neutrophils # 11.7 K/mm3 (1.8-7.7) H 11/07/19 05:00 Seg Neuts % (Manual) 89.0 % (40.0-70.0) H 11/08/19 07:40 Band Neutrophils % 0 % 11/08/19 07:40 Lymphocytes % (Manual) 6.0 % (13.4-35.0) L 11/08/19 07:40 Reactive Lymphs % (Man) 0 % 11/08/19 07:40 Monocytes % (Manual) 4.0 % (0.0-7.3) 11/08/19 07:40 Eosinophils % (Manual) 0 % (0.0-4.3) 11/08/19 07:40 Basophils % (Manual) 0 % (0.0-1.8) 11/08/19 07:40 Metamyelocytes % 1.0 % 11/08/19 07:40 Myelocytes % 0 % 11/08/19 07:40 Promyelocytes % 0 % 11/08/19 07:40 Blast Cells % 0 % 11/08/19 07:40 Nucleated RBC % Not Reportable 11/08/19 07:40 Seg Neutrophils # Man 10.9 K/mm3 (1.8-7.7) H 11/08/19 07:40 Band Neutrophils # 0.0 K/mm3 11/08/19 07:40 Lymphocytes # (Manual) 0.7 K/mm3 (1.2-5.4) L 11/08/19 07:40 Abs React Lymphs (Man) 0.0 K/mm3 11/08/19 07:40 Monocytes # (Manual) 0.5 K/mm3 (0.0-0.8) 11/08/19 07:40 Eosinophils # (Manual) 0.0 K/mm3 (0.0-0.4) 11/08/19 07:40 Basophils # (Manual) 0.0 K/mm3 (0.0-0.1) 11/08/19 07:40 Metamyelocytes # 0.1 K/mm3 11/08/19 07:40 Myelocytes # 0.0 K/mm3 11/08/19 07:40 Promyelocytes # 0.0 K/mm3 11/08/19 07:40 Blast Cells # 0.0 K/mm3 11/08/19 07:40 WBC Morphology Not Reportable 11/08/19 07:40 Hypersegmented Neuts Not Reportable 11/08/19 07:40 Hyposegmented Neuts Not Reportable 11/08/19 07:40 Hypogranular Neuts Not Reportable 11/08/19 07:40 Smudge Cells Not Reportable 11/08/19 07:40 Toxic Granulation Not Reportable 11/08/19 07:40 Toxic Vacuolation Not Reportable 11/08/19 07:40 Dohle Bodies Not Reportable 11/08/19 07:40 Pelger-Huet Anomaly Not Reportable 11/08/19 07:40 Emile Rods Not Reportable 11/08/19 07:40 Platelet Estimate Consistent w auto 11/08/19 07:40 Clumped Platelets Not Reportable 11/08/19 07:40 Plt Clumps, EDTA Not Reportable 11/08/19 07:40 Large Platelets Not Reportable 11/08/19 07:40 Giant Platelets Not Reportable 11/08/19 07:40 Platelet Satelliting Not Reportable 11/08/19 07:40 Plt Morphology Comment Not Reportable 11/08/19 07:40 RBC Morphology Normal 11/08/19 07:40 Dimorphic RBCs Not Reportable 11/08/19 07:40 Polychromasia Not Reportable 11/08/19 07:40 Hypochromasia Not Reportable 11/08/19 07:40 Poikilocytosis Not Reportable 11/08/19 07:40 Anisocytosis Not Reportable 11/08/19 07:40 Microcytosis Not Reportable 11/08/19 07:40 Macrocytosis Not Reportable 11/08/19 07:40 Spherocytes Not Reportable 11/08/19 07:40 Pappenheimer Bodies Not Reportable 11/08/19 07:40 Sickle Cells Not Reportable 11/08/19 07:40 Target Cells Not Reportable 11/08/19 07:40 Tear Drop Cells Not Reportable 11/08/19 07:40 Ovalocytes Not Reportable 11/08/19 07:40 Helmet Cells Not Reportable 11/08/19 07:40 Garza-Donna Bodies Not Reportable 11/08/19 07:40 [place] Rings Not Reportable 11/08/19 07:40 Carl Cells Not Reportable 11/08/19 07:40 Bite Cells Not Reportable 11/08/19 07:40 Crenated Cell Not Reportable 11/08/19 07:40 Elliptocytes Not Reportable 11/08/19 07:40 Acanthocytes (Spur) Not Reportable 11/08/19 07:40 Rouleaux Not Reportable 11/08/19 07:40 Hemoglobin C Crystals Not Reportable 11/08/19 07:40 Schistocytes Not Reportable 11/08/19 07:40 Malaria parasites Not Reportable 11/08/19 07:40 Jose Alberto Bodies Not Reportable 11/08/19 07:40 Hem Pathologist Commnt No 11/08/19 07:40 PT 16.1 Sec. (12.2-14.9) H 11/05/19 07:08 INR 1.26 (0.87-1.13) H 11/05/19 07:08 APTT 26.2 Sec. (24.2-36.6) 11/03/19 16:24 Sodium 145 mmol/L (137-145) 11/11/19 05:18 Potassium 4.0 mmol/L (3.6-5.0) 11/11/19 05:18 Chloride 111.5 mmol/L (98-107) H 11/11/19 05:18 Carbon Dioxide 23 mmol/L (22-30) 11/11/19 05:18 Anion Gap 15 mmol/L 11/11/19 05:18 BUN 27 mg/dL (9-20) H 11/11/19 05:18 Creatinine 0.7 mg/dL (0.8-1.3) L 11/11/19 05:18 Estimated GFR > 60 ml/min 11/11/19 05:18 BUN/Creatinine Ratio 39 % 11/11/19 05:18 Glucose 139 mg/dL (75-100) H 11/11/19 05:18 POC Glucose 104 (70-105) 11/10/19 23:43 Lactic Acid 1.70 mmol/L (0.7-2.0) 11/03/19 18:20 Calcium 8.3 mg/dL (8.4-10.2) L 11/11/19 05:18 Total Bilirubin 0.50 mg/dL (0.1-1.2) 11/03/19 16:24 AST 57 units/L (5-40) H 11/03/19 16:24 ALT 27 units/L (7-56) 11/03/19 16:24 Alkaline Phosphatase 79 units/L (35-129) 11/03/19 16:24 Troponin T < 0.010 ng/mL (0.00-0.029) 11/03/19 18:20 NT-Pro-B Natriuret Pep 1532 pg/mL (0-900) H 11/03/19 16:24 Total Protein 7.6 g/dL (6.3-8.2) 11/03/19 16:24 Albumin 2.5 g/dL (3.9-5) L 11/03/19 16:24 Albumin/Globulin Ratio 0.5 % 11/03/19 16:24 Lipase 36 units/L (13-60) 11/03/19 16:24 Urine Color Pam (Yellow) 11/07/19 06:55 Urine Turbidity Turbid (Clear) 11/07/19 06:55 Urine pH 5.0 (5.0-7.0) 11/07/19 06:55 Ur Specific Gary 1.016 (1.003-1.030) 11/07/19 06:55 Urine Protein 30 mg/dl mg/dL (Negative) 11/07/19 06:55 Urine Glucose (UA) Neg mg/dL (Negative) 11/07/19 06:55 Urine Ketones Neg mg/dL (Negative) 11/07/19 06:55 Urine Blood Mod (Negative) 11/07/19 06:55 Urine Nitrite Neg (Negative) 11/07/19 06:55 Urine Bilirubin Neg (Negative) 11/07/19 06:55 Urine Urobilinogen 4.0 mg/dL (<2.0) 11/07/19 06:55 Ur Leukocyte Esterase Mod (Negative) 11/07/19 06:55 Urine WBC (Auto) 27.0 /HPF (0.0-6.0) H 11/07/19 06:55 Urine RBC (Auto) 12.0 /HPF (0.0-6.0) 11/07/19 06:55 U Epithel Cells (Auto) < 1.0 /HPF (0-13.0) 11/07/19 06:55 Urine Yeast (Budding) Few /HPF 11/03/19 16:29 Uric Acid Crystals 1+ 11/07/19 06:55 Urine Mucus 3+ /HPF 11/07/19 06:55 Urine Opiates Screen Presumptive negative 11/03/19 16:29 Urine Methadone Screen Presumptive negative 11/03/19 16:29 Ur Barbiturates Screen Presumptive negative 11/03/19 16:29 Ur Phencyclidine Scrn Presumptive negative 11/03/19 16:29 Ur Amphetamines Screen Presumptive negative 11/03/19 16:29 U Benzodiazepines Scrn Presumptive negative 11/03/19 16:29 Urine Cocaine Screen Presumptive negative 11/03/19 16:29 U Marijuana (THC) Screen Presumptive negative 11/03/19 16:29 Drugs of Abuse Note Disclamer 11/03/19 16:29 Coronavirus (PCR) Negative (Negative) 11/04/19 09:56 Alcazar/IV: Voiding Method Indwelling Catheter IV Catheter Type [Right Upper INT / Saline Lock arm] IV Catheter Type [Left Forearm INT / Saline Lock ] Active Medications - Current Medications Current Medications: Generic Name Dose Route Start Last Admin Trade Name Freq PRN Reason Stop Dose Admin Acetaminophen 650 mg 11/04/19 00:25 11/04/19 17:55 Tylenol PO 650 mg Q4H PRN Administration Pain MILD(1-3)/Fever >100.5/VALENTIN Amoxicillin 500 mg 11/10/19 08:30 11/11/19 06:44 Amoxicillin Oral Liqd FEEDTUBE 11/12/19 22:01 500 mg Q8HR GIDEON Administration Lipase/Protease/Amylase 1 each 11/07/19 11:03 Pancreaze 10,500 Unit FEEDTUBE PRN PRN For Clogged Feeding Tube Heparin Sodium (Porcine) 5,000 unit 11/04/19 06:00 11/11/19 06:44 Heparin SUB-Q 5,000 unit Q8HR GIDEON Administration Dextrose 1,000 mls @ 50 mls/hr 11/10/19 12:00 D5w IV DIRECT GIDEON Insulin Human Lispro 0 unit 11/08/19 17:00 11/11/19 06:43 Humalog SUB-Q Not Given Q6H [facility] Protocol Ondansetron HCl 4 mg 11/04/19 00:25 Zofran IV Q8H PRN Nausea And Vomiting Simple Syrup 15 ml 11/07/19 11:03 Simple Syrup FEEDTUBE PRN PRN Hypoglycemia Simple Syrup 30 ml 11/07/19 11:03 Simple Syrup FEEDTUBE PRN PRN Hypoglycemia Sodium Bicarbonate 325 mg 11/07/19 11:03 Sodium Bicarbonate FEEDTUBE PRN PRN For Clogged Feeding Tube Sodium Bicarbonate 650 mg 11/08/19 14:00 11/10/19 22:42 Sodium Bicarbonate FEEDTUBE 650 mg TID GIDEON Administration Sodium Chloride 10 ml 11/04/19 10:00 11/10/19 22:43 Sodium Chloride Flush Syringe 10 Ml IV 10 ml BID GIDEON Administration Sodium Chloride 10 ml 11/04/19 00:25 Sodium Chloride Flush Syringe 10 Ml IV PRN PRN LINE FLUSH Tamsulosin HCl 0.4 mg 11/06/19 10:00 11/10/19 09:53 Flomax PO 0.4 mg QDAY GIDEON Administration Nutrition/Malnutrition Assess - Dietary Evaluation Nutrition/Malnutrition Findings: Nutrition Notes Start: 11/04/19 09:16 Freq: Status: Active Protocol: Document 11/09/19 12:47 ALMA (Rec: 11/09/19 13:57 ALMA [id number]) Co-Sign 11/09/19 12:47 LM Nutrition Notes Initial or Follow up Reassessment Current Diagnosis Acute Kidney Injury, Malnutrition Other Pertinent Diagnosis Dehydration, AMS, SIRS Current Diet Promote 75ml/hr Labs/Tests Na 145 K 4 BUN 31 Pertinent Medications D5w at 75 ml/hr Height 5 ft 10 in Weight 70.1 kg [place] Body Weight (kg) 75.45 BMI 22.1 Weight Status Appropriate Subjective/Other Information F/u TF tolerance. Per RN, pt is tolerating TF at goal rate. Percent of energy/protein needs met: 100%/100% Burn Absent Trauma Absent GI Symptoms None Current % PO Negligible Minimum of two criteria Yes Energy Intake (severe) < or equal to 50% Estimated Energy Requirement > or equal to 5 days Reduced Hand Tile Maker Strength Measurably Reduced (severe) #1 Nutrition Diagnosis Malnutrition Diagnosis Progress(for reassessment Continues documentation) Is patient on ventilator? No Is Patient Ambulatory and/or Out of Bed No REE-([facility]-confined to bed) 1731.156 Calculation Used for Recommendations [facility] Additional Notes Protein needs are 95-119g (1.2 -1.5g/kg) Fluid needs are 1ml/kcal Nutrition Intervention Change Diet Order: TF Nutrition Support: Promote 1.0 at 75 ml/hr (goal rate) Flush 50 ml Kcal 1,800 Protein (gm) 112 Fluid (mL) 1,510 Goal #1 TF tolerance Anticipated Discharge Needs: Unable to determine at this time Follow-Up By: 11/14/19 Additional Comments F/u for stable TF
--- NOTE | 2019-11-11 08:07 | Progress Note ---
Assessment and Plan Hypernatremia: Acute renal failure likely pre-renal: Dehydration: Altered Mental status: SIRS: History of dementia: Plan: - resolved - can adjust D5W as needed, increase oral water drinking when needed -Strict I/Os monitoring will sign off. Casper Perdomo MD [phone] Subjective Date of service: 11/11/19 Principal diagnosis: Acute toxic metabolic encephalopathy Interval history: no overnight events Objective - Vital Signs Vital signs: Vital Signs - 12hr 11/10/19 11/10/19 11/11/19 20:08 22:38 06:10 Temperature 98.1 F 99.0 F Pulse Rate 74 69 Respiratory 20 18 Rate Blood Pressure 121/60 109/62 O2 Sat by Pulse 96 90 95 Oximetry - Lab 11/08/19 07:40 11/11/19 05:18 Most recent lab results Calcium 8.3 mg/dL (8.4-10.2) L 11/11/19 05:18 Medications & Allergies - Medications Allergies/Adverse Reactions: Allergies No Known Allergies Allergy (Unverified 01/31/16 13:51) Home Medications: Home Medications Medication Instructions Recorded Confirmed Last Taken Type Prednisone [predniSONE 10 mg 10 mg PO .TAPER #1 tab.ds.pk 02/02/16 11/04/19 Unknown Rx (6-Day Pack, 21 Tabs)] Amoxicillin/K Clav Tab [Augmentin 1 tab PO Q12HR #5 tab 02/03/16 11/04/19 Unknown Rx 875MG TAB] ALBUTEROL NEB's [Proventil 0.083% 2.5 mg IH Q3HRT PRN #30 nebu 02/04/16 11/04/19 Unknown Rx NEBS] Active Medications: Generic Name Dose Route Start Last Admin Trade Name Freq PRN Reason Stop Dose Admin Acetaminophen 650 mg 11/04/19 00:25 11/04/19 17:55 Tylenol PO 650 mg Q4H PRN Administration Pain MILD(1-3)/Fever >100.5/VALENTIN Amoxicillin 500 mg 11/10/19 08:30 11/11/19 06:44 Amoxicillin Oral Liqd FEEDTUBE 11/12/19 22:01 500 mg Q8HR GIDEON Administration Lipase/Protease/Amylase 1 each 11/07/19 11:03 Pancrebrian Panda 10,500 Unit FEEDTUBE PRN PRN For Clogged Feeding Tube Heparin Sodium (Porcine) 5,000 unit 11/04/19 06:00 11/11/19 06:44 Heparin SUB-Q 5,000 unit Q8HR GIDEON Administration Dextrose 1,000 mls @ 50 mls/hr 11/10/19 12:00 D5w IV DIRECT GIDEON Insulin Human Lispro 0 unit 11/08/19 17:00 11/11/19 06:43 Humalog SUB-Q Not Given Q6H [facility] Protocol Ondansetron HCl 4 mg 11/04/19 00:25 Zofran IV Q8H PRN Nausea And Vomiting Simple Syrup 15 ml 11/07/19 11:03 Simple Syrup FEEDTUBE PRN PRN Hypoglycemia Simple Syrup 30 ml 11/07/19 11:03 Simple Syrup FEEDTUBE PRN PRN Hypoglycemia Sodium Bicarbonate 325 mg 11/07/19 11:03 Sodium Bicarbonate FEEDTUBE PRN PRN For Clogged Feeding Tube Sodium Bicarbonate 650 mg 11/08/19 14:00 11/10/19 22:42 Sodium Bicarbonate FEEDTUBE 650 mg TID GIDEON Administration Sodium Chloride 10 ml 11/04/19 10:00 11/10/19 22:43 Sodium Chloride Flush Syringe 10 Ml IV 10 ml BID GIDEON Administration Sodium Chloride 10 ml 11/04/19 00:25 Sodium Chloride Flush Syringe 10 Ml IV PRN PRN LINE FLUSH Tamsulosin HCl 0.4 mg 11/06/19 10:00 11/10/19 09:53 Flomax PO 0.4 mg QDAY GIDEON Administration
[2019-11-11] MEDS: SODIUM BICARBONATE 650 MG TAB FEEDTUBE SCH ×3 (09:49→22:53)
[2019-11-11] MEDS: TAMSULOSIN 0.4 MG CAP PO SCH (09:49)
--- NOTE | 2019-11-11 14:38 | XRay Report ---
ABDOMEN AP PORTABLE SUPINE 1909 INDICATION: dobhoff placement COMPARISON: 11/07/2019 FINDINGS: The feeding tube is seen to enter the proximal stent stomach but is just below the GE junct ion, more withdrawn than on earlier study. For better security, it may be worthwhile to advance by 5 to 6 cm if possible. Signer Name: Chandler Mansfield MD Signed: 11/11/2019 2:33 PM Workstation Name: [id number]
--- NOTE | 2019-11-11 18:29 | Event Note ---
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 Tried calling sister, Traci Guo, for consent and explanation. Unfortunately, her Voice Mailbox was full.
[2019-11-12] MEDS: HEPARIN 5,000 UNIT/1 ML VIAL SUB-Q SCH ×3 (06:15→21:24)
[2019-11-12] MEDS: AMOXICILLIN 250 MG/10 ML ORAL SYRINGE FEEDTUBE SCH ×3 (06:16→21:24)
[2019-11-12 06:20] LABS: BUN/Creatinine Ratio 35; Blood Urea Nitrogen 28 mg/dL (9-20); Calcium 8.3 mg/dL (8.4-10.2); Hemolysis Index 6
[2019-11-12] MEDS: INSULIN LISPRO 100 UNIT/ML VIAL 3 mL SUB-Q SCH ×3 (06:32→16:50)
[2019-11-12] MEDS: SODIUM BICARBONATE 650 MG TAB FEEDTUBE SCH ×3 (07:44→20:52)
[2019-11-12] MEDS: TAMSULOSIN 0.4 MG CAP PO SCH (09:52)
--- NOTE | 2019-11-12 12:04 | Progress Note ---
Subjective Date of service: 11/12/19 Principal diagnosis: Acute toxic metabolic encephalopathy Interval history: Assessment and plan: Acute toxic metabolic encephalopathy. Patient with a sodium of 170 on admission and now 145. Continue IV fluids with D5 water until PEG tube is placed Patient is awake, alert but appears confused, he is oriented to name only Severe hypernatremia. -Secondary to dehydration/poor p.o. intake: improved Nephrology note reviewed Continue nasogastric tube feedings pending PEG placement SIRS. Patient meets criteria given the tachycardia, tachypnea and leukocytosis Blood cultures are negative. Urine cultures positive for enterococcus Acute renal failure.-: Secondary to dehydration improved with hydration Continue IV fluids until PEG tube is placed Hypokalemia.: Improved with potassium supplements Enterococcus UTI -Urine culture came back on 11/08/2019 positive for enterococcus -Patient is on ampicillin -Stop date 11/14 78-year-old male with history of dementia was brought in from a senior living today for changes in mental status which started today. Patient is unable to give any history and most of the history was gotten from the ER physician. There was said to be constant at the senior living and patient may have an underlying infection. Work-up in the emergency room reveals a leukocytosis of 18, hypernatremia of 170, elevated BUN and creatinine and slightly elevated lactic acid. Chest x-ray and urinalysis were within normal limits Patient is being treated for dehydration,SIRS. Was commenced on IV fluid and also placed on empiric IV antibiotics. 11/05/2019. Replete potassium. Hyponatremia has improved from 175> 171> 166--->156. Continue to monitor BMP closely. Nephrology following. 11/07/19; Patient was agitated and non verbal. Patient failed swallow evaluation and I order NG tube insertion and dietary consult. Increase free water. Patient was seen by psychiatry and appreciate recommendations. Disposition; per clinical course. Patient came from SNF but will discharge him back once he is stable and off NG tube feeding. 11/08/2019; patient's sodium is corrected . Patient has enterococcus UTI and started with ampicillin pending sensitivity and identification. Discussed with his sister Ms. Guo at [phone] 11/09/2019; patient failed swallow evaluation again and will continue with NG tube feeding, will do modified barium swallow. Enterococcus sensitive to penicillin and will continue with IV ampicillin. Management plan was discussed in detail with his sister Ms. Guo. 11/10/2019; patient is still on NG tube. UTI due to enterococcus sensitive to penicillin and was treated with IV ampicillin for 2 days and changed to p.o. amoxicillin [11/10/2019] to be given for 3 more days. Modified barium swallow was done and recommended PEG tube placement. I called his sister Ms. Guo at [phone] to update but did not apple picker her phone. I put a consult for GI to evaluate for PEG tube placement. 11/11/2019; patient is still on NG tube. UTI due to enterococcus sensitive to penicillin and was treated with IV ampicillin for 2 days and changed to p.o. amoxicillin [11/10/2019] to be given for 3 more days. Modified barium swallow was done and recommended PEG tube placement. I called his sister Ms. Guo at [phone] to update but did not apple picker her phone. I put a consult for GI to evaluate for PEG tube placement. 11/11 patient is awake, alert, confused, oriented to name only. No apparent distress. Lab results reviewed. GI note reviewed, awaiting PEG tube placement pending consent by the family Objective - Constitutional Vitals: Vital Signs - 12hr 11/12/19 11/12/19 04:38 10:00 Temperature 98.2 F Pulse Rate 69 Respiratory 16 20 Rate Blood Pressure 116/60 O2 Sat by Pulse 96 Oximetry General appearance: Present: no acute distress - EENT Eyes: PERRL, EOM intact ENT: hearing intact - Neck Neck: supple, normal ROM, no masses or JVD - Respiratory Respiratory effort: normal Respiratory: bilateral: CTA - Cardiovascular Rhythm: regular Heart Sounds: Present: S1 & S2 Extremities: No edema - Gastrointestinal General gastrointestinal: Present: soft, non-tender Rectal Exam: deferred - Genitourinary Male genitourinary: deferred - Integumentary Integumentary: clear - Neurologic Neurologic: moves all extremities - Psychiatric Psychiatric: other (Confused) - Labs CBC & Chem 7: 11/08/19 07:40 11/12/19 04:39 Labs: Abnormal lab results 11/11/19 11/11/19 11/12/19 Range/Units 18:16 23:15 04:39 Chloride 107.8 H (98-107) mmol/L BUN 28 H (9-20) mg/dL POC Glucose 138 H 155 H (70-105) Calcium 8.3 L (8.4-10.2) mg/dL 11/12/19 Range/Units 06:41 Chloride (98-107) mmol/L BUN (9-20) mg/dL POC Glucose 141 H (70-105) Calcium (8.4-10.2) mg/dL HEART Score - HEART Score Troponin: Troponin T < 0.010 ng/mL (0.00-0.029) 11/03/19 18:20
--- NOTE | 2019-11-12 17:11 | Consultation ---
History of Present Illness - Reason for Consult Consult date: 11/12/19 Dysphagia Requesting physician: PRIETO MAN - History of Present Illness 78 yo WM admitted from [place] with mental status and hypernatremia. He has been corrected, and has failed an MBS with deep penetration noted. GI consult requested for PEG placement. I spoke with pt's sister, Traci Guo, . Pt is in [place] due to fecal incontinence. Per sister, he has always been taciturn or laconic and does not speak much. In [place], he had regular visitations before. Sister unsure if there has been any change in mentation over the years, though does not know recently. Meds reviewed. Past History Past Medical History: other (Dementia??) Past Surgical History: Other (Hand surgery in childhood) Social history: single, other (Lives in Jail). denies: smoking, alcohol abuse Family history: other (Unknown) Medications and Allergies Allergies Allergy/AdvReac Type Severity Reaction Status Date / Time No Known Allergies Allergy Unverified 01/31/16 13:51 Home Medications Medication Instructions Recorded Confirmed Last Taken Type Prednisone [predniSONE 10 mg 10 mg PO .TAPER #1 tab.ds.pk 02/02/16 11/04/19 Unknown Rx (6-Day Pack, 21 Tabs)] Amoxicillin/K Clav Tab [Augmentin 1 tab PO Q12HR #5 tab 02/03/16 11/04/19 Unknown Rx 875MG TAB] ALBUTEROL NEB's [Proventil 0.083% 2.5 mg IH Q3HRT PRN #30 nebu 02/04/16 11/04/19 Unknown Rx NEBS] Active Meds: Active Medications Acetaminophen (Tylenol) 650 mg PO Q4H PRN PRN Reason: Pain MILD(1-3)/Fever >100.5/VALENTIN Last Admin: 11/04/19 17:55 Dose: 650 mg Documented by: Amoxicillin (Amoxicillin Oral Liqd) 500 mg FEEDTUBE Q8HR [facility]IDE[facility] Stop: 11/12/19 22:01 Last Admin: 11/12/19 13:40 Dose: 500 mg Documented by: Lipase/Protease/Amylase (Pancreaze Dr 10,500 Unit) 1 each FEEDTUBE PRN PRN PRN Reason: For Clogged Feeding Tube Heparin Sodium (Porcine) (Heparin) 5,000 unit SUB-Q Q8HR [facility] Last Admin: 11/12/19 13:40 Dose: 5,000 unit Documented by: Dextrose (D5w) 1,000 mls @ 50 mls/hr IV DIRECT [facility] Insulin Human Lispro (Humalog) 0 unit SUB-Q Q6H [facility]; Protocol Last Admin: 11/12/19 16:50 Dose: Not Given Documented by: Ondansetron HCl (Zofran) 4 mg IV Q8H PRN PRN Reason: Nausea And Vomiting Simple Syrup (Simple Syrup) 15 ml FEEDTUBE PRN PRN PRN Reason: Hypoglycemia Simple Syrup (Simple Syrup) 30 ml FEEDTUBE PRN PRN PRN Reason: Hypoglycemia Sodium Bicarbonate (Sodium Bicarbonate) 325 mg FEEDTUBE PRN PRN PRN Reason: For Clogged Feeding Tube Sodium Bicarbonate (Sodium Bicarbonate) 650 mg FEEDTUBE TID [facility] Last Admin: 11/12/19 13:40 Dose: 650 mg Documented by: Sodium Chloride (Sodium Chloride Flush Syringe 10 Ml) 10 ml IV BID [facility] Last Admin: 11/12/19 09:53 Dose: 10 ml Documented by: Sodium Chloride (Sodium Chloride Flush Syringe 10 Ml) 10 ml IV PRN PRN PRN Reason: LINE FLUSH Tamsulosin HCl (Flomax) 0.4 mg PO QDAY [facility] Last Admin: 11/12/19 09:52 Dose: 0.4 mg Documented by: Review of Systems ROS unobtainable: due to mental status Exam - Constitutional Vitals: Temp Pulse Resp BP Pulse Ox 97.0 F L 74 22 100/53 95 11/12/19 11:36 11/12/19 11:36 11/12/19 11:36 11/12/19 11:36 11/12/19 12:56 General appearance: Present: no acute distress, other (Looks alert, did answer a few questions, thin) - EENT Eyes: Present: PERRL, EOM intact ENT: hearing intact - Respiratory Respiratory effort: normal Respiratory: bilateral: CTA (anteriorly) - Cardiovascular Rhythm: regular Heart Sounds: Present: S1 & S2 - Extremities Extremities: No edema - Abdominal General gastrointestinal: Present: soft, non-tender Results - Labs CBC & Chem 7: 11/08/19 07:40 11/12/19 04:39 Labs: Abnormal lab results 11/11/19 11/11/19 11/12/19 Range/Units 18:16 23:15 04:39 Chloride 107.8 H (98-107) mmol/L BUN 28 H (9-20) mg/dL POC Glucose 138 H 155 H (70-105) Calcium 8.3 L (8.4-10.2) mg/dL 11/12/19 11/12/19 Range/Units 06:41 11:51 Chloride (98-107) mmol/L BUN (9-20) mg/dL POC Glucose 141 H 151 H (70-105) Calcium (8.4-10.2) mg/dL Assessment and Plan 1. Dysphagia - mild with no clear aspiration, though deep penetration on MBS. May have been due to hypernatremia and acute changes, and may resolve spontaneously. May also be worse due to depression. Pt's sister uncertain of dx of dementia. - options are: --- to retry MBS and if he is better, allow po intake --- place PEG --- comfort measures only, and discharge back to [place] Sister would like to come and see pt, and then decide with her and another sibling. Will request visitation be allowed tomorrow.
[2019-11-12] MEDS: DEXTROSE 5% IN WATER 1,000 ML IV SCH (20:53)
[2019-11-13] MEDS: INSULIN LISPRO 100 UNIT/ML VIAL 3 mL SUB-Q SCH ×4 (00:14→17:56)
[2019-11-13] MEDS: HEPARIN 5,000 UNIT/1 ML VIAL SUB-Q SCH ×3 (06:38→21:44)
[2019-11-13 07:50] LABS: Blood Urea Nitrogen 27 mg/dL (9-20); Calcium 8.1 mg/dL (8.4-10.2); Hemolysis Index 3
[2019-11-13 07:53] LABS: BUN/Creatinine Ratio 39
[2019-11-13] MEDS: SODIUM BICARBONATE 650 MG TAB FEEDTUBE SCH ×3 (08:47→21:44)
[2019-11-13] MEDS: TAMSULOSIN 0.4 MG CAP PO SCH (09:21)
[2019-11-13] MEDS: ACETAMINOPHEN 325 MG TAB PO PRN (09:26)
--- NOTE | 2019-11-13 10:14 | Progress Note ---
Subjective Date of service: 11/13/19 Principal diagnosis: Acute toxic metabolic encephalopathy Interval history: Assessment and plan: Acute toxic metabolic encephalopathy. Patient with a sodium of 170 on admission and now 145. Continue IV fluids with D5 water until PEG tube is placed Patient is awake, alert but appears confused, he is oriented to name only, he is moaning constantly Severe hypernatremia. -Secondary to dehydration/poor p.o. intake: improved Nephrology note reviewed Continue nasogastric tube feedings pending PEG placement GI note reviewed Family to decide on PEG tube placement after visitation today SIRS. Patient meets criteria given the tachycardia, tachypnea and leukocytosis Blood cultures are negative. Urine cultures positive for enterococcus Acute renal failure.-: Secondary to dehydration improved with hydration Continue IV fluids until PEG tube is placed Hypokalemia.: Improved with potassium supplements Enterococcus UTI -Urine culture came back on 11/08/2019 positive for enterococcus -Patient is on ampicillin -Stop date 11/14 HPI: 78-year-old male with history of dementia was brought in from a longterm today for changes in mental status which started today. Patient is unable to give any history and most of the history was gotten from the ER physician. There was said to be constant at the longterm and patient may have an underlying infection. Work-up in the emergency room reveals a leukocytosis of 18, hypernatremia of 170, elevated BUN and creatinine and slightly elevated lactic acid. Chest x-ray and urinalysis were within normal limits Patient is being treated for dehydration,SIRS. Was commenced on IV fluid and also placed on empiric IV antibiotics. 11/05/2019. Replete potassium. Hyponatremia has improved from 175> 171> 166--->156. Continue to monitor BMP closely. Nephrology following. 11/07/19; Patient was agitated and non verbal. Patient failed swallow evaluation and I order NG tube insertion and dietary consult. Increase free water. Patient was seen by psychiatry and appreciate recommendations. Disposition; per clinical course. Patient came from SNF but will discharge him back once he is stable and off NG tube feeding. 11/08/2019; patient's sodium is corrected . Patient has enterococcus UTI and started with ampicillin pending sensitivity and identification. Discussed with his sister Ms. Guo at [phone] 11/09/2019; patient failed swallow evaluation again and will continue with NG tube feeding, will do modified barium swallow. Enterococcus sensitive to penic illin and will continue with IV ampicillin. Management plan was discussed in detail with his sister Ms. Guo. 11/10/2019; patient is still on NG tube. UTI due to enterococcus sensitive to penicillin and was treated with IV ampicillin for 2 days and changed to p.o. amoxicillin [11/10/2019] to be given for 3 more days. Modified barium swallow was done and recommended PEG tube placement. I called his sister Ms. Guo at [phone] to update but did not quill picking machine operator her phone. I put a consult for GI to evaluate for PEG tube placement. 11/11/2019; patient is still on NG tube. UTI due to enterococcus sensitive to penicillin and was treated with IV ampicillin for 2 days and changed to p.o. amoxicillin [11/10/2019] to be given for 3 more days. Modified barium swallow was done and recommended PEG tube placement. I called his sister Ms. Guo at [phone] to update but did not quill picking machine operator her phone. I put a consult for GI to evaluate for PEG tube placement. 11/11 patient is awake, alert, confused, oriented to name only. No apparent distress. Lab results reviewed. GI note reviewed, awaiting PEG tube placement pending consent by the family 11/12 patient is awake and alert and oriented to name only, constantly moaning, no history is possible, GI note reviewed, family to decide on PEG tube placement after visitation today Objective - Constitutional Vitals: Vital Signs - 12hr 11/13/19 11/13/19 04:15 09:26 Temperature 98.8 F Pulse Rate 70 Respiratory 20 20 Rate Blood Pressure 136/45 O2 Sat by Pulse 96 Oximetry General appearance: Present: no acute distress, other (Confused) - EENT Eyes: PERRL, EOM intact ENT: hearing intact - Neck Neck: supple, normal ROM, no masses or JVD - Respiratory Respiratory effort: normal Respiratory: bilateral: CTA - Cardiovascular Rhythm: regular Extremities: No edema - Gastrointestinal General gastrointestinal: Present: soft, non-tender Rectal Exam: deferred - Genitourinary Male genitourinary: deferred - Integumentary Integumentary: clear - Musculoskeletal Musculoskeletal: generalized weakness - Neurologic Neurologic: moves all extremities, other (Limited neuro exam secondary to confused state) - Psychiatric Psychiatric: other (Flat affect) - Labs CBC & Chem 7: 11/08/19 07:40 11/13/19 06:45 Labs: Abnormal lab results 11/12/19 11/12/19 11/13/19 Range/Units 11:51 23:53 05:53 BUN (9-20) mg/dL Creatinine (0.8-1.3) mg/dL Glucose (75-100) mg/dL POC Glucose 151 H 158 H 152 H (70-105) Calcium (8.4-10.2) mg/dL 11/13/19 Range/Units 06:45 BUN 27 H (9-20) mg/dL Creatinine 0.7 L (0.8-1.3) mg/dL Glucose 111 H (75-100) mg/dL POC Glucose (70-105) Calcium 8.1 L (8.4-10.2) mg/dL HEART Score - HEART Score Troponin: Troponin T < 0.010 ng/mL (0.00-0.029) 11/03/19 18:20
--- NOTE | 2019-11-13 13:45 | Progress Note ---
Assessment and Plan 1. Dysphagia - mild with no clear aspiration, though deep penetration on MBS. May have been due to hypernatremia and acute changes, and may resolve spontaneously. May also be worse due to depression. Pt's sister uncertain of dx of dementia. - options are: --- to retry MBS and if he is better, allow po intake --- place PEG --- comfort measures only, and discharge back to [place] Sister coming in today. Will ask Speech for reevaluation since mental status better. Sister would like to come and see pt, and then decide with her and another sibling. Subjective Date of service: 11/13/19 Principal diagnosis: Acute toxic metabolic encephalopathy Interval history: Pt more alert today. Sporadically answers questions. No distress. Objective - Constitutional Vitals: Vital Signs - 12hr 11/13/19 11/13/19 11/13/19 04:15 09:26 10:00 Temperature 98.8 F Pulse Rate 70 Pulse Rate [ 20 L Right Radial] Respiratory 20 20 20 Rate Blood Pressure 136/45 O2 Sat by Pulse 96 95 Oximetry 11/13/19 11:28 Temperature 98.3 F Pulse Rate 85 Pulse Rate [ Right Radial] Respiratory 24 Rate Blood Pressure 125/51 O2 Sat by Pulse 98 Oximetry General appearance: Present: no acute distress - EENT Eyes: PERRL, EOM intact ENT: hearing intact - Respiratory Respiratory effort: normal - Gastrointestinal General gastrointestinal: Present: soft, non-tender - Labs CBC & Chem 7: 11/08/19 07:40 11/13/19 06:45 Labs: Abnormal lab results 11/12/19 11/13/19 11/13/19 Range/Units 23:53 05:53 06:45 BUN 27 H (9-20) mg/dL Creatinine 0.7 L (0.8-1.3) mg/dL Glucose 111 H (75-100) mg/dL POC Glucose 158 H 152 H (70-105) Calcium 8.1 L (8.4-10.2) mg/dL 11/13/19 Range/Units 12:28 BUN (9-20) mg/dL Creatinine (0.8-1.3) mg/dL Glucose (75-100) mg/dL POC Glucose 125 H (70-105) Calcium (8.4-10.2) mg/dL Medications & Allergies - Medications Allergies/Adverse Reactions: Allergies No Known Allergies Allergy (Unverified 01/31/16 13:51) Home Medications: Home Medications Medication Instructions Recorded Confirmed Last Taken Type Prednisone [predniSONE 10 mg 10 mg PO .TAPER #1 tab.ds.pk 02/02/16 11/04/19 Unknown Rx (6-Day Pack, 21 Tabs)] Amoxicillin/K Clav Tab [Augmentin 1 tab PO Q12HR #5 tab 02/03/16 11/04/19 Unknown Rx 875MG TAB] ALBUTEROL NEB's [Proventil 0.083% 2.5 mg IH Q3HRT PRN #30 nebu 02/04/16 11/04/19 Unknown Rx NEBS] Active Medications: Generic Name Dose Route Start Last Admin Trade Name Freq PRN Reason Stop Dose Admin Acetaminophen 650 mg 11/04/19 00:25 11/13/19 09:26 Tylenol PO 650 mg Q4H PRN Administration Pain MILD(1-3)/Fever >100.5/VALENTIN Lipase/Protease/Amylase 1 each 11/07/19 11:03 Pancreaze 10,500 Unit FEEDTUBE PRN PRN For Clogged Feeding Tube Heparin Sodium (Porcine) 5,000 unit 11/04/19 06:00 11/13/19 06:38 Heparin SUB-Q 5,000 unit Q8HR [facility] Administration Dextrose 1,000 mls @ 50 mls/hr 11/10/19 12:00 11/12/19 20:53 D5w IV 50 mls/hr DIRECT [facility] Administration Insulin Human Lispro 0 unit 11/08/19 17:00 11/13/19 06:48 Humalog SUB-Q Not Given Q6H [facility] Protocol Ondansetron HCl 4 mg 11/04/19 00:25 Zofran IV Q8H PRN Nausea And Vomiting Simple Syrup 15 ml 11/07/19 11:03 Simple Syrup FEEDTUBE PRN PRN Hypoglycemia Simple Syrup 30 ml 11/07/19 11:03 Simple Syrup FEEDTUBE PRN PRN Hypoglycemia Sodium Bicarbonate 325 mg 11/07/19 11:03 Sodium Bicarbonate FEEDTUBE PRN PRN For Clogged Feeding Tube Sodium Bicarbonate 650 mg 11/08/19 14:00 11/13/19 08:47 Sodium Bicarbonate FEEDTUBE 650 mg TID GIDEON Administration Sodium Chloride 10 ml 11/04/19 10:00 11/13/19 09:21 Sodium Chloride Flush Syringe 10 Ml IV 10 ml BID [facility] Administration Sodium Chloride 10 ml 11/04/19 00:25 Sodium Chloride Flush Syringe 10 Ml IV PRN PRN LINE FLUSH Tamsulosin HCl 0.4 mg 11/06/19 10:00 11/13/19 09:21 Flomax PO 0.4 mg QDAY [facility] Administration HEART Score - HEART Score Troponin: Troponin T < 0.010 ng/mL (0.00-0.029) 11/03/19 18:20
[2019-11-13] MEDS: DEXTROSE 5% IN WATER 1,000 ML IV SCH (21:43)
[2019-11-13] MEDS ORDERED: KETOROLAC 30 MG/1 ML INJ IV ONE (22:05)
--- NOTE | 2019-11-14 03:02 | XRay Report ---
XR abdomen 1V ap INDICATION: wants to know position of ng tube. COMPARISON: None available. FINDINGS: The tip of the NG tube projects over the distal stomach. Signer Name: Robert Miranda MD Signed: 11/14/2019 2:57 AM Workstation Name: [email or web address]
[2019-11-14] MEDS: INSULIN LISPRO 100 UNIT/ML VIAL 3 mL SUB-Q SCH ×4 (03:33→17:43)
--- NOTE | 2019-11-14 05:18 | XRay Report ---
XR abdomen 1V ap INDICATION: ng tube placement. COMPARISON: Exam done earlier on 11/14/2019 FINDINGS: The tip of the feeding tube projects over the gastric fundus. Signer Name: Robert Miranda MD Signed: 11/14/2019 5:14 AM Workstation Name: [id number]
[2019-11-14] MEDS: HEPARIN 5,000 UNIT/1 ML VIAL SUB-Q SCH ×3 (05:49→21:17)
[2019-11-14] MEDS: SODIUM BICARBONATE 650 MG TAB FEEDTUBE SCH ×3 (08:35→21:18)
[2019-11-14] MEDS: TAMSULOSIN 0.4 MG CAP PO SCH (09:25)
--- NOTE | 2019-11-14 10:56 | Event Note ---
Date: 11/14/19 Awaiting family decision and plan as regards PEG.
[2019-11-14 12:59] LABS: BUN/Creatinine Ratio 31; Blood Urea Nitrogen 28 mg/dL (9-20); Calcium 8.3 mg/dL (8.4-10.2); Hemolysis Index 9
--- NOTE | 2019-11-14 16:21 | Progress Note ---
Assessment and Plan - Patient Problems (1) SIRS (systemic inflammatory response syndrome) Current Visit: Yes Status: Acute Plan to address problem: Present on admission Presented with tachycardia, tachypnea and leukocytosis 11/02 blood cultures negative 11/06 urine culture positive for enterococcus urinary tract infection, completed antibiotic therapy (2) Acute metabolic encephalopathy Current Visit: Yes Status: Acute Plan to address problem: Presented with altered mental status Was found to be elevated hyponatremic on admission with sodium of 170 which has now resolved Patient has had D5 W infusing until PEG tube is placed 11/02 CTH: No hemorrhage or stroke mimics,encephalomalacia is seen in the corpus stratum bilaterally with compensatory enlargement of the frontal horns, extensive periventricular low attenuation areas are seen due to chronic small vessel disease, focal small low-attenuation deep hemispheric white matter lesions are seen coronal due to chronic small vessel disease, small left thalamic lacune is seen, it is difficult to determine the age of this lacune, chronic ischemic changes are seen in the paul, cerebellar hemispheres are normal, mild cortical involution is seen. 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 Similar type findings seen on prior. Otherwise, no acute hemorrhage, mass effect, midline shift, hydrocephalus, or acute, large territorial infarct. Mild to moderate cerebral and mild cerebellar atrophy. Mild to moderate degree of hippocampal atrophy suggested bilaterally. There are mode rate, confluent areas of decreased attenuation in the white matter of the cerebral hemispheres, as well as the gangliocapsular regions. These are nonspecific findings and may be related to microangiopathy (hypertension, diabetes, atherosclerosis), given the patient's age. It might be difficult to ev aluate for small areas of ischemia without diffusion imaging by MRI. (3) UTI (urinary tract infection) due to Enterococcus Current Visit: Yes Status: Acute Plan to address problem: 11/06 urine culture positive for enterococcus urinary tract infection, completed antibiotic therapy (4) Hypernatremia Current Visit: Yes Status: Acute Plan to address problem: Admission sodium 176, 11/13 sodium 136 D5W infusion until PEG tube placement TF via NG tube Secondary to dehydration/poor p.o. intake: improved Trend BMP (5) CHANEL (acute kidney injury) Current Visit: Yes Status: Resolved Plan to address problem: Admit creatinine 1.4 which trended up to 1.5 and trended down to 0.07 now is 0.09 on 11/13 Continue to vasomotor nephropathy decreased p.o. intake, dehydration Patient is on D5W until blood tube placements Free water flush per NG tube Trend BMP (6) DVT prophylaxis Current Visit: Yes Status: Acute Plan to address problem: Subcu heparin SCDs to bilateral lower extremities while in bed History Interval history: 78-year-old male with history of dementia [facility] for changes in mental status. Patient is unable to give any history and most of the history was gotten from the ER physician. There was said to be constant at the prison and patient may have an underlying infection. Work- up in the emergency room revealed leukocytosis of 18, hypernatremia of 170, elevated BUN and creatinine and slightly elevated lactic acid. Chest x-ray and urinalysis were within normal limits Patient is being treated for dehydration,SIRS and was commenced on IV fluid and also placed on empiric IV antibiotics. On 11/07 his urine culture grew out enterococcus and 11/11 he was switched from penicillin to ampicillin to p.o. amoxicillin till 11/12. On 11/10 modified barium swallow was completed and recommendation was a PEG tube placement. GI was consulted for placement. However we have been trying to get in contact with the patient's sister (Ms. Guo at [phone]) without success. On 11/12 the patient sister supposed to come to the bedside for visitation and surgeon for PEG placement however it did not take place. Dr. Naranjo will contact his sister today on 11/13 for decision about PEG placement. 11/05/2019. Replete potassium. Hyponatremia has improved from 175> 171> 166--->156. Continue to monitor BMP closely. Nephrology following. 11/07/19; Patient was agitated and non verbal. Patient failed swallow evaluation and I order NG tube insertion and dietary consult. Increase free water. Patient was seen by psychiatry and appreciate recommendations. Disposition; per clinical course. Patient came from SNF but will discharge him back once he is stable and off NG tube feeding. 11/08/2019; patient's sodium is corrected . Patient has enterococcus UTI and started with ampicillin pending sensitivity and identification. Discussed with his sister Ms. Guo at [phone] 11/09/2019; patient failed swallow evaluation again and will continue with NG tube feeding, will do modified barium swallow. Enterococcus sensitive to penicillin and will continue with IV ampicillin. Management plan was discussed in detail with his sister Ms. Guo. 11/10/2019; patient is still on NG tube. UTI due to enterococcus sensitive to penicillin and was treated with IV ampicillin for 2 days and changed to p.o. amoxicillin [11/10/2019] to be given for 3 more days. Modified barium swallow was done and recommended PEG tube placement. I called his sister Ms. Guo at [phone] to update but did not brick picker her phone. I put a consult for GI to evaluate for PEG tube placement. 11/11/2019; patient is still on NG tube. UTI due to enterococcus sensitive to penicillin and was treated with IV ampicillin for 2 days and changed to p.o. amoxicillin [11/10/2019] to be given for 3 more days. Modified barium swallow was done and recommended PEG tube placement. I called his sister Ms. Guo at [phone] to update but did not brick picker her phone. I put a consult for GI to evaluate for PEG tube placement. 11/11 patient is awake, alert, confused, oriented to name only. No apparent distress. Lab results reviewed. GI note reviewed, awaiting PEG tube placement pending consent by the family 11/12 patient is awake and alert and oriented to name only, constantly moaning, no history is possible, GI note reviewed, family to decide on PEG tube placement after visitation today Hospitalist Physical - Constitutional Vitals: Temp Pulse Resp BP Pulse Ox 97.7 F 45 L 18 101/50 91 11/14/19 11:42 11/14/19 11:42 11/14/19 11:42 11/14/19 11:42 11/14/19 11:42 General appearance: Present: no acute distress - EENT Eyes: Present: PERRL ENT: poor dentition - Neck Neck: Present: supple - Respiratory Respiratory effort: normal Respiratory: bilateral: CTA - Cardiovascular Rhythm: regular Heart Sounds: Present: S1 & S2. Absent: systolic murmur, diastolic murmur - Extremities Extremities: no ischemia, pulses intact, pulses symmetrical, No edema, normal temperature, normal color, Full ROM - Abdominal General gastrointestinal: soft, non-tender, non-distended, normal bowel sounds - Integumentary Integumentary: Present: clear, warm, dry - Psychiatric Psychiatric: other (Patient is nonverbal however he does follow commands) - Neurologic Neurologic: no focal deficits, moves all extremities HEART Score - HEART Score Troponin: Troponin T < 0.010 ng/mL (0.00-0.029) 11/03/19 18:20 Results - Labs CBC & Chem 7: 11/08/19 07:40 11/14/19 11:59 Labs: Laboratory Last Values WBC 12.3 K/mm3 (4.5-11.0) H 11/08/19 07:40 RBC 4.02 M/mm3 (3.65-5.03) 11/08/19 07:40 Hgb 12.3 gm/dl (11.8-15.2) 11/08/19 07:40 Hct 38.6 % (35.5-45.6) 11/08/19 07:40 MCV 96 fl (84-94) H 11/08/19 07:40 MCH 31 pg (28-32) 11/08/19 07:40 MCHC 32 % (32-34) 11/08/19 07:40 RDW 15.6 % (13.2-15.2) H 11/08/19 07:40 Plt Count 145 K/mm3 (140-440) 11/08/19 07:40 Lymph % (Auto) 7.0 % (13.4-35.0) L 11/07/19 05:00 [place] % (Auto) 3.8 % (0.0-7.3) 11/07/19 05:00 Eos % (Auto) 0.1 % (0.0-4.3) 11/07/19 05:00 Baso % (Auto) 0.2 % (0.0-1.8) 11/07/19 05:00 Lymph # 0.9 K/mm3 (1.2-5.4) L 11/07/19 05:00 [place] # 0.5 K/mm3 (0.0-0.8) 11/07/19 05:00 Eos # 0.0 K/mm3 (0.0-0.4) 11/07/19 05:00 Baso # 0.0 K/mm3 (0.0-0.1) 11/07/19 05:00 Seg Neutrophils % 88.9 % (40.0-70.0) H 11/07/19 05:00 Add Manual Diff Complete 11/08/19 07:40 Total Counted 100 11/08/19 07:40 Seg Neutrophils # 11.7 K/mm3 (1.8-7.7) H 11/07/19 05:00 Seg Neuts % (Manual) 89.0 % (40.0-70.0) H 11/08/19 07:40 Band Neutrophils % 0 % 11/08/19 07:40 Lymphocytes % (Manual) 6.0 % (13.4-35.0) L 11/08/19 07:40 Reactive Lymphs % (Man) 0 % 11/08/19 07:40 Monocytes % (Manual) 4.0 % (0.0-7.3) 11/08/19 07:40 Eosinophils % (Manual) 0 % (0.0-4.3) 11/08/19 07:40 Basophils % (Manual) 0 % (0.0-1.8) 11/08/19 07:40 Metamyelocytes % 1.0 % 11/08/19 07:40 Myelocytes % 0 % 11/08/19 07:40 Promyelocytes % 0 % 11/08/19 07:40 Blast Cells % 0 % 11/08/19 07:40 Nucleated RBC % Not Reportable 11/08/19 07:40 Seg Neutrophils # Man 10.9 K/mm3 (1.8-7.7) H 11/08/19 07:40 Band Neutrophils # 0.0 K/mm3 11/08/19 07:40 Lymphocytes # (Manual) 0.7 K/mm3 (1.2-5.4) L 11/08/19 07:40 Abs React Lymphs (Man) 0.0 K/mm3 11/08/19 07:40 Monocytes # (Manual) 0.5 K/mm3 (0.0-0.8) 11/08/19 07:40 Eosinophils # (Manual) 0.0 K/mm3 (0.0-0.4) 11/08/19 07:40 Basophils # (Manual) 0.0 K/mm3 (0.0-0.1) 11/08/19 07:40 Metamyelocytes # 0.1 K/mm3 11/08/19 07:40 Myelocytes # 0.0 K/mm3 11/08/19 07:40 Promyelocytes # 0.0 K/mm3 11/08/19 07:40 Blast Cells # 0.0 K/mm3 11/08/19 07:40 WBC Morphology Not Reportable 11/08/19 07:40 Hypersegmented Neuts Not Reportable 11/08/19 07:40 Hyposegmented Neuts Not Reportable 11/08/19 07:40 Hypogranular Neuts Not Reportable 11/08/19 07:40 Smudge Cells Not Reportable 11/08/19 07:40 Toxic Granulation Not Reportable 11/08/19 07:40 Toxic Vacuolation Not Reportable 11/08/19 07:40 Dohle Bodies Not Reportable 11/08/19 07:40 Pelger-Huet Anomaly Not Reportable 11/08/19 07:40 Emile Rods Not Reportable 11/08/19 07:40 Platelet Estimate Consistent w auto 11/08/19 07:40 Clumped Platelets Not Reportable 11/08/19 07:40 Plt Clumps, EDTA Not Reportable 11/08/19 07:40 Large Platelets Not Reportable 11/08/19 07:40 Giant Platelets Not Reportable 11/08/19 07:40 Platelet Satelliting Not Reportable 11/08/19 07:40 Plt Morphology Comment Not Reportable 11/08/19 07:40 RBC Morphology Normal 11/08/19 07:40 Dimorphic RBCs Not Reportable 11/08/19 07:40 Polychromasia Not Reportable 11/08/19 07:40 Hypochromasia Not Reportable 11/08/19 07:40 Poikilocytosis Not Reportable 11/08/19 07:40 Anisocytosis Not Reportable 11/08/19 07:40 Microcytosis Not Reportable 11/08/19 07:40 Macrocytosis Not Reportable 11/08/19 07:40 Spherocytes Not Reportable 11/08/19 07:40 Pappenheimer Bodies Not Reportable 11/08/19 07:40 Sickle Cells Not Reportable 11/08/19 07:40 Target Cells Not Reportable 11/08/19 07:40 Tear Drop Cells Not Reportable 11/08/19 07:40 Ovalocytes Not Reportable 11/08/19 07:40 Helmet Cells Not Reportable 11/08/19 07:40 [place] Bodies Not Reportable 11/08/19 07:40 [place] Rings Not Reportable 11/08/19 07:40 [place] Cells Not Reportable 11/08/19 07:40 Bite Cells Not Reportable 11/08/19 07:40 Crenated Cell Not Reportable 11/08/19 07:40 Elliptocytes Not Reportable 11/08/19 07:40 Acanthocytes (Spur) Not Reportable 11/08/19 07:40 Rouleaux Not Reportable 11/08/19 07:40 Hemoglobin C Crystals Not Reportable 11/08/19 07:40 Schistocytes Not Reportable 11/08/19 07:40 Malaria parasites Not Reportable 11/08/19 07:40 Jose Alberto Bodies Not Reportable 11/08/19 07:40 Hem Pathologist Commnt No 11/08/19 07:40 PT 16.1 Sec. (12.2-14.9) H 11/05/19 07:08 INR 1.26 (0.87-1.13) H 11/05/19 07:08 APTT 26.2 Sec. (24.2-36.6) 11/03/19 16:24 Sodium 136 mmol/L (137-145) L 11/14/19 11:59 Potassium 4.4 mmol/L (3.6-5.0) 11/14/19 11:59 Chloride 100.9 mmol/L (98-107) 11/14/19 11:59 Carbon Dioxide 25 mmol/L (22-30) 11/14/19 11:59 Anion Gap 15 mmol/L 11/14/19 11:59 BUN 28 mg/dL (9-20) H 11/14/19 11:59 Creatinine 0.9 mg/dL (0.8-1.3) 11/14/19 11:59 Estimated GFR > 60 ml/min 11/14/19 11:59 BUN/Creatinine Ratio 31 % 11/14/19 11:59 Glucose 109 mg/dL (75-100) H 11/14/19 11:59 POC Glucose 90 (70-105) 11/14/19 12:38 Lactic Acid 1.70 mmol/L (0.7-2.0) 11/03/19 18:20 Calcium 8.3 mg/dL (8.4-10.2) L 11/14/19 11:59 Total Bilirubin 0.50 mg/dL (0.1-1.2) 11/03/19 16:24 AST 57 units/L (5-40) H 11/03/19 16:24 ALT 27 units/L (7-56) 11/03/19 16:24 Alkaline Phosphatase 79 units/L (35-129) 11/03/19 16:24 Magnesium 2.30 mg/dL (1.7-2.3) 11/12/19 04:39 Troponin T < 0.010 ng/mL (0.00-0.029) 11/03/19 18:20 NT-Pro-B Natriuret Pep 1532 pg/mL (0-900) H 11/03/19 16:24 Total Protein 7.6 g/dL (6.3-8.2) 11/03/19 16:24 Albumin 2.5 g/dL (3.9-5) L 11/03/19 16:24 Albumin/Globulin Ratio 0.5 % 11/03/19 16:24 Lipase 36 units/L (13-60) 11/03/19 16:24 Urine Color Pam (Yellow) 11/07/19 06:55 Urine Turbidity Turbid (Clear) 11/07/19 06:55 Urine pH 5.0 (5.0-7.0) 11/07/19 06:55 Ur Specific [place] 1.016 (1.003-1.030) 11/07/19 06:55 Urine Protein 30 mg/dl mg/dL (Negative) 11/07/19 06:55 Urine Glucose (UA) Neg mg/dL (Negative) 11/07/19 06:55 Urine Ketones Neg mg/dL (Negative) 11/07/19 06:55 Urine Blood Mod (Negative) 11/07/19 06:55 Urine Nitrite Neg (Negative) 11/07/19 06:55 Urine Bilirubin Neg (Negative) 11/07/19 06:55 Urine Urobilinogen 4.0 mg/dL (<2.0) 11/07/19 06:55 Ur Leukocyte Esterase Mod (Negative) 11/07/19 06:55 Urine WBC (Auto) 27.0 /HPF (0.0-6.0) H 11/07/19 06:55 Urine RBC (Auto) 12.0 /HPF (0.0-6.0) 11/07/19 06:55 U Epithel Cells (Auto) < 1.0 /HPF (0-13.0) 11/07/19 06:55 Urine Yeast (Budding) Few /HPF 11/03/19 16:29 Uric Acid Crystals 1+ 11/07/19 06:55 Urine Mucus 3+ /HPF 11/07/19 06:55 Urine Opiates Screen Presumptive negative 11/03/19 16:29 Urine Methadone Screen Presumptive negative 11/03/19 16:29 Ur Barbiturates Screen Presumptive negative 11/03/19 16:29 Ur Phencyclidine Scrn Presumptive negative 11/03/19 16:29 Ur Amphetamines Screen Presumptive negative 11/03/19 16:29 U Benzodiazepines Scrn Presumptive negative 11/03/19 16:29 Urine Cocaine Screen Presumptive negative 11/03/19 16:29 U Marijuana (THC) Screen Presumptive negative 11/03/19 16:29 Drugs of Abuse Note Disclamer 11/03/19 16:29 Coronavirus (PCR) Negative (Negative) 11/04/19 09:56 [place]/IV: Voiding Method Indwelling Catheter IV Catheter Type [Left INT / Saline Lock Antecubital] IV Catheter Type [Right Upper INT / Saline Lock arm] IV Catheter Type [Left Forearm INT / Saline Lock ] Active Medications - Current Medications Current Medications: Generic Name Dose Route Start Last Admin Trade Name Freq PRN Reason Stop Dose Admin Acetaminophen 650 mg 11/04/19 00:25 11/13/19 09:26 Tylenol PO 650 mg Q4H PRN Administration Pain MILD(1-3)/Fever >100.5/VALENTIN Lipase/Protease/Amylase 1 each 11/07/19 11:03 11/13/19 21:44 Pancreazizt Panda 10,500 Unit FEEDTUBE 1 each PRN PRN Administration For Clogged Feeding Tube Heparin Sodium (Porcine) 5,000 unit 11/04/19 06:00 11/14/19 05:49 Heparin SUB-Q 5,000 unit Q8HR GIDEON Administration Dextrose 1,000 mls @ 50 mls/hr 11/10/19 12:00 11/13/19 21:43 D5w IV 50 mls/hr DIRECT GIDEON Administration Insulin Human Lispro 0 unit 11/08/19 17:00 11/14/19 12:31 Humalog SUB-Q Not Given Q6H [facility] Protocol Ondansetron HCl 4 mg 11/04/19 00:25 Zofran IV Q8H PRN Nausea And Vomiting Simple Syrup 15 ml 11/07/19 11:03 Simple Syrup FEEDTUBE PRN PRN Hypoglycemia Simple Syrup 30 ml 11/07/19 11:03 Simple Syrup FEEDTUBE PRN PRN Hypoglycemia Sodium Bicarbonate 325 mg 11/07/19 11:03 Sodium Bicarbonate FEEDTUBE PRN PRN For Clogged Feeding Tube Sodium Bicarbonate 650 mg 11/08/19 14:00 11/14/19 14:51 Sodium Bicarbonate FEEDTUBE Not Given TID GIDEON Sodium Chloride 10 ml 11/04/19 10:00 11/14/19 09:25 Sodium Chloride Flush Syringe 10 Ml IV 10 ml BID GIDEON Administration Sodium Chloride 10 ml 11/04/19 00:25 Sodium Chloride Flush Syringe 10 Ml IV PRN PRN LINE FLUSH Tamsulosin HCl 0.4 mg 11/06/19 10:00 11/14/19 09:25 Flomax PO 0.4 mg QDAY GIDEON Administration Nutrition/Malnutrition Assess - Dietary Evaluation Nutrition/Malnutrition Findings: Nutrition Notes Start: 11/04/19 09:16 Freq: Status: Active Protocol: Document 11/14/19 13:13 ALMA (Rec: 11/14/19 13:17 ALMA [id number]) Co-Sign 11/14/19 13:13 LM Nutrition Notes Initial or Follow up Reassessment Current Diagnosis Acute Kidney Injury, Malnutrition Other Pertinent Diagnosis Dehydration, AMS, SIRS Current Diet Promote 75ml/hr Labs/Tests Na 137 K 4.7 BUN 27 Pertinent Medications D5W at 50ml/hr Height 5 ft 10 in Weight 69.4 kg [place] Body Weight (kg) 75.45 BMI 21.9 Weight change and time frame Wt change noted Weight Status Underweight Subjective/Other Information F/u TF tolerance. Per RN, pt's NGT pulled out. Noted family coming to discuss PEG. Percent of energy/protein needs met: 0%/0% Burn Absent Trauma Absent GI Symptoms None Current % PO Negligible Minimum of two criteria Yes Energy Intake (severe) < or equal to 50% Estimated Energy Requirement > or equal to 5 days Reduced Operations Engineer Strength Measurably Reduced (severe) #1 Nutrition Diagnosis Malnutrition Diagnosis Progress(for reassessment Continues documentation) Is patient on ventilator? No Is Patient Ambulatory and/or Out of Bed No REE-([facility]-confined to bed) 8389. Calculation Used for Recommendations [facility] Additional Notes Protein needs are 95-119g (1.2 -1.5g/kg) Fluid needs are 1ml/kcal Nutrition Intervention Change Diet Order: TF Nutrition Support: Promote 1.0 at 75 ml/hr (goal rate) Flush 50 ml Kcal 1,800 Protein (gm) 112 Fluid (mL) 1,510 Goal #1 TF tolerance Anticipated Discharge Needs: TF Follow-Up By: 11/17/19 Additional Comments F/u PEG placement and TF restart
[2019-11-14] MEDS: DEXTROSE 5% IN WATER 1,000 ML IV SCH (21:19)
[2019-11-15] MEDS: INSULIN LISPRO 100 UNIT/ML VIAL 3 mL SUB-Q SCH ×5 (01:03→22:30)
[2019-11-15 04:49] LABS: Hematocrit 33.3 % (35.5-45.6); Hemoglobin 11.3 gm/dl (11.8-15.2); Mean Corpuscular HGB Conc 34 % (32-34); Mean Corpuscular Volume 91 fl (84-94); Platelet Count 273 K/mm3 (140-440); Red Blood Count 3.64 M/mm3 (3.65-5.03); Red Cell Distribution Width 14.4 % (13.2-15.2)
[2019-11-15 05:11] LABS: BUN/Creatinine Ratio 29; Blood Urea Nitrogen 26 mg/dL (9-20); Calcium 8.6 mg/dL (8.4-10.2); Hemolysis Index 4
[2019-11-15] MEDS: HEPARIN 5,000 UNIT/1 ML VIAL SUB-Q SCH ×3 (06:56→21:00)
[2019-11-15] MEDS: SODIUM BICARBONATE 650 MG TAB FEEDTUBE SCH ×3 (09:40→20:52)
[2019-11-15] MEDS: TAMSULOSIN 0.4 MG CAP PO SCH (11:16)
--- NOTE | 2019-11-15 14:34 | Progress Note ---
Assessment and Plan - Patient Problems (1) SIRS (systemic inflammatory response syndrome) Current Visit: Yes Status: Acute Plan to address problem: Present on admission, no sepsis Presented with tachycardia, tachypnea and leukocytosis 11/02 blood cultures negative 11/06 urine culture positive for enterococcus urinary tract infection, completed antibiotic therapy (2) Acute metabolic encephalopathy Current Visit: Yes Status: Acute Plan to address problem: Presented with altered mental status Was found to be elevated hyponatremic on admission with sodium of 170 which has now resolved Patient has had D5 W infusing until PEG tube is placed 11/02 CTH: No hemorrhage or stroke mimics,encephalomalacia is seen in the corpus stratum bilaterally with compensatory enlargement of the frontal horns, extensive periventricular low attenuation areas are seen due to chronic small vessel disease, focal small low-attenuation deep hemispheric white matter lesions are seen coronal due to chronic small vessel disease, small left thalamic lacune is seen, it is difficult to determine the age of this lacune, chronic ischemic changes are seen in the paul, cerebellar hemispheres are normal, mild cortical involution is seen. 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 Similar type findings seen on prior. Otherwise, no acute hemorrhage, mass effect, midline shift, hydrocephalus, or acute, large territorial infarct. Mild to moderate cerebral and mild cerebellar atrophy. Mild to moderate degree of hippocampal atrophy suggested bilaterally. There are moderate, confluent areas of decreased attenuation in the white matter of the cerebral hemispheres, as well as the gangliocapsular regions. These are nonspecific findings and may be related to microangiopathy (hypertension, diabetes, atherosclerosis), given the patient's age. It might be difficult to evaluate for small areas of ischemia without diffusion imaging by MRI. (3) UTI (urinary tract infection) due to Enterococcus Current Visit: Yes Status: Resolved Plan to address problem: 11/06 urine culture positive for enterococcus urinary tract infection, completed antibiotic therapy (4) Hypernatremia Current Visit: Yes Status: Resolved Plan to address problem: Admission sodium 176, 11/13 sodium 136, 11/14 sodium 135 D5W infusion until PEG tube placement, discontinued 11/14 TF via NG tube Secondary to dehydration/poor p.o. intake: improved Trend BMP (5) CHANEL (acute kidney injury) Current Visit: Yes Status: Resolved Plan to address problem: Admit creatinine 1.4 which trended up to 1.5 and trended down to 0.07 now is 0.09 on 11/13 Continue to vasomotor nephropathy decreased p.o. intake, dehydration Patient is on D5W until blood tube placements Free water flush per NG tube Trend BMP (6) DVT prophylaxis Current Visit: Yes Status: Acute Plan to address problem: Subcu heparin SCDs to bilateral lower extremities while in bed (7) Discharge planning issues Current Visit: Yes Status: Acute Plan to address problem: Several attempts were made to contact patient's family member for confirmation of PEG tube placement were unsuccessful Patient should be going back to [facility] tomorrow on History Interval history: 78-year-old male with history of dementia [facility] for changes in mental status. Patient is unable to give any history and most of the history was gotten from the ER physician. There was said to be constant at the penitentiary and patient may have an underlying infection. Work- up in the emergency room revealed leukocytosis of 18, hypernatremia of 170, el evated BUN and creatinine and slightly elevated lactic acid. Chest x-ray and urinalysis were within normal limits Patient is being treated for dehydration,SIRS and was commenced on IV fluid and also placed on empiric IV antibiotics. On 11/07 his urine culture grew out enterococcus and 11/11 he was switched from penicillin to ampicillin to p.o. amoxicillin till 11/12. On 11/10 modified barium swallow was completed and recommendation was a PEG tube placement and GI was consulted for placement. This morning RN performed a bedside swallow and he was able to tolerate liquids therefore he was started on a full liquid diet. RN contacted speech therapy for reevaluation today. Covered PCR was ordered for tomorrow morning. Pending discharge to [facility] tomorrow. 11/05/2019. Replete potassium. Hyponatremia has improved from 175> 171> 166--->156. Continue to monitor BMP closely. Nephrology following. 11/07/19; Patient was agitated and non verbal. Patient failed swallow evaluation and I order NG tube insertion and dietary consult. Increase free water. Patient was seen by psychiatry and appreciate recommendations. Disposition; per clinical course. Patient came from SNF but will discharge him back once he is stable and off NG tube feeding. 11/08/2019; patient's sodium is corrected . Patient has enterococcus UTI and started with ampicillin pending sensitivity and identification. Discussed with his sister Ms. Guo at [phone] 11/09/2019; patient failed swallow evaluation again and will continue with NG tube feeding, will do modified barium swallow. Enterococcus sensitive to penicillin and will continue with IV ampicillin. Management plan was discussed in detail with his sister Ms. Guo. 11/10/2019; patient is still on NG tube. UTI due to enterococcus sensitive to penicillin and was treated with IV ampicillin for 2 days and changed to p.o. amoxicillin [11/10/2019] to be given for 3 more days. Modified barium swallow was done and recommended PEG tube placement. I called his sister Ms. Guo at [phone] to update but did not picker tender helper her phone. I put a consult for GI to evaluate for PEG tube placement. 11/11/2019; patient is still on NG tube. UTI due to enterococcus sensitive to penicillin and was treated with IV ampicillin for 2 days and changed to p.o. amoxicillin [11/10/2019] to be given for 3 more days. Modified barium swallow was done and recommended PEG tube placement. I called his sister Ms. Guo at [phone] to update but did not picker tender helper her phone. I put a consult for GI to evaluate for PEG tube placement. 11/11 patient is awake, alert, confused, oriented to name only. No apparent distress. Lab results reviewed. GI note reviewed, awaiting PEG tube placement pending consent by the family 11/12 patient is awake and alert and oriented to name only, constantly moaning, no history is possible, GI note reviewed, family to decide on PEG tube placement after visitation today 11/13 patient is oriented to name only, Dr. Naranjo attempted to contact his sister but was unsuccessful. Hospitalist Physical - Constitutional Vitals: Temp Pulse Resp BP Pulse Ox 98.1 F 52 L 18 95/54 98 11/15/19 11:30 11/15/19 11:30 11/15/19 11:30 11/15/19 11:30 11/15/19 11:30 HEART Score - HEART Score Troponin: Troponin T < 0.010 ng/mL (0.00-0.029) 11/03/19 18:20 Results - Labs CBC & Chem 7: 11/15/19 04:26 11/15/19 04:26 Labs: Laboratory Last Values WBC 8.6 K/mm3 (4.5-11.0) 11/15/19 04:26 RBC 3.64 M/mm3 (3.65-5.03) L 11/15/19 04:26 Hgb 11.3 gm/dl (11.8-15.2) L 11/15/19 04:26 Hct 33.3 % (35.5-45.6) L 11/15/19 04:26 MCV 91 fl (84-94) 11/15/19 04:26 MCH 31 pg (28-32) 11/15/19 04:26 MCHC 34 % (32-34) 11/15/19 04:26 RDW 14.4 % (13.2-15.2) 11/15/19 04:26 Plt Count 273 K/mm3 (140-440) 11/15/19 04:26 Lymph % (Auto) 7.0 % (13.4-35.0) L 11/07/19 05:00 [place] % (Auto) 3.8 % (0.0-7.3) 11/07/19 05:00 Eos % (Auto) 0.1 % (0.0-4.3) 11/07/19 05:00 Baso % (Auto) 0.2 % (0.0-1.8) 11/07/19 05:00 Lymph # 0.9 K/mm3 (1.2-5.4) L 11/07/19 05:00 [place] # 0.5 K/mm3 (0.0-0.8) 11/07/19 05:00 Eos # 0.0 K/mm3 (0.0-0.4) 11/07/19 05:00 Baso # 0.0 K/mm3 (0.0-0.1) 11/07/19 05:00 Seg Neutrophils % 88.9 % (40.0-70.0) H 11/07/19 05:00 Add Manual Diff Complete 11/08/19 07:40 Total Counted 100 11/08/19 07:40 Seg Neutrophils # 11.7 K/mm3 (1.8-7.7) H 11/07/19 05:00 Seg Neuts % (Manual) 89.0 % (40.0-70.0) H 11/08/19 07:40 Band Neutrophils % 0 % 11/08/19 07:40 Lymphocytes % (Manual) 6.0 % (13.4-35.0) L 11/08/19 07:40 Reactive Lymphs % (Man) 0 % 11/08/19 07:40 Monocytes % (Manual) 4.0 % (0.0-7.3) 11/08/19 07:40 Eosinophils % (Manual) 0 % (0.0-4.3) 11/08/19 07:40 Basophils % (Manual) 0 % (0.0-1.8) 11/08/19 07:40 Metamyelocytes % 1.0 % 11/08/19 07:40 Myelocytes % 0 % 11/08/19 07:40 Promyelocytes % 0 % 11/08/19 07:40 Blast Cells % 0 % 11/08/19 07:40 Nucleated RBC % Not Reportable 11/08/19 07:40 Seg Neutrophils # Man 10.9 K/mm3 (1.8-7.7) H 11/08/19 07:40 Band Neutrophils # 0.0 K/mm3 11/08/19 07:40 Lymphocytes # (Manual) 0.7 K/mm3 (1.2-5.4) L 11/08/19 07:40 Abs React Lymphs (Man) 0.0 K/mm3 11/08/19 07:40 Monocytes # (Manual) 0.5 K/mm3 (0.0-0.8) 11/08/19 07:40 Eosinophils # (Manual) 0.0 K/mm3 (0.0-0.4) 11/08/19 07:40 Basophils # (Manual) 0.0 K/mm3 (0.0-0.1) 11/08/19 07:40 Metamyelocytes # 0.1 K/mm3 11/08/19 07:40 Myelocytes # 0.0 K/mm3 11/08/19 07:40 Promyelocytes # 0.0 K/mm3 11/08/19 07:40 Blast Cells # 0.0 K/mm3 11/08/19 07:40 WBC Morphology Not Reportable 11/08/19 07:40 Hypersegmented Neuts Not Reportable 11/08/19 07:40 Hyposegmented Neuts Not Reportable 11/08/19 07:40 Hypogranular Neuts Not Reportable 11/08/19 07:40 Smudge Cells Not Reportable 11/08/19 07:40 Toxic Granulation Not Reportable 11/08/19 07:40 Toxic Vacuolation Not Reportable 11/08/19 07:40 Dohle Bodies Not Reportable 11/08/19 07:40 Pelger-Huet Anomaly Not Reportable 11/08/19 07:40 Emile Rods Not Reportable 11/08/19 07:40 Platelet Estimate Consistent w auto 11/08/19 07:40 Clumped Platelets Not Reportable 11/08/19 07:40 Plt Clumps, EDTA Not Reportable 11/08/19 07:40 Large Platelets Not Reportable 11/08/19 07:40 Giant Platelets Not Reportable 11/08/19 07:40 Platelet Satelliting Not Reportable 11/08/19 07:40 Plt Morphology Comment Not Reportable 11/08/19 07:40 RBC Morphology Normal 11/08/19 07:40 Dimorphic RBCs Not Reportable 11/08/19 07:40 Polychromasia Not Reportable 11/08/19 07:40 Hypochromasia Not Reportable 11/08/19 07:40 Poikilocytosis Not Reportable 11/08/19 07:40 Anisocytosis Not Reportable 11/08/19 07:40 Microcytosis Not Reportable 11/08/19 07:40 Macrocytosis Not Reportable 11/08/19 07:40 Spherocytes Not Reportable 11/08/19 07:40 Pappenheimer Bodies Not Reportable 11/08/19 07:40 Sickle Cells Not Reportable 11/08/19 07:40 Target Cells Not Reportable 11/08/19 07:40 Tear Drop Cells Not Reportable 11/08/19 07:40 Ovalocytes Not Reportable 11/08/19 07:40 Helmet Cells Not Reportable 11/08/19 07:40 Gar[place] Bodies Not Reportable 11/08/19 07:40 [place] Rings Not Reportable 11/08/19 07:40 [place] Cells Not Reportable 11/08/19 07:40 Bite Cells Not Reportable 11/08/19 07:40 Crenated Cell Not Reportable 11/08/19 07:40 Elliptocytes Not Reportable 11/08/19 07:40 Acanthocytes (Spur) Not Reportable 11/08/19 07:40 Rouleaux Not Reportable 11/08/19 07:40 Hemoglobin C Crystals Not Reportable 11/08/19 07:40 Schistocytes Not Reportable 11/08/19 07:40 Malaria parasites Not Reportable 11/08/19 07:40 Jose Alberto Bodies Not Reportable 11/08/19 07:40 Hem Pathologist Commnt No 11/08/19 07:40 PT 16.1 Sec. (12.2-14.9) H 11/05/19 07:08 INR 1.26 (0.87-1.13) H 11/05/19 07:08 APTT 26.2 Sec. (24.2-36.6) 11/03/19 16:24 Sodium 135 mmol/L (137-145) L 11/15/19 04:26 Potassium 4.4 mmol/L (3.6-5.0) 11/15/19 04:26 Chloride 100.6 mmol/L (98-107) 11/15/19 04:26 Carbon Dioxide 22 mmol/L (22-30) 11/15/19 04:26 Anion Gap 17 mmol/L 11/15/19 04:26 BUN 26 mg/dL (9-20) H 11/15/19 04:26 Creatinine 0.9 mg/dL (0.8-1.3) 11/15/19 04:26 Estimated GFR > 60 ml/min 11/15/19 04:26 BUN/Creatinine Ratio 29 % 11/15/19 04:26 Glucose 93 mg/dL (75-100) 11/15/19 04:26 POC Glucose 105 (70-105) 11/15/19 12:18 Lactic Acid 1.70 mmol/L (0.7-2.0) 11/03/19 18:20 Calcium 8.6 mg/dL (8.4-10.2) 11/15/19 04:26 Total Bilirubin 0.50 mg/dL (0.1-1.2) 11/03/19 16:24 AST 57 units/L (5-40) H 11/03/19 16:24 ALT 27 units/L (7-56) 11/03/19 16:24 Alkaline Phosphatase 79 units/L (35-129) 11/03/19 16:24 Magnesium 2.30 mg/dL (1.7-2.3) 11/12/19 04:39 Troponin T < 0.010 ng/mL (0.00-0.029) 11/03/19 18:20 NT-Pro-B Natriuret Pep 1532 pg/mL (0-900) H 11/03/19 16:24 Total Protein 7.6 g/dL (6.3-8.2) 11/03/19 16:24 Albumin 2.5 g/dL (3.9-5) L 11/03/19 16:24 Albumin/Globulin Ratio 0.5 % 11/03/19 16:24 Lipase 36 units/L (13-60) 11/03/19 16:24 Urine Color Pam (Yellow) 11/07/19 06:55 Urine Turbidity Turbid (Clear) 11/07/19 06:55 Urine pH 5.0 (5.0-7.0) 11/07/19 06:55 Ur Specific [place] 1.016 (1.003-1.030) 11/07/19 06:55 Urine Protein 30 mg/dl mg/dL (Negative) 11/07/19 06:55 Urine Glucose (UA) Neg mg/dL (Negative) 11/07/19 06:55 Urine Ketones Neg mg/dL (Negative) 11/07/19 06:55 Urine Blood Mod (Negative) 11/07/19 06:55 Urine Nitrite Neg (Negative) 11/07/19 06:55 Urine Bilirubin Neg (Negative) 11/07/19 06:55 Urine Urobilinogen 4.0 mg/dL (<2.0) 11/07/19 06:55 Ur Leukocyte Esterase Mod (Negative) 11/07/19 06:55 Urine WBC (Auto) 27.0 /HPF (0.0-6.0) H 11/07/19 06:55 Urine RBC (Auto) 12.0 /HPF (0.0-6.0) 11/07/19 06:55 U Epithel Cells (Auto) < 1.0 /HPF (0-13.0) 11/07/19 06:55 Urine Yeast (Budding) Few /HPF 11/03/19 16:29 Uric Acid Crystals 1+ 11/07/19 06:55 Urine Mucus 3+ /HPF 11/07/19 06:55 Urine Opiates Screen Presumptive negative 11/03/19 16:29 Urine Methadone Screen Presumptive negative 11/03/19 16:29 Ur Barbiturates Screen Presumptive negative 11/03/19 16:29 Ur Phencyclidine Scrn Presumptive negative 11/03/19 16:29 Ur Amphetamines Screen Presumptive negative 11/03/19 16:29 U Benzodiazepines Scrn Presumptive negative 11/03/19 16:29 Urine Cocaine Screen Presumptive negative 11/03/19 16:29 U Marijuana (THC) Screen Presumptive negative 11/03/19 16:29 Drugs of Abuse Note Disclamer 11/03/19 16:29 Coronavirus (PCR) Negative (Negative) 11/04/19 09:56 Alcazar/IV: Voiding Method Indwelling Catheter IV Catheter Type [Left INT / Saline Lock Antecubital] IV Catheter Type [Right Upper INT / Saline Lock arm] IV Catheter Type [Left Forearm INT / Saline Lock ] Active Medications - Current Medications Current Medications: Generic Name Dose Route Start Last Admin Trade Name Freq PRN Reason Stop Dose Admin Acetaminophen 650 mg 11/04/19 00:25 11/13/19 09:26 Tylenol PO 650 mg Q4H PRN Administration Pain MILD(1-3)/Fever >100.5/VALENTIN Lipase/Protease/Amylase 1 each 11/07/19 11:03 11/13/19 21:44 Pancrebrian Panda 10,500 Unit FEEDTUBE 1 each PRN PRN Administration For Clogged Feeding Tube Heparin Sodium (Porcine) 5,000 unit 11/04/19 06:00 11/15/19 06:56 Heparin SUB-Q 5,000 unit Q8HR GIDEON Administration Insulin Human Lispro 0 unit 11/08/19 17:00 11/15/19 12:28 Humalog SUB-Q Not Given Q6H [facility] Protocol Ondansetron HCl 4 mg 11/04/19 00:25 Zofran IV Q8H PRN Nausea And Vomiting Simple Syrup 15 ml 11/07/19 11:03 Simple Syrup FEEDTUBE PRN PRN Hypoglycemia Simple Syrup 30 ml 11/07/19 11:03 Simple Syrup FEEDTUBE PRN PRN Hypoglycemia Sodium Bicarbonate 325 mg 11/07/19 11:03 Sodium Bicarbonate FEEDTUBE PRN PRN For Clogged Feeding Tube Sodium Bicarbonate 650 mg 11/08/19 14:00 11/15/19 09:40 Sodium Bicarbonate FEEDTUBE Not Given TID GIDEON Sodium Chloride 10 ml 11/04/19 10:00 11/15/19 11:16 Sodium Chloride Flush Syringe 10 Ml IV Not Given BID GIDEON Sodium Chloride 10 ml 11/04/19 00:25 Sodium Chloride Flush Syringe 10 Ml IV PRN PRN LINE FLUSH Tamsulosin HCl 0.4 mg 11/06/19 10:00 11/15/19 11:16 Flomax PO 0.4 mg QDAY GIDEON Administration Nutrition/Malnutrition Assess - Dietary Evaluation Nutrition/Malnutrition Findings: Nutrition Notes Start: 11/04/19 09:16 Freq: Status: Active Protocol: Document 11/14/19 13:13 ALMA (Rec: 11/14/19 13:17 ALMA [id number]) Co-Sign 11/14/19 13:13 LM Nutrition Notes Initial or Follow up Reassessment Current Diagnosis Acute Kidney Injury, Malnutrition Other Pertinent Diagnosis Dehydration, AMS, SIRS Current Diet Promote 75ml/hr Labs/Tests Na 137 K 4.7 BUN 27 Pertinent Medications D5W at 50ml/hr Height 5 ft 10 in Weight 69.4 kg [place] Body Weight (kg) 75.45 BMI 21.9 Weight change and time frame Wt change noted Weight Status Underweight Subjective/Other Information F/u TF tolerance. Per RN, pt's NGT pulled out. Noted family coming to discuss PEG. Percent of energy/protein needs met: 0%/0% Burn Absent Trauma Absent GI Symptoms None Current % PO Negligible Minimum of two criteria Yes Energy Intake (severe) < or equal to 50% Estimated Energy Requirement > or equal to 5 days Reduced Director [employer] Strength Measurably Reduced (severe) #1 Nutrition Diagnosis Malnutrition Diagnosis Progress(for reassessment Continues documentation) Is patient on ventilator? No Is Patient Ambulatory and/or Out of Bed No REE-([facility]-confined to bed) 8427.956 Calculation Used for Recommendations [facility] Additional Notes Protein needs are 95-119g (1.2 -1.5g/kg) Fluid needs are 1ml/kcal Nutrition Intervention Change Diet Order: TF Nutrition Support: Promote 1.0 at 75 ml/hr (goal rate) Flush 50 ml Kcal 1,800 Protein (gm) 112 Fluid (mL) 1,510 Goal #1 TF tolerance Anticipated Discharge Needs: TF Follow-Up By: 11/17/19 Additional Comments F/u PEG placement and TF restart
[2019-11-16] MEDS: HEPARIN 5,000 UNIT/1 ML VIAL SUB-Q SCH ×3 (05:00→23:39)
[2019-11-16] MEDS: INSULIN LISPRO 100 UNIT/ML VIAL 3 mL SUB-Q SCH ×4 (05:25→23:40)
[2019-11-16 06:43] LABS: BUN/Creatinine Ratio 30; Blood Urea Nitrogen 24 mg/dL (9-20); Calcium 8.5 mg/dL (8.4-10.2); Hemolysis Index 5
[2019-11-16] MEDS: SODIUM BICARBONATE 650 MG TAB FEEDTUBE SCH ×3 (09:40→22:52)
[2019-11-16] MEDS: TAMSULOSIN 0.4 MG CAP PO SCH (09:40)
--- NOTE | 2019-11-16 14:39 | Discharge Summary ---
Providers - Providers Date of Admission: 11/03/19 22:42 Date of discharge: 11/16/19 Attending physician: JES BERG 11/04/19 00:25 Consult to Physician [CONS] Routine Comment: Consulting Provider: JACQUELINE MURILLO Physician Instructions: Reason For Exam: CHANEL 11/05/19 09:05 Speech Therapy Evaluation and Treat [CONS] Routine Reason For Exam: coughing after eating 11/07/19 09:46 Consult to Dietitian/Nutrition [CONS] Routine Physician Instructions: Reason For Exam: Reason for Consult: Write/Manage Tube Feeding 11/08/19 09:50 Speech Therapy Evaluation and Treat [CONS] Routine Reason For Exam: reassess again today 11/08/19 14:59 Consult to PICC Line RN [CONS] Routine Reason For Exam: NO VEIN Type Line:: Midline Midline [Consult to PICC Line RN] [CONS] Routine Reason For Exam: NO VEINS Type Line:: Midline 11/10/19 12:42 Consult to Physician [CONS] Routine Comment: Consulting Provider: DAREN HORTA Physician Instructions: Reason For Exam: Evaluation for PEG tube placement 11/13/19 09:00 Consult to Wound/ET Nurse [CONS] Routine Reason For Exam: wound eval L inner arm, sacrum 11/13/19 13:45 Speech Therapy Evaluation and Treat [CONS] Routine Reason For Exam: dysphagia - follow up since pt better 11/15/19 12:14 Speech Therapy Evaluation and Treat [CONS] Stat Reason For Exam: swallowing evaluation [facility] Condition: Stable Pertinent studies: 11/02 CTH: No hemorrhage or stroke mimics,encephalomalacia is seen in the corpus stratum bilaterally with compensatory enlargement of the frontal horns, extensive periventricular low attenuation areas are seen due to chronic small vessel disease, focal small low-attenuation deep hemispheric white matter lesions are seen coronal due to chronic small vessel disease, small left thalamic lacune is seen, it is difficult to determine the age of this lacune, chronic ischemic changes are seen in the paul, cerebellar hemispheres are normal, mild cortical involution is seen. 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 Similar type findings seen on prior. Otherwise, no acute hemorrhage, mass effect, midline shift, hydrocephalus, or acute, large territorial infarct. Mild to moderate cerebral and mild cerebellar atrophy. Mild to moderate degree of hippocampal atrophy suggested bilaterally. There are moderate, confluent areas of decreased attenuation in the white matter of the cerebral hemispheres, as well as the gangliocapsular regions. These are nonspecific findings and may be related to microangiopathy (hypertension, diabetes, atherosclerosis), given the patient's age. It might be difficult to evaluate for small areas of ischemia without diffusion imaging by MRI. Hospital course: 78-year-old male with history of dementia was brought in from a retirement on 11/02 for changes in mental status. Patient is unable to give any history and most of the history was gotten from the ER physician. There was said to be constant at the retirement and patient may have an underlying infection. Work- up in the emergency room revealed leukocytosis of 18, hypernatremia of 170, elevated BUN and creatinine and slightly elevated lactic acid. Chest x-ray and urinalysis were within normal limits Patient is being treated for dehydration,SIRS and was commenced on IV fluid and also placed on empiric IV antibiotics. Urine analysis on 11/06 was positive for leukocyte esterase and WBC 27. On 11/07 his urine culture grew out enterococcus and 11/09 he was switched from penicillin to ampicillin to p.o. amoxicillin till 11/12. On 11/10 modified barium swallow was completed and recommendation was a PEG tube placement and GI was consulted for placement. Several attempts were made to contact his sister but was not successful. GI was consulted for PEG tube placement per ST recommendations. However on 11/14 patient became alert and started to follow commands. His RN performed a bedside swallow evaluation and he tolerated liquids therefore he was started on a full liquid diet. 11/14 his COVID 19 PCR resulted as negative. His care is being transferred to [facility]. (1) SIRS (systemic inflammatory response syndrome) Current Visit: Yes Status: Acute Plan to address problem: Present on admission, no sepsis Presented with tachycardia, tachypnea and leukocytosis 11/02 blood cultures negative 11/06 urine culture positive for enterococcus urinary tract infection, completed antibiotic therapy (2) Acute metabolic encephalopathy Current Visit: Yes Status: Acute Plan to address problem: Presented with altered mental status Was found to be elevated hyponatremic on admission with sodium of 170 which has now resolved S/P D5W IV 11/02 CTH: No hemorrhage or stroke mimics,encephalomalacia is seen in the corpus stratum bilaterally with compensatory enlargement of the frontal horns, extensive periventricular low attenuation areas are seen due to chronic small vessel disease, focal small low-attenuation deep hemispheric white matter lesions are seen coronal due to chronic small vessel disease, small left thalamic lacune is seen, it is difficult to determine the age of this lacune, chronic ischemic changes are seen in the paul, cerebellar hemispheres are normal, mild cortical involution is seen. 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 Similar type findings seen on prior. Otherwise, no acute hemorrhage, mass effect, midline shift, hydrocephalus, or acute, large territorial infarct. Mild to moderate cerebral and mild cerebellar atrophy. Mild to moderate degree of hippocampal atrophy suggested bilaterally. There are moderate, confluent areas of decreased attenuation in the white matter of the cerebral hemispheres, as well as the gangliocapsular regions. These are nonspecific findings and may be related to microangiopathy (hypertension, diabetes, atherosclerosis), given the patient's age. It might be difficult to evaluate for small areas of ischemia without diffusion imaging by MRI. (3) UTI (urinary tract infection) due to Enterococcus Current Visit: Yes Status: Resolved Plan to address problem: 11/06 urine culture positive for enterococcus urinary tract infection, completed antibiotic therapy (4) Hypernatremia Current Visit: Yes Status: Resolved Plan to address problem: Admission sodium 176, 11/13 sodium 136, 11/14 sodium 135, discharge sodium 139 on 11/15 D5W infusion until PEG tube placement, discontinued 11/14 Secondary to dehydration/poor p.o. intake: improved (5) CHANEL (acute kidney injury) Current Visit: Yes Status: Resolved Plan to address problem: Admit creatinine 1.4 which trended up to 1.5 and trended down to 0.07 now is 0.09 on 11/13 Continue to vasomotor nephropathy decreased p.o. intake, dehydration Discharge creatinine 0.8 on 11/15 Disposition: [id number] [facility] Time spent for discharge: 40 Core Measure Documentation - Palliative Care Palliative Care/ Comfort Measures: Not Applicable - Core Measures Any of the following diagnoses?: none Exam - Constitutional Vitals: Temp Pulse Resp BP Pulse Ox 98.0 F 63 22 127/68 94 11/16/19 12:16 11/16/19 12:16 11/16/19 12:16 11/16/19 12:16 11/16/19 12:16 General appearance: Present: no acute distress - EENT Eyes: Present: EOM intact ENT: hearing intact, poor dentition - Neck Neck: Present: normal ROM - Respiratory Respiratory effort: normal Respiratory: bilateral: CTA - Cardiovascular Rhythm: regular Heart Sounds: Present: S1 & S2. Absent: systolic murmur, diastolic murmur - Extremities Extremities: no ischemia, pulses intact, pulses symmetrical, No edema, normal temperature, normal color, Full ROM - Abdominal General gastrointestinal: Present: soft, non-tender, normal bowel sounds - Integumentary Integumentary: Present: clear, warm, dry - Musculoskeletal Musculoskeletal: strength equal bilaterally - Psychiatric Psychiatric: cooperative - Neurologic Neurologic: CNII-XII intact, no focal deficits, moves all extremities Plan Activity: advance as tolerated Diet: per dietitian instruction Additional Instructions: Present to nearest emergency department or contact primary care physician if you experience worsening symptoms. Follow-up with your care physician within 1 to 2 weeks of discharge. Care is being transferred to [facility]. Follow up with: RJ SCHROEDER MD [Primary Care Provider] - 7 Days
[2019-11-17] MEDS: HEPARIN 5,000 UNIT/1 ML VIAL SUB-Q SCH (06:09)
[2019-11-17] MEDS: INSULIN LISPRO 100 UNIT/ML VIAL 3 mL SUB-Q SCH (06:18)
[2019-11-17 06:48] VITALS: BP 86/41
[2019-11-17] MEDS: SODIUM BICARBONATE 650 MG TAB FEEDTUBE SCH (09:00)
[2019-11-17] MEDS: TAMSULOSIN 0.4 MG CAP PO SCH (09:00)
[2019-11-17 10:03] LABS: BUN/Creatinine Ratio 23; Blood Urea Nitrogen 18 mg/dL (9-20); Calcium 8.7 mg/dL (8.4-10.2); Hemolysis Index 10
== END 2019-11-17 12:27 | DRG 91 ==
LOC: ED 13:51 → OBSVTOIN 22:42 → 4A 22:42 → 3A 11-04 00:34
PROVIDERS: ADMIT Internal Medicine Geriatric Medicine; ATTEND Internal Medicine
DX: G92 Toxic encephalopathy (principal); N17.0 Acute kidney failure with tubular necrosis; E87.0 Hyperosmolality and hypernatremia; R65.10 Systemic inflammatory response syndrome (SIRS) of non-infectious origin without acute organ dysfunction; E86.0 Dehydration; E87.6 Hypokalemia; Z20.828 Contact with and (suspected) exposure to other viral communicable diseases; F03.90 Unspecified dementia, unspecified severity, without behavioral disturbance, psychotic disturbance, mood disturbance, and anxiety; N39.0 Urinary tract infection, site not specified; B95.2 Enterococcus as the cause of diseases classified elsewhere; E87.2 Acidosis; R13.10 Dysphagia, unspecified; Z79.899 Other long term (current) drug therapy
CPT/HCPCS: 36415; 70450; 71045; 74018; 74230; 80048; 80053; 80307; 81001; 82140; 82962; 83690; 83735; 83880; 84484; 85007; 85025; 85027; 85610; 85730; 87040; 87076; 87086; 87186; 93005; 94760; 96361; 96365; 96366; G0378; J0290; J0692; J1170; J1644; J1885; J3480; J7030; J7040; J7070; U0003-CS